=== PATIENT | female | born 1955 | race Caucasian/White ===

== ENCOUNTER → 2016-09-12 | Outpatient (CLI) | payer OTHER ==
[~2016-09-12] MED LIST: CALC-354 PO; CETI10TA84 PO; CHOL1TAB46 PO; CHOL20005 PO; LORA10TA51 PO; MULT-1092 PO; VNTHFA/IN INH
--- NOTE | 2016-09-12 11:21 | DIAGNOSTIC IMAGING REPORT ---
CHEST 2 VIEWS ROUTINE CLINICAL HISTORY: Chest tightness/pressure. COMPARISON STUDY: No previous studies for comparison. FINDINGS: There is no pneumothorax or pleural effusion. There is S-shaped scoliosis of the thoracolumbar spine and pectus excavatum deformity. There is no evidence of pulmonary edema. No consolidation is identified to suggest pneumonia. No pneumothorax or pleural effusion is present. A nipple shadow projects over the left lower lung. IMPRESSION: 1. No acute cardiopulmonary findings. 2. S-shaped scoliosis of the thoracolumbar spine and pectus excavatum deformity. Electronically signed by: Osvaldo Mcadams M.D. 09/12/2016 11:19 AM Dictated Date/Time: 09/12/2016 11:18 AM
[2016-09-12 13:41] LABS: BASO % 1.4 %; BASO ABS # 0.07 K/uL (0-0.2); COMPLETE YES; EOS % 3.2 %; HEMATOCRIT 42.9 % (37-47); IG% 0.2 %; LYMPH % 25.8 %; MEAN CELL VOLUME 91.5 fL (80-100); MEAN CORPUSCULAR HEMOGLOBIN 29.9 pg (25-34); MEAN CORPUSCULAR HGB CONC 32.6 g/dl (32-36); MEAN PLATELET VOLUME 9.7 fL (7.4-10.4); MONO % 10.7 %; NEUT % 58.7 %; PLATELET COUNT 233 K/uL (130-400); RED BLOOD COUNT 4.69 M/uL (4.2-5.4); WHITE BLOOD COUNT 5.03 K/uL (4.8-10.8)
[2016-09-12 14:15] LABS: ALT/SGPT 19 U/L (12-78); BLOOD UREA NITROGEN 16 mg/dl (7-18); BUN/CREATININE RATIO 18.3 (10-20); CALCIUM 9.5 mg/dl (8.5-10.1); CARBON DIOXIDE 26 mmol/L (21-32); CHLORIDE 105 mmol/L (98-107); CREATININE 0.89 mg/dl (0.60-1.20); GLUCOSE 98 mg/dl (70-99); MAGNESIUM 2.3 mg/dl (1.8-2.4); POTASSIUM 3.8 mmol/L (3.5-5.1); SODIUM 140 mmol/L (136-145)
[2016-09-12 14:28] LABS: ALB/GLOB RATIO 1.2 (0.9-2); ALKALINE PHOSPHATASE 60 U/L (45-117); AST/SGOT 13 U/L (15-37)
== END | disposition home or self-care (01) ==
LOC: C.RAD1850 11:05
PROVIDERS: ATTEND Nurse Practitioner
DX: R07.89 Other chest pain (principal)

== ENCOUNTER 2016-09-20 12:54 | Observation (INO) | payer OTHER ==
[~2016-09-20] VITALS: Ht 160 cm; Wt 52.6 kg
[2016-09-20] MEDS ORDERED: ASPIRIN 81 MG CHEW PO STA (13:17)
--- NOTE | 2016-09-20 13:36 | EMERGENCY ROOM VISIT NOTE ---
History First contact with patient: 12:58 Chief Complaint: CHEST PAIN Stated Complaint: CHEST PAIN, L ARM PAIN, SOB, HEART PALPATATIONS Nursing Triage Summary: Pt reports "pinching" intermittent midsternal chest pain, none at present time. States over the past month she has episodes of sob and her heart racing. States she does feel her heart racing in triage. Pt reports "lame" feeling in left shoulder and left wrist/hand. States she is scheduled to have a stress test on . History of Present Illness The patient is a 61 year old female who presents to the Emergency Room via private vehicle accompanied by family with complaints of "chest pain, left arm pain, shortness of breath, heart palpitations". The patient states that since the middle of August she has noticed that her heartbeat seems stronger, and she at times will feel a skipped beat or palpitations of the heart. She states that she did have chest congestion in the past and thought that it could be from this. She states that she saw her family doctor in early September, as she became winded upon ascending stairs. She states that last Monday she saw her family doctor, who placed her upon Claritin, Zyrtec and gave her an inhaler because of the congestion. She states that basic blood work was performed as well as chest x-ray which were normal. 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 There is also a dull sensation in the chest. She denies any pain currently. She denies any history of hypertension or cholesterol. She used to smoke in the past. Review of Systems A complete 10-point Review of Systems was discussed with the patient, with pertinent positives and negatives listed in the History of Present Illness. All remaining Review of Systems questions can be considered negative unless otherwise specified. Past Medical/Surgical History Medical Problems: (1) Chest pain Stomach problems, ulcer Family History Heart disease, high blood pressure, cancer. Social History Smoking Status: Former Smoker Social History: Patient is currently employed and lives alone. Current/Historical Medications Scheduled Calcium Carbonate-Cholecalcife (Caltrate 600+D), 1 TAB PO DAILY Cetirizine (Zyrtec), 10 MG PO QAM Cholecalciferol (Vitamin D3), 2,000 UNITS PO Q2D Cholecalciferol (Vitamin D3), 5,000 UNITS PO Q2D Loratadine (Claritin), 10 MG PO HS Multiple Vitamins W/ Minerals (Centrum Silver 50+Women), 1 TAB PO DAILY Scheduled PRN Albuterol Hfa (Ventolin Hfa), 2-4 PUFFS INH Q6H PRN for Shortness of Breath Allergies Coded Allergies: Latex (Unverified Allergy, Unknown, ., 09/20/16) Uncoded Allergies: UNKOWN MED (Allergy, Mild, HIVES, 09/20/16) had sore on finger and had a herpatic walter got hives from med but doesn't remember name Physical Exam Vital Signs Date Time Temp Pulse Resp B/P (MAP) Pulse Ox O2 Delivery O2 Flow Rate FiO2 09/20/16 17:32 59 20 132/99 96 Room Air 09/20/16 17:10 60 09/20/16 16:25 59 20 151/96 96 Room Air 09/20/16 16:15 96 Room Air 09/20/16 14:29 126/83 09/20/16 14:24 70 13 97 09/20/16 14:01 145/94 09/20/16 13:54 70 18 99 09/20/16 13:31 155/89 09/20/16 13:24 83 20 98 09/20/16 13:10 85 09/20/16 13:08 96 Room Air 09/20/16 13:05 146/92 09/20/16 12:57 36.7 93 18 131/90 97 Room Air Physical Exam VITAL SIGNS - Vital signs and nursing notes were reviewed. Patient is afebrile , but pressure 131/90, non-tachycardic and is saturating well on room air 97%. GENERAL -61-year-old female appearing her stated age who is in no acute distress. Communicates well with provider and answers questions appropriately. SKIN - Without rashes. No petechial rashes. HEAD - NC/AT. LUNGS - Chest wall symmetric without accessory muscle use, intercostals retractions, or central cyanosis. Normal vesicular breath sounds CTA B/L. No wheezes, rales, or rhonchi appreciated. CARDIAC - RRR with S1/S2. No murmur, rubs, or gallops appreciated. ABDOMEN - Abdominal contour without pulsations or visible masses. BS normoactive all four quadrants. No tenderness, palpable masses, hepatosplenomegaly, or ascites noted. EXTREMITIES - No clubbing or peripheral cyanosis. No pretibial edema present. +5 /5 strength noted in UE/LE bilaterally. NEUROLOGIC - Cranial nerves II through XII grossly intact. Sensory intact to light touch throughout. PSYCH - A&O. Pt is very pleasant and interacts well with examiner. Medical Decision & Procedures ER Provider Diagnostic Interpretation: CHEST ONE VIEW PORTABLE CLINICAL HISTORY: Chest pressure, dyspnea pain COMPARISON STUDY: 09/12/2016 FINDINGS: The bones soft tissues and hemidiaphragms are normal. The cardiomediastinal silhouette is normal. The lungs are clear. The pulmonary vasculature is normal. IMPRESSION: Negative chest. The above report was generated using voice recognition software. It may contain grammatical, syntax or spelling errors. Electronically signed by: Lon Castillo M.D. 09/20/2016 1:48 PM Laboratory Results 09/20/16 13:30 Red Blood Count 4.47, Mean Corpuscular Volume 89.3, Mean Corpuscular Hemoglobin 30.0, Mean Corpuscular Hemoglobin Concent 33.6, Mean Platelet Volume 8.9, Neutrophils (%) (Auto) 52.3, Lymphocytes (%) (Auto) 37.6, Monocytes (%) (Auto) 7.9, Eosinophils (%) (Auto) 1.3, Basophils (%) (Auto) 0.9, Neutrophils # (Auto) 2.80, Lymphocytes # (Auto) 2.01, Monocytes # (Auto) 0.42, Eosinophils # (Auto) 0.07, Basophils # (Auto) 0.05 09/20/16 13:30 Test 09/20/16 13:30 09/20/16 13:35 White Blood Count 5.35 K/uL (4.8-10.8) Red Blood Count 4.47 M/uL (4.2-5.4) Hemoglobin 13.4 g/dL (12.0-16.0) Hematocrit 39.9 % (37-47) Mean Corpuscular Volume 89.3 fL (80-100) Mean Corpuscular Hemoglobin 30.0 pg (25-34) Mean Corpuscular Hemoglobin Concent 33.6 g/dl (32-36) Platelet Count 223 K/uL (130-400) Mean Platelet Volume 8.9 fL (7.4-10.4) Neutrophils (%) (Auto) 52.3 % Lymphocytes (%) (Auto) 37.6 % Monocytes (%) (Auto) 7.9 % Eosinophils (%) (Auto) 1.3 % Basophils (%) (Auto) 0.9 % Neutrophils # (Auto) 2.80 K/uL (1.4-6.5) Lymphocytes # (Auto) 2.01 K/uL (1.2-3.4) Monocytes # (Auto) 0.42 K/uL (0.11-0.59) Eosinophils # (Auto) 0.07 K/uL (0-0.5) Basophils # (Auto) 0.05 K/uL (0-0.2) RDW Standard Deviation 40.1 fL (36.4-46.3) RDW Coefficient of Variation 12.4 % (11.5-14.5) Immature Granulocyte % (Auto) 0.0 % Immature Granulocyte # (Auto) 0.00 K/uL (0.00-0.02) Prothrombin Time 10.7 SECONDS (9.0-12.0) Prothromb Time International Ratio 1.0 (0.9-1.1) Activated Partial Thromboplast Time 30.3 SECONDS (21.0-31.0) Partial Thromboplastin Ratio 1.2 Anion Gap 6.0 mmol/L (3-11) Est Creatinine Clear Calc Drug Dose 49.4 ml/min Estimated GFR () 72.7 Estimated GFR (Non- 62.7 BUN/Creatinine Ratio 22.1 (10-20) Calcium Level 9.5 mg/dl (8.5-10.1) Total Bilirubin 0.5 mg/dl (0.2-1) Aspartate Amino Transf (AST/SGOT) 18 U/L (15-37) Alanine Aminotransferase (ALT/SGPT) 22 U/L (12-78) Alkaline Phosphatase 53 U/L (45-117) Total Protein 7.4 gm/dl (6.4-8.2) Albumin 4.0 gm/dl (3.4-5.0) Globulin 3.4 gm/dl (2.5-4.0) Albumin/Globulin Ratio 1.2 (0.9-2) Thyroid Stimulating Hormone (TSH) 1.820 uIu/ml (0.300-4.500) Lyme Disease IgG Antibody NEG (NEG) Lyme Disease IgM Antibody NEG (NEG) Bedside D-Dimer 259 ng/mlFEU (0-450) Bedside Troponin I < 0.030 ng/ml (0-0.045) Medications Administered Medications (Trade) Dose Ordered Sig/Tong Route Start Time Stop Time Status Last Admin Dose Admin Aspirin (Aspirin Chew) 324 mg NOW STAT PO 09/20/16 13:17 09/20/16 13:19 DC 09/20/16 13:38 324 MG Medical Decision Patient was seen and evaluated as above. After obtaining a thorough history and physical examination IV access was initiated. Workup was performed. Patient presents to us today with chest pain that has been going on for approximately 1 month, however today became exertional. She states that she was scheduled for a stress test this , but because of her exertional symptoms came here to the emergency department. Today's exertional symptoms were associated with that of left shoulder discomfort and left hand tingling. She has no previous history of cardiac events. Chest x-ray was negative. CBC reveals no leukocytosis or anemia. Coags were unremarkable. D-dimer is normal. CMP reveals potassium low at 3.3, chloride high at 110. Troponin is negative. TSH is unremarkable. Testing is negative. Patient's EKG reveals sinus rhythm with PACs. There is a nonspecific ST segment abnormality. There is no previous for comparison. The patient this time I believe should be admitted for further evaluation and management of her exertional chest pain. The case was discussed with my attending, and subsequently the hospitalist. Please refer to further evaluation and management regarding her stay. In the evaluation treatment this patient following differential diagnoses were entertained: MD, PE, unstable angina, angina, costochondritis, GERD, among others. Impression Primary Impression: Chest pain Additional Impression: Hypokalemia Departure Information Dispostion Admitted as an inpatient Condition FAIR Referrals Elza Barrera C.R.N.P. (PCP) Patient Instructions My [facility] Problem Qualifiers
[2016-09-20 13:42] LABS: BASO % 0.9 %; BASO ABS # 0.05 K/uL (0-0.2); COMPLETE YES; EOS % 1.3 %; HEMATOCRIT 39.9 % (37-47); LYMPH % 37.6 %; LYMPH ABS # 2.01 K/uL (1.2-3.4); MEAN CELL VOLUME 89.3 fL (80-100); MEAN CORPUSCULAR HGB CONC 33.6 g/dl (32-36); MEAN PLATELET VOLUME 8.9 fL (7.4-10.4); MONO % 7.9 %; NEUT % 52.3 %; PLATELET COUNT 223 K/uL (130-400); RED BLOOD COUNT 4.47 M/uL (4.2-5.4); WHITE BLOOD COUNT 5.35 K/uL (4.8-10.8)
[2016-09-20] MEDS ORDERED: LORA10TA51 PO (13:47)
[2016-09-20] MEDS ORDERED: CHOL1TAB46 PO (13:47)
[2016-09-20] MEDS ORDERED: MULT-1092 PO (13:47)
[2016-09-20] MEDS ORDERED: VNTHFA/IN INH (13:47)
[2016-09-20] MEDS ORDERED: CHOL20005 PO (13:47)
[2016-09-20] MEDS ORDERED: CALC-354 PO (13:47)
[2016-09-20] MEDS ORDERED: CETI10TA84 PO (13:47)
--- NOTE | 2016-09-20 13:49 | DIAGNOSTIC IMAGING REPORT ---
CHEST ONE VIEW PORTABLE CLINICAL HISTORY: Chest pressure, dyspnea pain COMPARISON STUDY: 09/12/2016 FINDINGS: The bones soft tissues and hemidiaphragms are normal. The cardiomediastinal silhouette is normal. The lungs are clear. The pulmonary vasculature is normal. IMPRESSION: Negative chest. The above report was generated using voice recognition software. It may contain grammatical, syntax or spelling errors. Electronically signed by: Lon Castillo M.D. 09/20/2016 1:48 PM Dictated Date/Time: 09/20/2016 1:47 PM
[2016-09-20 13:50] LABS: PARTIAL THROMBOPLASTIN RATIO 1.2; PROTHROMBIN TIME (PATIENT) 10.7 SECONDS (9.0-12.0)
[2016-09-20 13:54] LABS: POINT OF CARE TROPONIN I < 0.030 ng/ml (0-0.045)
[2016-09-20 14:04] LABS: BUN/CREATININE RATIO 22.1 (10-20); CALCIUM 9.5 mg/dl (8.5-10.1); CREATININE 0.98 mg/dl (0.60-1.20); POTASSIUM 3.3 mmol/L (3.5-5.1)
[2016-09-20 14:15] LABS: ALB/GLOB RATIO 1.2 (0.9-2); THYROID STIMULATING HORMONE 1.82 uIu/ml (0.300-4.500)
[2016-09-20 14:40] LABS: LYME DISEASE AB IGG NEG (NEG); LYME DISEASE AB IGM NEG (NEG)
[2016-09-20 16:15] VITALS: O2SAT 96; Ht 160 cm; Wt 52.6 kg
[2016-09-20] MEDS ORDERED: MoRPHine SULFATE 2 MG/ML CARP IV PRN (17:00)
[2016-09-20] MEDS ORDERED: NITROGLYCERIN 0.4 MG SL PER TAB CHARGE SL PRN (17:00)
[2016-09-20] MEDS ORDERED: ACETAMINOPHEN 325 MG TAB PO PRN (17:00)
[2016-09-20] MEDS ORDERED: ONDANSETRON INJ 2 MG/ML 2 ML VIAL IV PRN (17:00)
[2016-09-20] MEDS ORDERED: ALBUTEROL HFA 8 GM INHALER INH PRN (17:15)
--- NOTE | 2016-09-20 17:54 | History and Physical ---
History & Physical Date & Time of Service: Sep 20, 2016 at 16:32 Chief Complaint: Chest Pain, L Arm Pain, Sob, Heart Palpatations Primary Care Physician: Elza Barrera C.R.N.P. History of Present Illness Source: patient, family Pt is a 61 yo female with a h/o osteoporosis and seasonal allergies who presents with a h/o 1 month of intermittent chest tightness that waxes and wanes and palpitations that are intermittent. She was having some associated post-nasal gtt and cough with chest congestion for a few months prior. Thought to initially be from allergies. She was prescribed Claritin and Zyrtec and albuterol inhaler by PCP, had CXR and ECG which were normal as per pt. The meds did help with her congestion in her face and chest but the chest tightness and palpitations never went away. In fact, the chest pressure is constant and has never gone away in over one month. The palpitations do come on every day and tend to be later in the afternoon. 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 Denies associated N/V, no associated diaphoresis. No syncope. SHe came to the ER due to the acute worsening of the atypical chest pain. 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) Allergies Coded Allergies: Latex (Unverified Allergy, Unknown, ., 09/20/16) Uncoded Allergies: UNKOWN MED (Allergy, Mild, HIVES, 09/20/16) had sore on finger and had a herpatic walter got hives from med but doesn't remember name Home Medications Scheduled Calcium Carbonate-Cholecalcife (Caltrate 600+D), 1 TAB PO DAILY Cetirizine (Zyrtec), 10 MG PO QAM Cholecalciferol (Vitamin D3), 2,000 UNITS PO Q2D Cholecalciferol (Vitamin D3), 5,000 UNITS PO Q2D Loratadine (Claritin), 10 MG PO HS Multiple Vitamins W/ Minerals (Centrum Silver 50+Women), 1 TAB PO DAILY Scheduled PRN Albuterol Hfa (Ventolin Hfa), 2-4 PUFFS INH Q6H PRN for Shortness of Breath Review of Systems Constitutional: No fever, No chills Eyes: No problem reported ENT: No problem reported Respiratory: + cough (occasionally with her palpitations), + shortness of breath (off and on at rest and sometimes with exertion) Cardiovascular: + chest pain, + palpitations, No edema Abdomen: No pain, No nausea, No vomiting Musculoskeletal: No problem reported Genitourinary - Female: No problem reported Neurologic: + numbness/tingling (left hand) Psychiatric: + anxiety Endocrine: No problem reported Hematologic / Lymphatic: No problem reported Integumentary: No problem reported Allergic / Immunologic: + seasonal allergies Physical Exam Vital Signs Date Time Temp Pulse Resp B/P (MAP) Pulse Ox O2 Delivery O2 Flow Rate FiO2 09/20/16 16:25 59 20 151/96 96 Room Air 09/20/16 14:29 126/83 09/20/16 14:24 70 13 97 09/20/16 14:01 145/94 09/20/16 13:54 70 18 99 09/20/16 13:31 155/89 09/20/16 13:24 83 20 98 09/20/16 13:10 85 09/20/16 13:08 96 Room Air 09/20/16 13:05 146/92 09/20/16 12:57 36.7 93 18 131/90 97 Room Air General Appearance: no apparent distress, + thin Head: normocephalic, atraumatic Eyes: normal inspection, EOMI, sclerae normal ENT: hearing grossly normal, pharynx normal Neck: no JVD, trachea midline Respiratory/Chest: lungs clear, normal breath sounds, no respiratory distress, no accessory muscle use Cardiovascular: regular rate, rhythm, no edema, no gallop, + diastolic murmur ( 2/6 heard best at LLSB into apex), + extra beats Abdomen/GI: normal bowel sounds, non tender, soft, no organomegaly, no pulsatile mass Back: normal inspection Extremities/Musculoskelatal: normal inspection, no calf tenderness, normal capillary refill, no pedal edema, + pertinent finding (2+ DP pulses bilat, no wounds) Neurologic/Psych: alert, oriented x 3, + pertinent finding (very anxious, talkative) Skin: normal color, warm/dry, no rash Lymphatic: no adenopathy Diagnostics Laboratory Results Results Past 24 Hours Test 09/20/16 13:30 09/20/16 13:35 Range/Units White Blood Count 5.35 4.8-10.8 K/uL Red Blood Count 4.47 4.2-5.4 M/uL Hemoglobin 13.4 12.0-16.0 g/dL Hematocrit 39.9 37-47 % Mean Corpuscular Volume 89.3 80-100 fL Mean Corpuscular Hemoglobin 30.0 25-34 pg Mean Corpuscular Hemoglobin Concent 33.6 32-36 g/dl Platelet Count 223 130-400 K/uL Mean Platelet Volume 8.9 7.4-10.4 fL Neutrophils (%) (Auto) 52.3 % Lymphocytes (%) (Auto) 37.6 % Monocytes (%) (Auto) 7.9 % Eosinophils (%) (Auto) 1.3 % Basophils (%) (Auto) 0.9 % Neutrophils # (Auto) 2.80 1.4-6.5 K/uL Lymphocytes # (Auto) 2.01 1.2-3.4 K/uL Monocytes # (Auto) 0.42 0.11-0.59 K/uL Eosinophils # (Auto) 0.07 0-0.5 K/uL Basophils # (Auto) 0.05 0-0.2 K/uL RDW Standard Deviation 40.1 36.4-46.3 fL RDW Coefficient of Variation 12.4 11.5-14.5 % Immature Granulocyte % (Auto) 0.0 % Immature Granulocyte # (Auto) 0.00 0.00-0.02 K/uL Prothrombin Time 10.7 9.0-12.0 SECONDS Prothromb Time International Ratio 1.0 0.9-1.1 Activated Partial Thromboplast Time 30.3 21.0-31.0 SECONDS Partial Thromboplastin Ratio 1.2 Sodium Level 140 136-145 mmol/L Potassium Level 3.3 3.5-5.1 mmol/L Chloride Level 110 98-107 mmol/L Carbon Dioxide Level 24 21-32 mmol/L Anion Gap 6.0 3-11 mmol/L Blood Urea Nitrogen 22 7-18 mg/dl Creatinine 0.98 0.60-1.20 mg/dl Est Creatinine Clear Calc Drug Dose 49.4 ml/min Estimated GFR () 72.7 Estimated GFR (Non- 62.7 BUN/Creatinine Ratio 22.1 10-20 Random Glucose 87 70-99 mg/dl Calcium Level 9.5 8.5-10.1 mg/dl Total Bilirubin 0.5 0.2-1 mg/dl Aspartate Amino Transf (AST/SGOT) 18 15-37 U/L Alanine Aminotransferase (ALT/SGPT) 22 12-78 U/L Alkaline Phosphatase 53 45-117 U/L Total Protein 7.4 6.4-8.2 gm/dl Albumin 4.0 3.4-5.0 gm/dl Globulin 3.4 2.5-4.0 gm/dl Albumin/Globulin Ratio 1.2 0.9-2 Thyroid Stimulating Hormone (TSH) 1.820 0.300-4.500 uIu/ml Lyme Disease IgG Antibody NEG NEG Lyme Disease IgM Antibody NEG NEG Bedside D-Dimer 259 0-450 ng/mlFEU Bedside Troponin I < 0.030 0-0.045 ng/ml CXR normal EKG NSR, PACs, mild depression ST segment V5-6 Impression Assessment and Plan Pt is a 61 yo female with a h/o osteoporosis and seasonal allergies who presents with a h/o 1 month of intermittent chest tightness that waxes and wanes and palpitations that are intermittent. She was having some associated post-nasal gtt and cough with chest congestion for a few months prior. Thought to initially be from allergies. She was prescribed Claritin and Zyrtec and albuterol inhaler by PCP, had CXR and ECG which were normal as per pt. The meds did help with her congestion in her face and chest but the chest tightness and palpitations never went away. In fact, the chest pressure is constant and has never gone away in over one month. The palpitations do come on every day and tend to be later in the afternoon. 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 Denies associated N/V, no associated diaphoresis. No syncope. SHe came to the ER due to the acute worsening of the atypical chest pain. Atypical Chest pain-->not likely to be cardiac in nature given it has been constant for over a month now. Troponin negative on admission, no definite ischemic changes on ECG. -trend troponins -check Stress ECHO -appreciate Cardiology consult for any further input Palpitations, frequent PACs--> likely PACs as cause of her palpitations. Very anxious person in general, caffeine use, recent antihistamine and albuterol use all could be contributing as well. Has diastolic murmur as well on exam. TSH normal -tele monitoring to assess for burden of PACs, may need Holter as outpatient as well -advised to cut out all caffeine and chocolate -consider starting beta alexandre -Cardio consult -check ECHO for further eval of murmur especially in light of +FH of valvular issues -Hypokalemia--> replace with po KCl Osteoporosis-stable -taking Vit D, Calcium, receives outpt treatment Anxiety--> exacerbated by hospital stay -consider SSRI as outpt if continues Seasonal allergies- avoid antihistamines right now given frequent PACs Proph-Lovenox Dispo-expect dc to home tomorrow after Cardiac evaluation Level of Care Telemetry Resuscitation Status FULL RESUSCITATION VTE Prophylaxis VTE Risk Assessment Done? Y/N: Yes Risk Level: Low Given or contraindicated: Enoxaparin (Lovenox)SQ Social Service Consult None Apply Additional Copies To Elza Barrera C.R.N.P.
--- NOTE | 2016-09-20 18:37 | Medical Student: [facility] ---
Med Student History & Physical Date & Time of Service: Sep 20, 2016 at 18:03 Chief Complaint: Chest Pain, L Arm Pain, Sob, Heart Palpatations Primary Care Physician: Elza Barrera C.R.N.P. History of Present Illness Source: patient 61yo female presenting with one month history persistent chest tightness, SOB, and intermittent palpitations with concurrent dizziness. Initially thought to be associated with seasonal allergies which have been reported as significant this year - itchy ears, itchy/water eyes, cough at end of day. Patient reports continuous chest tightness that changes in intensity but has been continuously present for 1month which she feels causes SOB. These sensations tend to worsen with exertion and are improved somewhat with rest but are not completely relieved. She has also had occasional sharp "pinches" of chest pain that are transient. Throughout, patient also reports daily palpitations where she becomes extremely aware of her heart beat, she is unable to identify how long these sensations last. Patient went to her PCP on 09/12 for symptom relief and was given Claritin, Zyrtec, and albuterol which relieved the allergy symptoms but had limited effect on chest tightness and palpitations. An ekg and chest x- ray were also done with normal results per patient and an outpatient stress test was ordered for later this week. Patient reports she was cleaning a home, carrying a vacuum in her RT hand up a set of stairs when she suddenly began to feel numbness/tingling in her LT hand in addition to LT shoulder/arm "lame-ness ". These sensations continued today and so she came to the ED for evaluation. Denies any NV, changes in urinary/bowel habits, fevers, tachypnea, rashes, new medications/environments (other than documented), diaphoresis, syncope, or pre- syncope. Reports one episode of dizziness upon standing several weeks ago after getting out of a hot car. She states that she has never experienced similar chest tightness before, but has felt skipped beats previously although not this frequently. Past Medical/Surgical History PMH Osteoporosis GERD Herpes Simplex Virus - genital Allergies: Latex, seasonal Vaccinations: up to date PSH None Family History Father: congenital v. 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 Lives alone 1 daughter, 1 son Former smoker - occasionally in high school and college, fully quit 32years ago Occasional alcohol - wine maybe once a week Denies illicit drug use Activity: does Pilates regularly Smoking Status: Former Smoker (smoked occasionally in [employer] school and college , quit 35 yrs ago) Smokeless Tobacco Use: No Alcohol Use: occasionally (1 glass wine once weekly) Drug Use: none 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) Allergies Coded Allergies: Latex (Unverified Allergy, Unknown, ., 09/20/16) Uncoded Allergies: UNKOWN MED (Allergy, Mild, HIVES, 09/20/16) had sore on finger and had a herpatic walter got hives from med but doesn't remember name Medications Albuterol Hfa (Ventolin Hfa), 2-4 PUFFS INH Q6H PRN for Shortness of Breath Calcium Carbonate-Cholecalcife (Caltrate 600+D), 1 TAB PO DAILY Cetirizine (Zyrtec), 10 MG PO QAM Cholecalciferol (Vitamin D3), 2,000 UNITS PO Q2D Cholecalciferol (Vitamin D3), 5,000 UNITS PO Q2D Loratadine (Claritin), 10 MG PO HS Multiple Vitamins W/ Minerals (Centrum Silver 50+Women), 1 TAB PO DAILY Review of Systems Constitutional: No fever, No chills, No sweats, No weight loss Eyes: No problem reported ENT: + dental problems (Chronic - work being done) Respiratory: + shortness of breath, + dyspnea on exertion (occasionally) Cardiovascular: + chest pain (occasional, sharp "pinch"), + palpitations (daily ), No edema Abdomen: + diarrhea (1 episode 09/19 ), No pain, No nausea, No vomiting Musculoskeletal: + problem reported (LT shoulder/arm "lame-ness"), No swelling Neurologic: + numbness/tingling (LT hand, intermittent), + vertigo Psychiatric: + anxiety Allergic / Immunologic: + environmental allergies, + seasonal allergies, + food allergies (sulfites, hazelnut sensitivities) Physical Exam Vital Signs (24 Hours) Date Time Temp Pulse Resp B/P (MAP) Pulse Ox O2 Delivery O2 Flow Rate FiO2 09/20/16 17:32 59 20 132/99 96 Room Air 09/20/16 17:10 60 09/20/16 16:25 59 20 151/96 96 Room Air 09/20/16 16:15 96 Room Air 09/20/16 14:29 126/83 09/20/16 14:24 70 13 97 09/20/16 14:01 145/94 09/20/16 13:54 70 18 99 09/20/16 13:31 155/89 09/20/16 13:24 83 20 98 09/20/16 13:10 85 09/20/16 13:08 96 Room Air 09/20/16 13:05 146/92 09/20/16 12:57 36.7 93 18 131/90 97 Room Air General Appearance: WD/WN, + mild distress (anxious) Head: normocephalic, atraumatic Eyes: PERRL, sclerae normal ENT: pharynx normal Neck: supple, no adenopathy, no JVD, no carotid bruits, trachea midline Respiratory/Chest: chest non-tender, lungs clear, normal breath sounds, no respiratory distress, no accessory muscle use Cardiovascular: no edema, no gallop, no JVD, normal peripheral pulses, + diastolic murmur, + extra beats (PACs) Abdomen/GI: normal bowel sounds, non tender, soft, no organomegaly, no pulsatile mass Back: normal inspection Extremities/Musculoskelatal: normal capillary refill, no pedal edema Neurologic/Psych: alert, normal reflexes, + pertinent finding (Anxious) Skin: normal color, warm/dry, no rash Lymphatic: no adenopathy Diagnostics Laboratory Results Results Past 24 Hours Test 09/20/16 13:30 09/20/16 13:35 Range/Units White Blood Count 5.35 4.8-10.8 K/uL Red Blood Count 4.47 4.2-5.4 M/uL Hemoglobin 13.4 12.0-16.0 g/dL Hematocrit 39.9 37-47 % Mean Corpuscular Volume 89.3 80-100 fL Mean Corpuscular Hemoglobin 30.0 25-34 pg Mean Corpuscular Hemoglobin Concent 33.6 32-36 g/dl Platelet Count 223 130-400 K/uL Mean Platelet Volume 8.9 7.4-10.4 fL Neutrophils (%) (Auto) 52.3 % Lymphocytes (%) (Auto) 37.6 % Monocytes (%) (Auto) 7.9 % Eosinophils (%) (Auto) 1.3 % Basophils (%) (Auto) 0.9 % Neutrophils # (Auto) 2.80 1.4-6.5 K/uL Lymphocytes # (Auto) 2.01 1.2-3.4 K/uL Monocytes # (Auto) 0.42 0.11-0.59 K/uL Eosinophils # (Auto) 0.07 0-0.5 K/uL Basophils # (Auto) 0.05 0-0.2 K/uL RDW Standard Deviation 40.1 36.4-46.3 fL RDW Coefficient of Variation 12.4 11.5-14.5 % Immature Granulocyte % (Auto) 0.0 % Immature Granulocyte # (Auto) 0.00 0.00-0.02 K/uL Prothrombin Time 10.7 9.0-12.0 SECONDS Prothromb Time International Ratio 1.0 0.9-1.1 Activated Partial Thromboplast Time 30.3 21.0-31.0 SECONDS Partial Thromboplastin Ratio 1.2 Sodium Level 140 136-145 mmol/L Potassium Level 3.3 3.5-5.1 mmol/L Chloride Level 110 98-107 mmol/L Carbon Dioxide Level 24 21-32 mmol/L Anion Gap 6.0 3-11 mmol/L Blood Urea Nitrogen 22 7-18 mg/dl Creatinine 0.98 0.60-1.20 mg/dl Est Creatinine Clear Calc Drug Dose 49.4 ml/min Estimated GFR () 72.7 Estimated GFR (Non- 62.7 BUN/Creatinine Ratio 22.1 10-20 Random Glucose 87 70-99 mg/dl Calcium Level 9.5 8.5-10.1 mg/dl Total Bilirubin 0.5 0.2-1 mg/dl Aspartate Amino Transf (AST/SGOT) 18 15-37 U/L Alanine Aminotransferase (ALT/SGPT) 22 12-78 U/L Alkaline Phosphatase 53 45-117 U/L Total Protein 7.4 6.4-8.2 gm/dl Albumin 4.0 3.4-5.0 gm/dl Globulin 3.4 2.5-4.0 gm/dl Albumin/Globulin Ratio 1.2 0.9-2 Thyroid Stimulating Hormone (TSH) 1.820 0.300-4.500 uIu/ml Lyme Disease IgG Antibody NEG NEG Lyme Disease IgM Antibody NEG NEG Bedside D-Dimer 259 0-450 ng/mlFEU Bedside Troponin I < 0.030 0-0.045 ng/ml CXR normal EKG Abnormal EKG: Sinus rhythm with premature atrial complexes, nonspecific ST abnormality Impression Assessment and Plan Pleasant, anxious female with no signs of acute distress Chest tightness - Stress echocardiogram to evaluate LV function and r/o ACS - Continue trending troponin levels to r/o ACS - Addition of nitro and morphine PRN for pain management - Begin beta aleaxndre and ACEi for possible ACS with benefit of BP reduction ( 140s/90s) and possibly rhythm control (PACs) - EKG PRN if any changes, chest pain/tightness increases Palpitations secondary to multiple PACs on EKG still present on monitor - Continuous night monitor to determine frequency - Consult with cardiology - Hold home anti-histamines and beta agonist, and correct hypokalemia as potential sources/exacerbation - Limit/eliminate caffeine intake - Stress echocardiogram to evaluate chamber and valvular structure - Beta alexandre for rhythm control if recommended following 24hr night monitor PAC frequency above 15-20% Diastolic Murmur: RT lower sternal border loudest - F/U with echocardiogram results for possible valve abnormality - Patient reaching out to family for clarification of FHX Hypokalemia : 3.3 - Replenish with 40meq oral potassium with goal of at least 3.7 - Repeat BMP prior to discharge Level of Care Telemetry Advanced Directives Existing Living Will: No Existing Power of Home Delivery Driver: No Resuscitation Status FULL RESUSCITATION Social Service Consult None Apply Note Total Time: Critical Care 30 - 74 minutes
[2016-09-20] MEDS ORDERED: POTASSIUM CHLORIDE 10 MEQ TABCR PO STA (19:21)
[2016-09-20] MEDS: ENOXAPARIN 40 MG/0.4 ML SYR SC SCH (20:57)
[2016-09-20] MEDS ORDERED: IV FLUIDS COMPLETED PRN (21:30)
[2016-09-20 23:29] LABS: CKMB/CK RATIO 1.3 (0-3.0)
[2016-09-21] VITALS (15 sets, daily range): BP systolic 97–128; BP diastolic 64–87; PULSE 63–90; TEMP 36.4–37; O2SAT 91–98
[2016-09-21 08:21] LABS: BLOOD UREA NITROGEN 21 mg/dl (7-18); BUN/CREATININE RATIO 18.9 (10-20); CALCIUM 8.8 mg/dl (8.5-10.1); CARBON DIOXIDE 26 mmol/L (21-32); CHLORIDE 112 mmol/L (98-107); CHOLESTEROL 200 mg/dl (0-200); CHOLESTEROL/HDL RATIO 2.6; CKMB/CK RATIO 1.7 (0-3.0); GLUCOSE 87 mg/dl (70-99); HDL CHOLESTEROL 77 mg/dl; LDL CHOLESTEROL CALCULATED 107 mg/dl; POTASSIUM 4.5 mmol/L (3.5-5.1); SODIUM 141 mmol/L (136-145); TRIGLYCERIDES 79 mg/dl (0-150); VERY LOW DENSITY LIPOPROT CALC 16 mg/dl
[2016-09-21] MEDS ORDERED: CALCIUM 600MG + VIT D 400 IU TAB PO SCH (09:00)
[2016-09-21] MEDS ORDERED: CHOLECALCIFEROL 1000 INTER.UNIT TAB PO SCH (09:00)
[2016-09-21] MEDS: ASPIRIN 81 MG ECTAB PO SCH (10:03)
[2016-09-21] MEDS: CALCIUM 600MG + VIT D 400 IU TAB PO SCH (10:03)
--- NOTE | 2016-09-21 10:34 | Cardiology Consultation ---
Cardiology Consultation Date of Consultation: Sep 21, 2016. Attending Physician: Dr. 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 Originally thought this was related to allergies. Treated with claritin/ zyrtec/albuterol Has had similar symptoms during menopause, age 48. Past Medical/Surgical History Osteoporosis, GERD, Genital herpes, Undiagnosed anxiety Family History Father: valve disease; after complications after valve replacement operation Brothers x2: HTN, Murmurs Sister: breast cancer Mother: Possible colon cancer Social History Smoking Status: Former Smoker (smoked occasionally in [employer] school and college , quit 35 yrs ago) History of Alcohol Use: Yes (occasional wine 1 a week or 1 every 2 weeks) Review of Systems Cardiac: + chest pain, + palpitations Neurologic: + numbness/tingling (left hand and arm) All Other Systems: Reviewed and Negative Allergies Coded Allergies: Latex (Unverified Allergy, Unknown, ., 09/20/16) Uncoded Allergies: UNKOWN MED (Allergy, Mild, HIVES, 09/20/16) had sore on finger and had a herpatic walter got hives from med but doesn't remember name Medications Current Inpatient Medications Medications (Trade) Dose Ordered Sig/Tong Route Start Time Stop Time Status Last Admin Dose Admin Enoxaparin Sodium (Lovenox Inj) 40 mg Q24H SC 09/20/16 20:00 10/20/16 19:59 09/20/16 20:57 40 MG Acetaminophen (Tylenol Tab) 650 mg Q4H PRN PO 09/20/16 17:00 10/20/16 16:59 09/21/16 06:20 650 MG Ondansetron HCl (Zofran Inj) 4 mg Q6H PRN IV 09/20/16 17:00 10/20/16 16:59 Nitroglycerin (Nitrostat Tab) 0.4 mg UD PRN SL 09/20/16 17:00 10/20/16 16:59 Morphine Sulfate (MoRPHine SULFATE INJ) 2 mg Q30M PRN IV 09/20/16 17:00 10/04/16 16:59 Aspirin (Ecotrin Tab) 81 mg QAM PO 09/21/16 09:00 10/21/16 08:59 09/21/16 10:03 81 MG Albuterol (Ventolin Hfa Inhaler) 2 puffs Q6H PRN INH 09/20/16 17:15 10/20/16 17:14 Cholecalciferol (Vitamin D Tab) 2,000 inter.unit Q2D@0900 PO 09/21/16 09:00 10/21/16 08:59 09/21/16 10:03 2,000 INTER.UNIT Cholecalciferol (Vitamin D Tab) 5,000 inter.unit Q2D@0900 PO 09/22/16 09:00 10/22/16 08:59 Calcium/Vitamin D (Caltrate Plus Tab) 1 tab DAILY PO 09/21/16 09:00 10/21/16 08:59 09/21/16 10:03 1 TAB Miscellaneous (Iv Fluids Completed) 1 ea PRN PRN N/A 09/20/16 21:30 09/20/17 21:29 Physical Exam Vital Signs Past 12 Hours Date Time Temp Pulse Resp B/P (MAP) Pulse Ox O2 Delivery O2 Flow Rate FiO2 09/21/16 08:30 Room Air 09/21/16 04:23 Room Air 09/21/16 03:57 36.4 79 20 97/64 (75) 96 Room Air 09/21/16 00:18 Room Air 09/21/16 00:06 36.7 73 18 107/66 (80) 96 Room Air Constitutional: General Apperance: heathly-appearing Level of Distress: NAD Ambulation: ambulating normally Head: atraumatic ENMT: hearing grossly normal, pharynx normal Neck: trachea midline Lungs: Respiratory effort: no dyspnea, good air movement Auscultation: breath sounds normal, CTA except as noted, no wheezing Cardiovascular: Apical Impulse: not displaced Heart Auscultation: RRR, pertinent finding (occasional skipped beat ) Peripheral Pulses: Bruits: none appreciated Carotid Pulse: normal on the left, normal on the right Radial Pulse: normal on the left, normal on the right Femoral Pulse: normal on the left, decreased on the left Dorsalis Pedis Pulse: normal on the left, normal on the right Musculoskeletal: normal Extremities: no edema Data Laboratory Results: Last 24 Hours Test 09/20/16 13:30 09/20/16 13:35 09/20/16 22:58 09/21/16 07:13 White Blood Count 5.35 K/uL Red Blood Count 4.47 M/uL Hemoglobin 13.4 g/dL Hematocrit 39.9 % Mean Corpuscular Volume 89.3 fL Mean Corpuscular Hemoglobin 30.0 pg Mean Corpuscular Hemoglobin Concent 33.6 g/dl Platelet Count 223 K/uL Mean Platelet Volume 8.9 fL Neutrophils (%) (Auto) 52.3 % Lymphocytes (%) (Auto) 37.6 % Monocytes (%) (Auto) 7.9 % Eosinophils (%) (Auto) 1.3 % Basophils (%) (Auto) 0.9 % Neutrophils # (Auto) 2.80 K/uL Lymphocytes # (Auto) 2.01 K/uL Monocytes # (Auto) 0.42 K/uL Eosinophils # (Auto) 0.07 K/uL Basophils # (Auto) 0.05 K/uL RDW Standard Deviation 40.1 fL RDW Coefficient of Variation 12.4 % Immature Granulocyte % (Auto) 0.0 % Immature Granulocyte # (Auto) 0.00 K/uL Prothrombin Time 10.7 SECONDS Prothromb Time International Ratio 1.0 Activated Partial Thromboplast Time 30.3 SECONDS Partial Thromboplastin Ratio 1.2 Sodium Level 140 mmol/L 141 mmol/L Potassium Level 3.3 mmol/L 4.5 mmol/L Chloride Level 110 mmol/L 112 mmol/L Carbon Dioxide Level 24 mmol/L 26 mmol/L Anion Gap 6.0 mmol/L 3.0 mmol/L Blood Urea Nitrogen 22 mg/dl 21 mg/dl Creatinine 0.98 mg/dl 1.10 mg/dl Est Creatinine Clear Calc Drug Dose 49.4 ml/min 45.0 ml/min Estimated GFR () 72.7 63.2 Estimated GFR (Non- 62.7 54.5 BUN/Creatinine Ratio 22.1 18.9 Random Glucose 87 mg/dl 87 mg/dl Calcium Level 9.5 mg/dl 8.8 mg/dl Total Bilirubin 0.5 mg/dl Aspartate Amino Transf (AST/SGOT) 18 U/L Alanine Aminotransferase (ALT/SGPT) 22 U/L Alkaline Phosphatase 53 U/L Total Protein 7.4 gm/dl Albumin 4.0 gm/dl Globulin 3.4 gm/dl Albumin/Globulin Ratio 1.2 Thyroid Stimulating Hormone (TSH) 1.820 uIu/ml Lyme Disease IgG Antibody NEG Lyme Disease IgM Antibody NEG Bedside D-Dimer 259 ng/mlFEU Bedside Troponin I < 0.030 ng/ml Total Creatine Kinase 91 U/L 76 U/L Creatine Kinase MB 1.2 ng/ml 1.3 ng/ml Creatine Kinase MB Ratio 1.3 1.7 Troponin I < 0.015 ng/ml < 0.015 ng/ml Triglycerides Level 79 mg/dl Cholesterol Level 200 mg/dl HDL Cholesterol 77 mg/dl LDL Cholesterol, Calculated 107 mg/dl VLDL Cholesterol, Calculated 16 mg/dl Cholesterol/HDL Ratio 2.6 Imaging: EKG: Telemetry reviewed: Assessment & Plan 1) Chest pain: Time frame of symptoms not fitting for cardiac cause, especially with troponins negative Recommend stress echo today, results to follow 2) Intermittent palpitations: PACs on ECG and atypical symptoms warrant stress echo; results to follow Based on history, however, unlikely a cardiac cause. Recommend holter or event monitor on outpatient basis Resident Tracking Resident Involvement: Resident Care Provided Care Provided: Adult Hospital Medicine
--- NOTE | 2016-09-21 13:36 | Procedure Note ---
Pre-Mod Sedation Assessment General Date of Moderate Sedation: Sep 21, 2016. Vital Signs: Vital Signs Past 12 Hours Date Time Temp Pulse Resp B/P (MAP) Pulse Ox O2 Delivery O2 Flow Rate FiO2 09/21/16 12:14 36.7 71 16 114/78 (90) 98 Room Air 09/21/16 12:00 Room Air 09/21/16 08:30 Room Air 09/21/16 04:23 Room Air 09/21/16 03:57 36.4 79 20 97/64 (75) 96 Room Air Review Cardiovascular: no edema, no gallop, no JVD, normal peripheral pulses, + diastolic murmur, + extra beats (PACs) Abdomen: normal bowel sounds, non tender, soft, no organomegaly, no pulsatile mass Lungs: chest non-tender, lungs clear, normal breath sounds, no respiratory distress, no accessory muscle use Airway Class: II Pre-Sedation Airway Assessment Oral Cavity: Capped Teeth, Dentures Able to Visualize Vocal Cords: No Short Thick Neck: No Hx of Sleep Apnea: No Smoking Status: Former Smoker (smoked occasionally in [employer] school and [employer] , quit 35 yrs ago) Mallampati Classification: Class II ASA Classification: Class II Procedure Planning Contraindications-for Mod Sed: None Yes Notes The planned sedation has been discussed with the patient and consent obtained. I have identified the patient, determined the appropriateness of sedation and have assessed the patient immediately prior to the procedure. All medicine(s) and interventions are by my order.
[2016-09-21] MEDS ORDERED: NiCARDipine HCL INJ 2.5 MG/ML 10 ML AMP ONE (13:37)
[2016-09-21] MEDS ORDERED: FENTANYL CITRATE INJ 50 MCG/1 ML 2 ML VIAL ONE (13:38)
[2016-09-21] MEDS ORDERED: HEPARIN SOD (PORCINE) 1000 UNIT/ML 10 ML VIAL ONE (13:38)
[2016-09-21] MEDS ORDERED: NITROGLYCERIN/D5W 100MCG/ML 20ML SYR ONE (13:38)
[2016-09-21] MEDS ORDERED: MIDAZOLAM HCL 1 MG/ML 2ML VIAL ONE (13:38)
[2016-09-21] MEDS ORDERED: SODIUM CHLORIDE 0.9% 1000ML 1,000 ML IV SCH (14:26)
[2016-09-21] MEDS ORDERED: ACETAMINOPHEN 325 MG TAB PO PRN (14:30)
--- NOTE | 2016-09-21 15:10 | EXERCISE STRESS ECHO ---
*NOTICE TO RECEIVING [employer] This information is strictly Confidential and protected under [place] law. [place] law prohibits you from making any further disclosure of this information unless further disclosure is expressly permitted by the written consent of the person to whom it pertains or is authorized by law. A general authorization for the release of medical or other information is not sufficient for this purpose. Hospital accepts no responsibility if the information is made available to any other person, INCLUDING THE PATIENT. Interpretation Summary * Name: TRISTON PEREA Study Date: 09/21/2016 10:10 AM BP: 123/86 mmHg * Patient Location: C.2T\S\S242\S\2 HR: 62 * : 1955 (M/d/yyyy) Gender: Female Height: 62 in * Age: 61 yrs Ethnicity: CA Weight: 115 lb * Ordering Physician: Ashley Snyder * Performed By: Lisseth Alves * * Reason For Study: CHEST PAIN * BSA: 1.5 m2 * -- Conclusions -- * Left ventricular systolic function is normal. * The right ventricular systolic function is normal. * There is moderate mitral regurgitation. * Central prolapse of the mitral valve is noted. * Right ventricular systolic pressure is normal. * Maximal exercise echocardiogram with the suggestion of inducible ischemia in the anterior apex. Procedure Details * ECHOEX, CPT #[id number] * ECHO DOPPLER, CPT #[id number] * ECHO COLOR FLOW, CPT #[id number] Left Ventricle * The left ventricle is normal in size. * There is normal left ventricular wall thickness. * Ejection Fraction = 50-55%. * Left ventricular systolic function is normal. * The left ventricular wall motion is normal at rest. Right Ventricle * The right ventricle is normal size. * The right ventricular systolic function is normal. Atria * The left atrial size is normal. * Right atrial size is normal. Mitral Valve * The mitral valve leaflets appear thickened, but open well. * Central prolapse of the mitral valve is noted. * There is moderate mitral regurgitation. * The mitral regurgitant jet is eccentrically directed. Tricuspid Valve * The tricuspid valve is not well visualized, but is grossly normal. * There is mild tricuspid regurgitation. * Right ventricular systolic pressure is normal. Aortic Valve * The aortic valve is normal in structure and function. Pericardium * There is no pericardial effusion. Stress Parameters * Normal baseline electrocardiogram. * Stress ECG: No ST changes. No arrhythmias. * The stress portion of this study was personally supervised by the undersigned interpreting physician. * Rest heart rate was '62' BPM. * Rest blood pressure was '123/86' * Maximum heart rate achieved was 164 bpm. * Maximum heart rate was 102 % of maximum age-predicted heart rate. * Maximum blood pressure was '178/71' * Total exercise time was '7:30' * Maximum exercise MET level achieved was '9.2' METS * Maximum treadmill speed was '3.40' miles per hour. * Maximum treadmill elevation was '14.00'% grade. * Exercise was terminated due to 'fatigue' * The patient exhibited arm pain during exercise. * Normal blood pressure response to exercise. * Target heart rate achieved. Left Ventricular Findings with Stress * Normal baseline EKG with some ST segment flattening during exercise. Resolved quickly in recovery. Normal baseline echocardiogram with poor augmentation of the anterior apex during peak exertion. Some dyspnea and mild chest pain during exercise. Normal heart rate and BP response to excercise. [employer] 2D Measurements and Calculations IVSd 0.87 cm IVSs 1.3 cm LVIDd 4.4 cm LVIDs 3.2 cm LVPWd 1.1 cm LVPWs 1.8 cm IVS/LVPW 0.77 FS 27.4 % EDV(Teich) 86.1 ml ESV(Teich) 40.0 ml EF(Teich) 53.5 % EDV(cubed) 83.2 ml ESV(cubed) 31.8 ml EF(cubed) 61.7 % % IVS thick 50.6 % % LVPW thick 54.6 % LV mass(C)d 146.4 grams LV mass(C)dI 96.9 grams/m\S\2 LV mass(C)s 175.5 grams LV mass(C)sI 116.2 grams/m\S\2 CO(Teich) 3.3 l/min CI(Teich) 2.2 l/min/m\S\2 SV(Teich) 46.1 ml SI(Teich) 30.5 ml/m\S\2 CO(cubed) 3.6 l/min CI(cubed) 2.4 l/min/m\S\2 SV(cubed) 51.4 ml SI(cubed) 34.0 ml/m\S\2 ACS 1.4 cm LA dimension 3.7 cm LVOT diam 1.7 cm LVOT area 2.4 cm\S\2 LVAd ap4 22.8 cm\S\2 LVLd ap4 7.0 cm EDV(MOD-sp4) 62.1 ml LVAs ap4 14.6 cm\S\2 LVLs ap4 6.4 cm ESV(MOD-sp4) 28.0 ml EF(MOD-sp4) 54.9 % LVAd ap2 19.1 cm\S\2 LVLd ap2 6.3 cm EDV(MOD-sp2) 48.3 ml LVAs ap2 12.0 cm\S\2 LVLs ap2 5.5 cm ESV(MOD-sp2) 23.3 ml EF(MOD-sp2) 51.8 % CO(MOD-sp4) 2.4 l/min CI(MOD-sp4) 1.6 l/min/m\S\2 SV(MOD-sp4) 34.1 ml SI(MOD-sp4) 22.6 ml/m\S\2 CO(MOD-sp2) 1.8 l/min CI(MOD-sp2) 1.2 l/min/m\S\2 SV(MOD-sp2) 25.0 ml SI(MOD-sp2) 16.5 ml/m\S\2 Doppler Measurements and Calculations MV E max zeeshan 63.8 cm/sec MV A max zeeshan 56.2 cm/sec MV E/A 1.1 MV dec time 0.29 sec Ao V2 max 132.5 cm/sec Ao max PG 7.0 mmHg Ao max PG (full) 3.0 mmHg KEN(V,A) 1.8 cm\S\2 KEN(V,D) 1.8 cm\S\2 LV V1 max PG 4.0 mmHg LV V1 max 100.4 cm/sec MR max zeeshan 533.8 cm/sec MR max PG 114.0 mmHg PA V2 max 68.9 cm/sec PA max PG 1.9 mmHg PI end-d zeeshan 88.2 cm/sec TR max zeeshan 197.6 cm/sec
--- NOTE | 2016-09-21 17:42 | Procedure Note ---
Cardiac Cath Report Procedure: Cardiac catheterization Staff apartment leasing manager: Antoine Merritt Indication: Patient with persistent chest discomfort and abnormal stress echocardiogram suggestive of inducible ischemia in the anterior apex. Procedure in detail: Patient was informed of the risks benefits and alternatives to the intended procedure. She understood such in which proceed. She was taken to the cardiac catheterization suite in a fasting state. Conscious sedation was administered per protocol and the patient was monitored electrocardiographically throughout today's procedure. The right wrist area was prepped and draped in usual sterile fashion. This area was anesthetized using subcutaneous Mr. a fuller of lidocaine solution. The right radial artery was subsequently access using modified son in technique and a 5 [place] arterial sheath was placed at the site over guidewire. The sheath was used still that patch to the cardiac catheter for engagement of the coronary arteries. Coronary angiography was performed in multiple orthogonal views prior to removal of the catheter and sheath. Hemostasis was achieved at the access site using manual pressure. Patient tolerated procedure well there were no immediate complications Equipment: 5 [place]ander tiger 4 Findings: Hemodynamics opening aortic pressure was 102/67. Closing aortic pressure was 114/67. Coronary angiography: Left main the left main coronary was very short and essentially non-existent with almost dual ostial anatomy. Left anterior descending: Left anterior descending artery was large transapical vessel produced a very small 1st diagonal and a large 2nd diagonal. There was evidence of hypertensive arteriopathy. There were no obstructive lesions in this distribution. Left circumflex: Left circumflex was a nondominant vessel he produced a very high small OM 1, small om 2 and a large OM3 system. There is no evidence of obstructive disease in this distribution Right coronary artery: Right coronary artery was a dominant vessel supplying a large PL and PDA branch. There was no significant disease in the right coronary distribution. Impression: Normal coronary arteries without evidence of obstructive coronary disease.
--- NOTE | 2016-09-21 17:49 | Discharge Instructions ---
Discharge Instructions Date of Service Sep 21, 2016. Admission Reason for Admission: Chest Pain Discharge Discharge Diagnosis / Problem: Atypical chest pain Discharge Goals Goal(s): Decrease discomfort Activity Recommendations Activity Limitations: resume your previous activity . Instructions / Follow-Up Instructions / Follow-Up Primary Care Doctor in 1 week Dermatologist in 1 month Current Hospital Diet Patient's current hospital diet: AHA Diet (Heart Healthy) Discharge Diet Recommended Diet: Regular Diet Pending Studies Studies pending at discharge: no Laboratory Results Lipid Panel Test 09/21/16 07:13 Range/Units Triglycerides Level 79 0-150 mg/dl Cholesterol Level 200 0-200 mg/dl HDL Cholesterol 77 mg/dl Cholesterol/HDL Ratio 2.6 LDL Cholesterol, Calculated 107 mg/dl Medical Emergencies . Who to Call and When: Medical Emergencies: If at any time you feel your situation is an emergency, please call 911 immediately. . Non-Emergent Contact Non-Emergency issues call your: Primary Care Provider . Past History Medical & Surgical History: (1) Mitral valve prolapse . "Provider Documentation" section prepared by Bhupinder Cjea. . VTE Core Measure Inpt VTE Proph given/why not?: Enoxaparin (Lovenox)SQ
--- NOTE | 2016-09-21 18:14 | Hospitalist Progress Note ---
Hospitalist Progress Note Date of Service Sep 21, 2016. Subjective Pt evaluation today including: conversation w/ patient, chart review, lab review Patient was concerned this morning because she was told she would have an echo first and than a stress echo. She was anxious regarding the procedure. I asked cardiology to consult on her case and speak to her prior to the procedure. Objective Vital Signs Date Time Temp Pulse Resp B/P (MAP) Pulse Ox O2 Delivery O2 Flow Rate FiO2 09/21/16 17:30 78 16 112/79 (90) 97 Room Air 09/21/16 16:30 74 18 123/87 (99) 96 Room Air 09/21/16 16:00 78 16 98/76 (83) 95 Room Air 09/21/16 16:00 Room Air 09/21/16 15:30 63 16 104/71 (82) 95 Room Air 09/21/16 15:24 37.0 71 18 128/72 (90) 94 Room Air 09/21/16 15:15 65 16 109/76 (87) 95 Room Air 09/21/16 14:50 65 16 118/74 (89) 91 Room Air 09/21/16 14:35 37.0 64 16 128/76 (93) 98 Room Air 09/21/16 14:34 79 16 132/79 (96) 97 Room Air 09/21/16 14:19 77 16 130/82 (98) 100 Mask 3 09/21/16 12:14 36.7 71 16 114/78 (90) 98 Room Air 09/21/16 12:00 Room Air 09/21/16 08:30 Room Air 09/21/16 04:23 Room Air 09/21/16 03:57 36.4 79 20 97/64 (75) 96 Room Air 09/21/16 00:18 Room Air 09/21/16 00:06 36.7 73 18 107/66 (80) 96 Room Air Physical Exam General Appearance: no apparent distress ENT: hearing grossly normal Neck: trachea midline Respiratory/Chest: lungs clear Cardiovascular: regular rate, rhythm Abdomen: normal bowel sounds Extremities: non-tender Neurologic/Psychiatric: alert Skin: normal color Laboratory Results Last 24 Hours Test 09/20/16 22:58 09/21/16 07:13 Total Creatine Kinase 91 U/L 76 U/L Creatine Kinase MB 1.2 ng/ml 1.3 ng/ml Creatine Kinase MB Ratio 1.3 1.7 Troponin I < 0.015 ng/ml < 0.015 ng/ml Sodium Level 141 mmol/L Potassium Level 4.5 mmol/L Chloride Level 112 mmol/L Carbon Dioxide Level 26 mmol/L Anion Gap 3.0 mmol/L Blood Urea Nitrogen 21 mg/dl Creatinine 1.10 mg/dl Est Creatinine Clear Calc Drug Dose 45.0 ml/min Estimated GFR () 63.2 Estimated GFR (Non- 54.5 BUN/Creatinine Ratio 18.9 Random Glucose 87 mg/dl Calcium Level 8.8 mg/dl Triglycerides Level 79 mg/dl Cholesterol Level 200 mg/dl HDL Cholesterol 77 mg/dl LDL Cholesterol, Calculated 107 mg/dl VLDL Cholesterol, Calculated 16 mg/dl Cholesterol/HDL Ratio 2.6 Assessment and Plan (1) Chest pain Assessment & Plan: Patient went for a stress echo today and results were abnormal....she than went for a cath which revealed no CAD. She can be discharged to home tonight if there is no difficulty with bleeding post procedure. She does have Mitral valve prolapse and will need to be followed by cardiology. (2) Palpitations Assessment & Plan: resolved Discharge planning: home
[2016-09-21] MEDS: ENOXAPARIN 40 MG/0.4 ML SYR SC SCH (20:58)
[2016-09-22 04:10] VITALS: BP 104/67; PULSE 72; TEMP 36.6; O2SAT 97
[2016-09-22 06:56] VITALS: BP 116/73; PULSE 62; TEMP 36.6; O2SAT 97
[2016-09-22] MEDS: ASPIRIN 81 MG ECTAB PO SCH (07:48)
[2016-09-22] MEDS: CALCIUM 600MG + VIT D 400 IU TAB PO SCH (07:48)
[2016-09-22 08:01] VITALS: O2SAT 97
--- NOTE | 2016-09-22 08:17 | Cardiology Follow-Up ---
Subjective Date of Service: Sep 22, 2016. Pt evaluation today including: conversation w/ patient, physical exam History of Present Illness Feeling well. No pain at the access site. Social History Smoking Status: Former Smoker (smoked occasionally in [employer] school and college , quit 35 yrs ago) History of Alcohol Use: Yes (occasional wine 1 a week or 1 every 2 weeks) Review of Systems Cardiac: + chest pain, + palpitations Objective Vital Signs Past 12 Hours Date Time Temp Pulse Resp B/P (MAP) Pulse Ox O2 Delivery O2 Flow Rate FiO2 09/22/16 06:56 36.6 62 18 116/73 (87) 97 Room Air 09/22/16 04:10 36.6 72 18 104/67 (79) 97 Room Air 09/22/16 04:00 Room Air 09/21/16 23:59 Room Air 09/21/16 23:52 37.0 75 18 122/77 (92) 97 Room Air 09/21/16 21:07 36.7 67 18 125/72 (89) 97 Room Air Last Recorded Weight-Kilograms: 52.600 Physical Exam Constitutional: General Apperance: heathly-appearing Level of Distress: NAD Ambulation: ambulating normally Lungs: Respiratory effort: no dyspnea, good air movement Auscultation: breath sounds normal, CTA except as noted, no wheezing Cardiovascular: Apical Impulse: not displaced Heart Auscultation: RRR, pertinent finding (occasional skipped beat ) Peripheral Pulses: Bruits: none appreciated Carotid Pulse: normal on the left, normal on the right Radial Pulse: normal on the left, normal on the right Femoral Pulse: normal on the left, decreased on the left Dorsalis Pedis Pulse: normal on the left, normal on the right Extremities: no edema Wrist site looks good. No hematoma. Good perfusion Data Imaging: EKG: Telemetry reviewed: Assessment and Plan Atypical chest pain Normal coronary evaluation Mitral valve prolapse with regurgitation No evidence of complication from the angiography Plan: D/C home Standard wrist precautions F/u cardiology in several months for valve assessment
[2016-09-22] MEDS ORDERED: CHOLECALCIFEROL 1000 INTER.UNIT TAB PO SCH (09:00)
[2016-09-22 10:35] VITALS: BP 116/73; PULSE 62; TEMP 36.6; O2SAT 97
[2016-09-22 12:01] VITALS: O2SAT 97
--- NOTE | 2016-10-06 05:47 | DISCHARGE SUMMARY ---
Please see dictated H and P for full details of her visit. The patient is a 61-year-old with history of osteoporosis, seasonal allergies, who presented with 1 month history of intermittent chest tightness and she was brought in for cardiac workup, EKG was normal sinus rhythm and troponin was less than 0.03. Diagnosis was atypical chest pain. Stress echo was ordered and cardiology consult. Cardiology felt that her symptoms were atypical also however, recommended a stress echo to further delineate and she also was having palpitations. She had pain with her atrial contractions on the EKG and a Holter monitor was recommended as an outpatient. Normal baseline EKG on stress echo with some ST segment flattening during exercise, quickly recovered during recovery. The patient underwent a cardiac cath to further evaluate her symptoms and her coronary anatomy was within normal limits. She had mitral valve prolapse with regurgitation and she was recommended for discharge home on September 22 in stable condition. She can follow up with her primary care doctor in 1-2 weeks and cardiology in 1 month to follow her mitral valve regurgitation. Time spent in review of the chart, discussion with the patient on the date of discharge 31 minutes.
== END 2016-09-22 12:18 | disposition home or self-care (01) ==
LOC: C.EDB 12:55 → INTOOBSV 17:02 → C.2T 17:02 → ENRESERV 17:44
PROVIDERS: ADMIT Family Medicine; ATTEND Family Medicine
DX: R07.89 Other chest pain (principal); R00.2 Palpitations; M81.0 Age-related osteoporosis without current pathological fracture; Z82.49 Family history of ischemic heart disease and other diseases of the circulatory system; Z82.62 Family history of osteoporosis; Z87.891 Personal history of nicotine dependence; Z87.11 Personal history of peptic ulcer disease; E87.6 Hypokalemia; K21.9 Gastro-esophageal reflux disease without esophagitis

== ENCOUNTER → 2016-09-23 | Outpatient (CLI) | payer OTHER ==
[2016-09-23 15:43] LABS: BUN/CREATININE RATIO 23.2 (10-20); CREATININE 0.91 mg/dl (0.60-1.20); POTASSIUM 3.8 mmol/L (3.5-5.1)
== END | disposition home or self-care (01) ==
LOC: C.LAB1850 14:17
PROVIDERS: ATTEND Internal Medicine Clinical Cardiac Electrophysiology
DX: Z01.89 Encounter for other specified special examinations (principal)

== ENCOUNTER → 2017-04-13 | Outpatient (CLI) | payer OTHER | END | disposition home or self-care (01) | LOC: C.LAB1850 16:25 | PROVIDERS: ATTEND Obstetrics & Gynecology | DX: N94.9 Unspecified condition associated with female genital organs and menstrual cycle (principal) ==

== ENCOUNTER → 2017-10-17 | Outpatient (CLI) | payer OTHER | END | disposition home or self-care (01) | LOC: C.LAB1850 07:55 | PROVIDERS: ATTEND Obstetrics & Gynecology | DX: N94.9 Unspecified condition associated with female genital organs and menstrual cycle (principal) ==

== ENCOUNTER 2022-03-15 07:45 | Inpatient (IN) ==
--- NOTE | 2022-03-15 08:10 | Emergency Department Note ---
History of Present Illness General Chief complaint: Rectal Bleed Stated complaint: BLOOD IN STOOL Time Seen by Provider: 03/15/22 08:05 History of Present Illness Maximum Pain Intensity: 10 This 66-year-old female patient presents to the emergency department with her daughter for evaluation of nausea, vomiting, diarrhea, abdominal pain, rectal bleeding. She started with the abdominal pain, nausea, and multiple episodes of vomiting at 2 AM this morning, but at 6 AM she started having bright red blood in her bowel movements. She has had diarrhea for weeks and was seen by her family doctor yesterday. She was started on a probiotic and Metamucil without improvement. She takes a baby aspirin daily, but no recent NSAIDs or other blood thinners. She does feel fatigued from her symptoms. Per review of the patient's office visit note, she was placed on Bactrim on 12/11/2021 for a UTI and the diarrhea started on 12/19/2021 with a brief improvement of symptoms that then got worse a couple weeks ago. Stool studies were ordered yesterday, but not completed yet. The abdominal pain is all over the abdomen, but somewhat more in the upper abdomen. Bright red blood in the toilet bowl and around her stool along with a few clots. Denies any melena. She feels it was a moderate amount of blood and has had 3-4 episodes of the diarrhea with rectal bleeding this morning. No fevers, chest pain, or SOB. She had heart surgery with 2 valves repaired on Nov 02. Denies recent travel, drinking from outside water sources/well water, and denies known ill contacts. Has never had rectal bleeding before. Last colonoscopy was in 2018 that was normal per patient. She does not think she has ever had polyps, but her brother had colon cancer in his 60's. She denies any heartburn or reflux symptoms. Was not having an upset stomach other than the diarrhea until this morning. Her last EGD was in 2015 per patient that was unremarkable per patient. History of gastric ulcer in 3rd grade, but none since. Home Medications Medication Instructions Recorded Confirmed Type azelastine 137 mcg (0.1 %) nasal 2 spray intranasal DAILY PRN 08/28/20 03/15/22 History spray aerosol Allergy Symptoms fluticasone propionate 50 2 spray intranasal DAILY PRN nasal 03/08/21 03/15/22 Rx mcg/actuation nasal congestion #15.8 mL spray,suspension aspirin 81 mg chewable tablet 81 mg PO DAILY 12/15/21 03/15/22 History metoprolol succinate 25 mg 12.5 mg PO BID #90 tabs 12/20/21 03/15/22 Rx tablet,extended release 24 hr lansoprazole 15 mg capsule,delayed 15 mg PO DAILY #30 caps 02/08/22 03/15/22 Rx release triamterene 37.5 1 tab PO DAILY #90 tabs 03/14/22 03/15/22 Rx mg-hydrochlorothiazide 25 mg tablet (Maxzide-25mg) denosumab 60 mg/mL subcutaneous 0 mg subcut .Q6MOS 03/15/22 03/15/22 History syringe (Prolia) Allergies Allergy/AdvReac Type Severity Reaction Status Date / Time latex Allergy Intermediate Hives-ON Verified 03/15/22 12:46 OCC WITH GLOVES, BLOWING BALLOONS amoxicillin [From Augmentin] Allergy Unknown Rash Verified 03/15/22 12:46 clavulanic acid Allergy Unknown Rash Verified 03/15/22 12:46 [From Augmentin] nitrofurantoin Allergy Unknown Rash, Verified 03/15/22 12:46 [From Macrobid] nausea hazelnut AdvReac Intermediate ASTHMATIC Verified 03/15/22 12:46 SYMPTOMS prochlorperazine AdvReac Unknown Unconscious Unverified 03/14/22 13:06 [From Compazine] DRIED FRUITS AdvReac Intermediate ASTHMATIC Uncoded 03/15/22 12:46 SYMPTOMS Past Med/Surg History Medical History Adnexal cyst Left side- per E[employer] SPECIALIST u/s 08/10/20- "lesion stable to mildly decreased in size" Anxiety Dysfunction of eustachian tube GERD (gastroesophageal reflux disease) Heart palpitations 2017-F/U DR CARRILLO Mitral valve prolapse DR. GHAZAL CARRILLO Osteoporosis Sensorineural hearing loss (SNHL) of left ear with unrestricted hearing of right ear Stomach ulcer Urinary tract infection HX-"OVERACTIVE BLADDER" Surgical History History of cardiac cath NO STENTS-2016 [facility] History of colonoscopy 2013 History of dilation and curettage History of esophagogastroduodenoscopy (EGD) History of tooth extraction Status post fine needle aspiration (~1999) breast Family History Brother Family hx colonic polyps Aneurysm Father Heart disease Hyperlipidemia Myocardial infarction Hypertension Sister Hyperlipidemia Breast cancer, Onset Age: 36 Hypertension Mother Osteoporosis Family history of reaction to anesthesia SLOW TO WAKE UP Denies family history of Ovarian cancer Prostate cancer Colorectal cancer Social History Smoking Status: Never smoker Tobacco Type: Cigarettes Age Started Using Tobacco: 17; Age Quit Using Tobacco: 28; packs per day: 0.5; Second Hand Exposure: Yes (SPOUSE USED TO SMOKE); Hx Alcohol Use: Yes Alcohol type: wine Alcohol Intake Frequency: Monthly or Less Hx Substance Use: No Preferred Language: Armenian Communication Ability: Effective Visual Impairment: No Limitations Hearing Ability: Normal Survey Questionnaire Designer Required: No Beliefs That Will Affect Care: None marital status: Current Living Situation: Alone Current Living Situation Comment: SON current occupational status: employed 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 Physical Exam Vital Signs Vital Signs - 24 hr 03/15/22 07:51 03/15/22 08:06 03/15/22 08:09 Temperature 37.1 C Temperature Source Temporal Artery Scan Pulse Rate 119 H 120 H Pulse Rate [Finger] Pulse Rate from SpO2 Sensor Respiratory Rate 18 22 Respiratory Effort / Characteristics Non-Labored Spontaneous Respiratory Depth Normal Respiratory Pattern Regular Blood Pressure 127/83 123/106 H Blood Pressure [Left Arm] Blood Pressure Mean 97 111 Blood Pressure Mean [Left Arm] Blood Pressure Position Sitting Pulse Oximetry 100 Oxygen Delivery Method Room Air Sepsis Recent Fever Within 48 Hours No Sepsis New/Unexplained Change in Mental Status N/A Sepsis Action Taken by Nursing No Action Required 03/15/22 08:09 03/15/22 08:10 03/15/22 08:14 Temperature Temperature Source Pulse Rate 124 H 121 H 117 H Pulse Rate [Finger] Pulse Rate from SpO2 Sensor 122 H 121 H 118 H Respiratory Rate 25 H 19 15 Respiratory Effort / Characteristics Respiratory Depth Respiratory Pattern Blood Pressure Blood Pressure [Left Arm] Blood Pressure Mean Blood Pressure Mean [Left Arm] Blood Pressure Position Pulse Oximetry 98 98 99 Oxygen Delivery Method Sepsis Recent Fever Within 48 Hours Sepsis New/Unexplained Change in Mental Status Sepsis Action Taken by Nursing 03/15/22 08:14 03/15/22 08:20 03/15/22 08:30 Temperature Temperature Source Pulse Rate 116 H Pulse Rate [Finger] Pulse Rate from SpO2 Sensor 115 H Respiratory Rate 15 Respiratory Effort / Characteristics Respiratory Depth Respiratory Pattern Blood Pressure 134/94 135/96 Blood Pressure [Left Arm] Blood Pressure Mean 107 109 Blood Pressure Mean [Left Arm] Blood Pressure Position Pulse Oximetry 100 Oxygen Delivery Method Sepsis Recent Fever Within 48 Hours Sepsis New/Unexplained Change in Mental Status Sepsis Action Taken by Nursing 03/15/22 08:30 03/15/22 08:40 03/15/22 08:50 Temperature Temperature Source Pulse Rate 113 H 110 H 107 H Pulse Rate [Finger] Pulse Rate from SpO2 Sensor 112 H 110 H 107 H Respiratory Rate 22 30 H 16 Respiratory Effort / Characteristics Respiratory Depth Respiratory Pattern Blood Pressure Blood Pressure [Left Arm] Blood Pressure Mean Blood Pressure Mean [Left Arm] Blood Pressure Position Pulse Oximetry 94 94 98 Oxygen Delivery Method Sepsis Recent Fever Within 48 Hours Sepsis New/Unexplained Change in Mental Status Sepsis Action Taken by Nursing 03/15/22 09:00 03/15/22 09:00 03/15/22 09:10 Temperature Temperature Source Pulse Rate 113 H 114 H Pulse Rate [Finger] Pulse Rate from SpO2 Sensor 113 H 114 H Respiratory Rate 14 11 L Respiratory Effort / Characteristics Respiratory Depth Respiratory Pattern Blood Pressure 131/91 Blood Pressure [Left Arm] Blood Pressure Mean 104 Blood Pressure Mean [Left Arm] Blood Pressure Position Pulse Oximetry 100 100 Oxygen Delivery Method Sepsis Recent Fever Within 48 Hours Sepsis New/Unexplained Change in Mental Status Sepsis Action Taken by Nursing 03/15/22 09:20 03/15/22 10:00 03/15/22 10:00 Temperature Temperature Source Pulse Rate 112 H 118 H Pulse Rate [Finger] Pulse Rate from SpO2 Sensor 119 H Respiratory Rate 24 15 Respiratory Effort / Characteristics Respiratory Depth Respiratory Pattern Blood Pressure 140/91 Blood Pressure [Left Arm] Blood Pressure Mean 107 Blood Pressure Mean [Left Arm] Blood Pressure Position Pulse Oximetry 94 Oxygen Delivery Method Sepsis Recent Fever Within 48 Hours Sepsis New/Unexplained Change in Mental Status Sepsis Action Taken by Nursing 03/15/22 10:30 03/15/22 11:00 Temperature Temperature Source Pulse Rate 110 H Pulse Rate [Finger] 115 H Pulse Rate from SpO2 Sensor Respiratory Rate 19 16 Respiratory Effort / Characteristics Respiratory Depth Respiratory Pattern Blood Pressure Blood Pressure [Left Arm] 113/73 Blood Pressure Mean Blood Pressure Mean [Left Arm] 86 Blood Pressure Position Pulse Oximetry 95 99 Oxygen Delivery Method Sepsis Recent Fever Within 48 Hours Sepsis New/Unexplained Change in Mental Status Sepsis Action Taken by Nursing VITALS: Vitals are noted on the nurse's note and reviewed by myself. GENERAL: The patient is ill-appearing and somewhat pale, but nontoxic, no acute distress, non-diaphoretic. SKIN: Capillary refill <2 sec. EARS: External auditory canals clear, tympanic membranes pearly arauz without erythema or effusion bilaterally. EYES: PERRLA. EOMI. Conjunctivae without injection, sclerae without icterus. NOSE: Patent without discharge. MOUTH: Mucous membranes moist. Uvula midline. Airway patent. NECK: Supple without nuchal rigidity. HEART: Tachycardic without murmurs gallops or rubs. LUNGS: Clear to auscultation bilaterally without wheezes, rales or rhonchi. No retractions or accessory muscle use. ABDOMEN: Positive bowel sounds x 4. Normal tympanic percussion. Soft, diffusely tender to palpation with increased tenderness in the upper abdomen, without masses or organomegaly. Somers sign negative. No guarding or rebound tenderness. No focal RLQ or LLQ tenderness. RECTAL EXAM: Permission to perform the exam. Her daughter was present for exam. No external lesions noted. Small external hemorrhoid without thrombosis. Normal sphincter tone. Internal hemorrhoids are slightly enlarged. No masses, tears, fistulas, fissures, abscess, or other lesion noted. Stool is brown, but Hemoccult positive. MUSCULOSKELETAL: No gross musculoskeletal defects. NEURO: Patient was alert and oriented to person place and time. No focal neurological deficits. Course Administered Medications Lactated Ringer's (Lr) 1,000 mls @ 100 mls/hr IV .Q10H ARNALDO Stop: 03/16/22 12:14 Last Admin: 03/15/22 16:43 Dose: 100 mls/hr Documented By: NEVA Raspberry (Raspberry Syrup 5 Ml Udp) 5 ml PO Q6H ARNALDO Stop: 03/25/22 16:29 Last Admin: 03/15/22 17:09 Dose: 5 ml Documented By: NEVA Vancomycin HCl (Vancomycin Hcl 500 Mg/10 Ml Soln) 500 mg PO Q6H ARNALDO Stop: 03/25/22 17:59 Last Admin: 03/15/22 17:10 Dose: 500 mg Documented By: NEVA Discontinued Medications Potassium Chloride (K El / Wtr) 10 meq in 100 mls @ 100 mls/hr IV ONE ONE; Protocol Stop: 03/15/22 12:25 Last Infusion: 03/15/22 14:22 Dose: 0 mls/hr Documented By: Admin: 03/15/22 12:37 Dose: 100 mls/hr Documented By: NEVA Ciprofloxacin (Cipro / D5w) 400 mg in 200 mls @ 100 mls/hr IV NOW STA; Protocol Stop: 03/15/22 13:25 Last Infusion: 03/15/22 15:44 Dose: 0 mls/hr Documented By: Admin: 03/15/22 13:34 Dose: 100 mls/hr Documented By: NEVA Metronidazole (Flagyl) 500 mg in 100 mls @ 100 mls/hr IV NOW STA Stop: 03/15/22 12:25 Last Infusion: 03/15/22 15:44 Dose: 0 mls/hr Documented By: Admin: 03/15/22 13:34 Dose: 100 mls/hr Documented By: NEVA Cefepime HCl 2,000 mg/ Syringe 20 mls @ 5 mls/min IV NOW STA; Protocol Stop: 03/15/22 11:45 Last Admin: 03/15/22 12:38 Dose: 5 mls/min Documented By: NEVA Cefepime HCl (Maxipime) 20 mls @ 5 mls/min IV NOW STA; Protocol Stop: 03/15/22 12:25 Last Admin: 03/15/22 12:47 Dose: Not Given Documented By: NEVA Lactated Ringer's (Lr) 1,000 mls @ 999 mls/hr IV .Q1H1M ONE Stop: 03/15/22 13:31 Last Infusion: 03/15/22 15:44 Dose: 0 mls/hr Documented By: Admin: 03/15/22 14:25 Dose: 999 mls/hr Documented By: SAM Potassium Chloride (K El / Wtr) 10 meq in 100 mls @ 100 mls/hr IV Q1H ARNALDO Stop: 03/15/22 14:59 Last Admin: 03/15/22 15:36 Dose: 100 mls/hr Documented By: Infusion: 03/15/22 15:24 Dose: 100 mls/hr Documented By: Admin: 03/15/22 14:24 Dose: 100 mls/hr Documented By: SAM Lactated Ringer's (Lr) 1,000 mls @ 999 mls/hr IV .Q1H1M ONE Stop: 03/15/22 16:03 Last Admin: 03/15/22 15:17 Dose: 999 mls/hr Documented By: NEVA Ioversol (Optiray 350 100ml) 90 ml IV ONCE ONE Stop: 03/15/22 10:25 Last Admin: 03/15/22 10:25 Dose: 90 ml Documented By: PAYAM Morphine Sulfate (Morphine Sulfate 2 Mg/Ml Carp) 2 mg IV NOW STA Stop: 03/15/22 08:24 Last Admin: 03/15/22 08:31 Dose: 2 mg Documented By: XENA Non-Formulary Medication (Lansoprazole) 15 mg PO DAILY [facility] Last Admin: 03/15/22 17:08 Dose: Not Given Documented By: NEVA Ondansetron HCl (Ondansetron Inj 2 Mg/Ml 2 Ml Vial) 4 mg IV NOW STA Stop: 03/15/22 08:24 Last Admin: 03/15/22 08:31 Dose: 4 mg Documented By: XENA Raspberry (Raspberry Syrup 5 Ml Udp) 5 ml PO NOW ONE Stop: 03/15/22 12:01 Last Admin: 03/15/22 12:38 Dose: 5 ml Documented By: NEVA Vancomycin HCl (Vancomycin Hcl 500 Mg/10 Ml Soln) 500 mg PO NOW ONE Stop: 03/15/22 12:01 Last Admin: 03/15/22 12:38 Dose: 500 mg Documented By: NEVA Medical Decision Making Differential Diagnosis Differential diagnosis includes hemorrhoids, abscess, fistula, fissure, C. difficile, infectious colitis, ischemic colitis, diverticular bleed, perforation, ulcerative colitis, Crohn's disease, polyp, mass, or others. Laboratory Data Attestation: I reviewed the patient's lab results. 03/15/22 08:07 03/15/22 08:07 Lab Results 03/15/22 03/15/22 03/15/22 Range/Units 08:07 08:07 08:07 WBC 14.10 H (4.8-10.8) K/ul RBC 4.48 (3.93-5.22) M/uL Hgb 13.5 (12.0-16.0) g/dl Hct 39.4 (34.1-44.9) % MCV 87.9 (80.0-100.0) fL MCH 30.1 (25.0-34.0) pg MCHC 34.3 (32.0-36.0) g/dL RDW Std Deviation 38.5 (36.4-46.3) fL RDW Coeff of Ruchi 11.9 (11.5-14.5) % Plt Count 317 (130-400) K/uL MPV 9.5 (9.4-12.3) fL Immature Gran % (Auto) 0.5 % Neut % (Auto) 93.9 % Lymph % (Auto) 2.5 % [place] % (Auto) 2.8 % Eos % (Auto) 0.0 % Baso % (Auto) 0.3 % Neut # (Auto) 13.24 H (1.4-6.5) K/uL Lymph # (Auto) 0.35 L (1.2-3.4) K/uL [place] # (Auto) 0.40 (0.24-0.82) K/uL Eos # (Auto) 0.00 (0-0.50) K/uL Baso # (Auto) 0.04 (0-0.2) K/uL Immature Gran # (Auto) 0.07 H (0.00-0.02) K/uL Echinocytes 1+ ESR (0-30) mm/hr Sodium 142 (136-145) mmol/L Potassium 2.8 L (3.5-5.1) mmol/L Chloride 106 (98-107) mmol/L Carbon Dioxide 19 L (21-32) mmol/L Anion Gap 17 H (3-11) BUN 26 H (6-23) mg/dl Creatinine 1.08 (0.6-1.2) mg/dl Est Cr Clr Drug Dosing 38.9 ml/min Est GFR ( Amer) 62.4 ml/min Est GFR (Non-Af Amer) 53.8 ml/min BUN/Creatinine Ratio 24.1 H (10-20) Glucose 197 H (70-99(Fasting)) mg/dl Lactate (0.4-2.0) mmol/L Calcium 9.9 (8.5-10.1) mg/dl Magnesium (1.7-2.4) mg/dl Total Bilirubin 1.1 H (0.2-1.0) mg/dl AST 26 (13-39) U/L ALT 12 (7-52) U/L Alkaline Phosphatase 64 (34-104) U/L Troponin I High Sens 7.4 (0-14) pg/ml C-Reactive Protein (0-0.5) mg/dl Total Protein 7.2 (6.0-8.3) gm/dl Albumin 4.0 (3.4-5.0) gm/dl Globulin 3.2 (2.5-4.0) gm/dl Albumin/Globulin Ratio 1.3 (0.9-2) Lipase 41 (11-82) U/L Blood Type O Positive Antibody Screen NEGATIVE 03/15/22 03/15/22 03/15/22 Range/Units 08:07 08:07 08:07 WBC (4.8-10.8) K/ul RBC (3.93-5.22) M/uL Hgb (12.0-16.0) g/dl Hct (34.1-44.9) % MCV (80.0-100.0) fL MCH (25.0-34.0) pg MCHC (32.0-36.0) g/dL RDW Std Deviation (36.4-46.3) fL RDW Coeff of Ruchi (11.5-14.5) % Plt Count (130-400) K/uL MPV (9.4-12.3) fL Immature Gran % (Auto) % Neut % (Auto) % Lymph % (Auto) % [place] % (Auto) % Eos % (Auto) % Baso % (Auto) % Neut # (Auto) (1.4-6.5) K/uL Lymph # (Auto) (1.2-3.4) K/uL [place] # (Auto) (0.24-0.82) K/uL Eos # (Auto) (0-0.50) K/uL Baso # (Auto) (0-0.2) K/uL Immature Gran # (Auto) (0.00-0.02) K/uL Echinocytes ESR 30 (0-30) mm/hr Sodium (136-145) mmol/L Potassium (3.5-5.1) mmol/L Chloride (98-107) mmol/L Carbon Dioxide (21-32) mmol/L Anion Gap (3-11) BUN (6-23) mg/dl Creatinine (0.6-1.2) mg/dl Est Cr Clr Drug Dosing ml/min Est GFR ( Amer) ml/min Est GFR (Non-Af Amer) ml/min BUN/Creatinine Ratio (10-20) Glucose (70-99(Fasting)) mg/dl Lactate (0.4-2.0) mmol/L Calcium (8.5-10.1) mg/dl Magnesium 1.8 (1.7-2.4) mg/dl Total Bilirubin (0.2-1.0) mg/dl AST (13-39) U/L ALT (7-52) U/L Alkaline Phosphatase (34-104) U/L Troponin I High Sens (0-14) pg/ml C-Reactive Protein < 0.50 (0-0.5) mg/dl Total Protein (6.0-8.3) gm/dl Albumin (3.4-5.0) gm/dl Globulin (2.5-4.0) gm/dl Albumin/Globulin Ratio (0.9-2) Lipase (11-82) U/L Blood Type Antibody Screen 03/15/22 Range/Units 11:40 WBC (4.8-10.8) K/ul RBC (3.93-5.22) M/uL Hgb (12.0-16.0) g/dl Hct (34.1-44.9) % MCV (80.0-100.0) fL MCH (25.0-34.0) pg MCHC (32.0-36.0) g/dL RDW Std Deviation (36.4-46.3) fL RDW Coeff of Ruchi (11.5-14.5) % Plt Count (130-400) K/uL MPV (9.4-12.3) fL Immature Gran % (Auto) % Neut % (Auto) % Lymph % (Auto) % [place] % (Auto) % Eos % (Auto) % Baso % (Auto) % Neut # (Auto) (1.4-6.5) K/uL Lymph # (Auto) (1.2-3.4) K/uL [place] # (Auto) (0.24-0.82) K/uL Eos # (Auto) (0-0.50) K/uL Baso # (Auto) (0-0.2) K/uL Immature Gran # (Auto) (0.00-0.02) K/uL Echinocytes ESR (0-30) mm/hr Sodium (136-145) mmol/L Potassium (3.5-5.1) mmol/L Chloride (98-107) mmol/L Carbon Dioxide (21-32) mmol/L Anion Gap (3-11) BUN (6-23) mg/dl Creatinine (0.6-1.2) mg/dl Est Cr Clr Drug Dosing ml/min Est GFR ( Amer) ml/min Est GFR (Non-Af Amer) ml/min BUN/Creatinine Ratio (10-20) Glucose (70-99(Fasting)) mg/dl Lactate 3.3 H* (0.4-2.0) mmol/L Calcium (8.5-10.1) mg/dl Magnesium (1.7-2.4) mg/dl Total Bilirubin (0.2-1.0) mg/dl AST (13-39) U/L ALT (7-52) U/L Alkaline Phosphatase (34-104) U/L Troponin I High Sens (0-14) pg/ml C-Reactive Protein (0-0.5) mg/dl Total Protein (6.0-8.3) gm/dl Albumin (3.4-5.0) gm/dl Globulin (2.5-4.0) gm/dl Albumin/Globulin Ratio (0.9-2) Lipase (11-82) U/L Blood Type Antibody Screen Imaging Data Radiologist's Impression: Abdomen/Pelvis CT 03/15/22 08:[address] WITH IV CONTRAST CT DOSE: 277.57 mGycm HISTORY: Vomiting. Generalized abdominal pain TECHNIQUE: Multiaxial CT images of the abdomen and pelvis were performed following the use of intravenous contrast. A dose lowering technique was utilized adhering to the principles of ALARA. COMPARISON STUDY: Abdomen and pelvis CT 10/02/2021. FINDINGS: Groundglass densities at the lung bases favor mild dependent change. There are post sternotomy changes. [id number] compression deformities seen throughout the lumbar spine and T11 level which are new from the prior study. These are technically age indeterminate but likely chronic. Surgical clips seen within the right inguinal region. The liver, gallbladder, pancreas, and adrenal glands are unremarkable. There are few subcentimeter hypodense lesions within the kidneys. These are to be too small to characterize but statistically represent cysts. No hydronephrosis. The main portal vein is patent. Normal caliber abdominal aorta. No retroperitoneal lymphadenopathy. There is a left circumaortic renal vein. The bladder, uterus, bilateral adnexa are unremarkable. There is trace ascites noted. There is diffuse moderate colonic wall thickening most pronounced within the descending colon. There is extrapleural gas at the descending colon consistent with a contained perforation. No loculated fluid collections at this time to suggest an abscess. No dilated loops of bowel to suggest an obstruction. IMPRESSION: 1. Moderate diffuse thickening of the colonic wall consistent with a pancolitis. There is extraluminal gas of the descending colon consistent with a contained perforation. Therefore, ischemic colitis would be the diagnosis of exclusion. Urgent surgical consultation recommended. 2. Trace ascites. 3. No evidence for bowel obstruction. 4. Interval development of multiple compression deformities within the lower thoracic and lumbar spine. These are age-indeterminate but likely chronic. ACT 112: Negative or not required by law. Electronically signed by: Cameron Gonzalez M.D. 03/15/2022 11:04 AM Chest X-Ray 03/15/22 08:23 XR chest 1V portable CLINICAL HISTORY: chest pain, SOB TECHNIQUE: Single frontal radiograph of the chest was obtained. Comparison: Comparison is made to chest radiograph 03/07/2022 FINDINGS: Median sternotomy wires are unchanged. The cardiomediastinal silhouette is stable. Valvular prosthesis is seen. The lungs are clear. No evidence of pleural effusion or pneumothorax. IMPRESSION: No acute abnormalities and in particular no evidence of pneumonia. ACT 112: Negative or not required by law. Electronically signed by: Juarez Granger M.D. 03/15/2022 9:17 AM MDM Narrative I examined the patient. An IV lock was placed and labs were drawn. She was given morphine 2 mg IV, Zofran 4 mg IV, and 1 L normal saline solution bolus. The patient remained tachycardic while in the emergency department despite fluids and pain control. White blood cell count was elevated at 14.10. Hemoglobin normal at 13.5. Potassium low at 2.8 with normal magnesium. She was given a 10 meq K rider in the ER. BUN elevated at 26 with normal creatinine at 1.08. Total bilirubin 1.1, but other LFTs were normal. Lactate elevated at 3.3. Lipase normal at 41. Urinalysis appears more contaminated rather than infected with culture pending. COVID was negative. EKG was interpreted by myself and showed sinus tachycardia at 117 bpm with nonspecific T wave abnormalities, but no acute ST or T wave elevation or inversion. Troponin was negative. Chest x-ray was interpreted by myself and read by radiology as above and was negative for acute cardiopulmonary etiology. CT scan of the abdomen and pelvis was reviewed by myself and read by radiology as above and shows moderate diffuse thickening of the colonic wall consistent with pancolitis. There is extraluminal gas of the descending colon consistent with a contained perforation. Therefore, ischemic colitis would be the diagnosis of exclusion. Surgical surgical consult recommended. Trace ascites. Interval development of multiple compression deformities within the lower thoracic and lumbar spine which are age indeterminant but appear chronic. The patient had been unable to give a stool sample while in the emergency department. I spoke with surgery who presented to the emergency department to evaluate the patient. As the perforation is contained without evidence of peritonitis on exam they recommended conservative management. They recommended the patient to be admitted by the hospitalist with GI consult. They also recommended IV antibiotics in the form of Cipro and Flagyl to start since she is allergic to Augmentin so Zosyn could not be used. Please refer to surgery's dictation for further details. I spoke with the on-call hospitalist who agreed to admit the patient for further evaluation and treatment plan. Please refer to their dictation for further details. The patient's care was transferred in stable condition. Impression & Plan Pancolitis, Hypokalemia, Rectal bleeding Discharge Plan Visit Data Chief Complaint: Rectal Bleed Stated Complaint: BLOOD IN STOOL ED Provider: Price Velasquez ED Midlevel Provider: Phuong Greco Discharge Problem: Pancolitis, Hypokalemia, Rectal bleeding Patient Disposition: Admitted As Inpatient Condition: Good Discharge Instructions Interventions: ED Discharge Assessment Last Done: 03/15/22 16:15
[2022-03-15] MEDS ORDERED: ONDANSETRON INJ 2 MG/ML 2 ML VIAL IV STA (08:23)
[2022-03-15] MEDS ORDERED: MoRPHine SULFATE 2 MG/ML CARP IV STA (08:23)
[2022-03-15 08:47] LABS: Hematocrit (blood only) 39.4 % (34.1-44.9); Hemoglobin 13.5 g/dl (12.0-16.0); Mean Corpuscular Hemoglobin 30.1 pg (25.0-34.0); Mean Corpuscular Hgb Conc 34.3 g/dL (32.0-36.0); Mean Corpuscular Volume 87.9 fL (80.0-100.0); Mean Platelet Volume 9.5 fL (9.4-12.3); Platelet Count 317 K/uL (130-400); RDW Coefficient of Variation 11.9 % (11.5-14.5); RDW Standard Deviation 38.5 fL (36.4-46.3); Red Blood Count 4.48 M/uL (3.93-5.22)
[2022-03-15 09:14] LABS: Basophils # (auto) 0.04 K/uL (0-0.2); Basophils % (auto) 0.3 %; Echinocytes 1+; Immature Granulocytes # (auto) 0.07 K/uL (0.00-0.02); Immature Granulocytes % (auto) 0.5 %; Lymphocytes # (auto) 0.35 K/uL (1.2-3.4); Lymphocytes % (auto) 2.5 %; Monocytes % (auto) 2.8 %; Neutrophils # (auto) 13.24 K/uL (1.4-6.5); Neutrophils % (auto) 93.9 %
--- NOTE | 2022-03-15 09:19 | XRay Report ---
XR chest 1V portable CLINICAL HISTORY: chest pain, SOB TECHNIQUE: Single frontal radiograph of the chest was obtained. Comparison: Comparison is made to chest radiograph 03/07/2022 FINDINGS: Median sternotomy wires are unchanged. The cardiomediastinal silhouette is stable. Valvular prosthesi s is seen. The lungs are clear. No evidence of pleural effusion or pneumothorax. IMPRESSION: No acute abnormalities and in particular no evidence of pneumonia. ACT 112: Negative or not required by law. Electronically signed by: Juarez Granger M.D. 03/15/2022 9:17 AM
[2022-03-15 09:50] LABS: Appearance Urine Cloudy (Clear); Bacteria Urine Automated 4+ (Negative); Bilirubin Urine Negative (Negative); Blood Urine 2+ (Negative); Color Urine Yellow; Epithelial Cell Urine Auto 20-30 /lpf (0-5); Glucose Urine UA Negative (Negative); Ketones Urine 1+ (Negative); Leukocyte Esterase Urine Negative (Negative); Nitrite Urine Negative (Negative); Protein Urine 1+ (Negative); RBC Urine Automated 0-4 /hpf (0-4); Specific Gravity Urine 1.017 (1.000-1.030); Urobilinogen Urine Negative (Negative); pH Urine 6.5 (4.5-7.5)
[2022-03-15 09:51] LABS: Albumin Globulin Ratio 1.3 (0.9-2); BUN Creatinine Ratio 24.1 (10-20); Bilirubin,Total 1.1 mg/dl (0.2-1.0); Calcium 9.9 mg/dl (8.5-10.1); Creatinine Clr Calc Pharmacy 38.9 ml/min; Est GFR (African American) 62.4 ml/min; Est GFR (Non-African American) 53.8 ml/min; Globulin 3.2 gm/dl (2.5-4.0); Potassium 2.8 mmol/L (3.5-5.1); Total Protein 7.2 gm/dl (6.0-8.3)
[2022-03-15 09:55] LABS: Troponin I High Sensitivity 7.4 pg/ml (0-14)
[2022-03-15] MEDS ORDERED: OPTIRAY 350 100ml IV ONE (10:24)
--- NOTE | 2022-03-15 11:05 | CT Scan Report ---
ABDOMEN AND PELVIS CT WITH IV CONTRAST CT DOSE: 277.57 mGycm HISTORY: Vomiting. Generalized abdominal pain TECHNIQUE: Multiaxial CT images of the abdomen and pelvis were performed following the use of intrave nous contrast. A dose lowering technique was utilized adhering to the principles of ALARA. COMPARISON STUDY: Abdomen and pelvis CT 10/02/2021. FINDINGS: Groundglass densities at the lung bases favor mild dependent change. There are post sternot kyler changes. [id number] compression deformities seen throughout the lumbar spine and T11 level which are new from the prior study. These are technically age indeterminate but likely chronic. Surgi rosario clips seen within the right inguinal region. The liver, gallbladder, pancreas, and adrenal glands are unremarkable. There are few subcentimeter hypodense lesions within the kidneys. These are to be too small to characterize but statistically represent cysts. No hydronephrosis. The main portal vein is patent. Normal caliber abdominal aorta. No retroperitoneal lymphadenopathy. There is a left circum aortic renal vein. The bladder, uterus, bilateral adnexa are unremarkable. There is trace ascites not ed. There is diffuse moderate colonic wall thickening most pronounced within the descending colon. Th ere is extrapleural gas at the descending colon consistent with a contained perforation. No loculated fluid collections at this time to suggest an abscess. No dilated loops of bowel to suggest an obstru ction. IMPRESSION: 1. Moderate diffuse thickening of the colonic wall consistent with a pancolitis. There is extralumina l gas of the descending colon consistent with a contained perforation. Therefore, ischemic colitis wo uld be the diagnosis of exclusion. Urgent surgical consultation recommended. 2. Trace ascites. 3. No evidence for bowel obstruction. 4. Interval development of multiple compression deformities within the lower thoracic and lumbar spin e. These are age-indeterminate but likely chronic. ACT 112: Negative or not required by law. Electronically signed by: Cameron Gonzalez M.D. 03/15/2022 11:04 AM
[2022-03-15] MEDS ORDERED: CIPROFLOXACIN / D5W 400 MG/200 ML BAG IV STA (11:26)
[2022-03-15] MEDS ORDERED: POTASSIUM CHLORIDE / WTR 10 MEQ/100 ML PLCT IV ONE (11:26)
[2022-03-15] MEDS ORDERED: metroNIDAZOLE 500 MG/100 ML BAG IV STA (11:26)
[2022-03-15] MEDS ORDERED: CEFEPIME 2,000 MG in SYRINGE 0 ML IV STA (11:42)
--- NOTE | 2022-03-15 11:47 | History & Physical Report ---
Date of Service March 15, 2022 Assessment & Plan (1) Pancolitis: Plan: - 3 months of chronic nonbloody diarrhea w/ acute, diffuse abdominal cramping, n/v, BRBPR last night and into this morning. - WBC 14 w/ left shift, lactate 3.3, ESR 30, CRP pending. - CT A/P: Moderate diffuse thickening of the colonic wall consistent with a pancolitis. There is extraluminal gas of the descending colon consistent with a contained perforation. Therefore, ischemic colitis would be the diagnosis of exclusion. Urgent surgical consultation recommended. - Neg for c dif as outpatient 12/28 - General surgery consulted, appreciate recommendations and assistance with this patient. Patient seen in ED. For now abdomen is nonsurgical, recommending abx for contained perf/suspected c diff, NPO w/ IVF. - Will also consult GI concerning chronic diarrhea, pancolitis thought to be due to a c diff infection. - Stool studies pending. - Will trend lactate, is initially elevated to 3.3 concerning given possibility of ischemic colitis but may be in the setting of dehydration, n/v/d. - LR 1000 cc bolus in ED; continue LRs @ 125 cc/hr on floor. - Vancomycin for possible c diff while awaiting stool studies; cefepime and Flagyl for perforation. (2) Mitral valve prolapse: Plan: - s/p MV replacement with annuloplasty ring and tricuspid valve annuloplasty in November - Complicated by brief atrial fibrillation in cardiogenic shock requiring ECMO and nitrous oxide for support. - No longer on rate/rhythm control or AC for a fib. - Placed on triamterene/HCTZ for concerns of RV failure, to continue for 2 years. - Doing well per recent cardiology note 02/18 - Continue metoprolol, have converted PO to IV while NPO. (3) Hypokalemia: Plan: - 2.8, IV repletion, recheck in AM. (4) Osteoporosis: Plan: - Prolia injections q6 months. (5) GERD (gastroesophageal reflux disease): Plan: - Continue PPI, switch lansoprazole to Protonix per hospital formulary, ordered IV while NPO. - Isolated hx of duodenal ulcerr at 9 years old, no surgery, no recurrent issues. Plan - Admit to PCU. - SCDs, Lovenox for VTE ppx. - Full Code. History of Present Illness Chief Complaint: Abdominal pain, rectal bleeding x1 day Primary Care Provider: Chelsea Gonzalez MD Aline Liu is a 66-year-old female with past medical history significant for MVP s/p repair in November, post-op a fib (no longer on tx), and 3 months of diarrhea who is presenting today with onset of acute abdominal pain and rectal bleeding overnight. Patient has been dealing with chronic diarrhea and abdominal bloating for the past 3 months after coming off Bactrim in December for UTI and antibiotics during mitral valve repair in November. She was testes for c diff in December, was negative then. Her symptoms have persistent now into March, reportig 3-4 episodes of diarrhea most days, but sometimes has a day without any. Last night around 2 in the morning, patient woke up with severe abdominal cramping throughout her lower abdomen with profuse, bloody bowel movements throughout the night. She has also been nauseated and vomiting several times from the pain. No recent fever/chills, melena, hematemesis. No history of c dif. Had a duodenal ulcer at 9 years old, no surgery required, attributed to "Stress", no recurrent history of PUD. On presentation, patient has been tachycardic to [id number], otherwise vital signs within normal limits. Labs notable for WBC of 14 with left shift, potassium 2.8, lactate 3.3 with AG 17. Creatinine 1.08, baseline <0.90. T bili minimally elevated at 1.1. UA with 2030 epithelial cells, 4+ bacteria, 1+ protein, ketones, blood. CT A/P shows moderate diffuse thickening of the colonic wall consistent with pancolitis, with extraluminal gas of the descending colon consistent with contained perforation, making ischemic colitis diagnosis of exclusion. There is trace ascites, no evidence of bowel obstruction. Interval development of multiple compression deformities within the lower thoracic and lumbar spine, age-indeterminate but likely chronic Allergies Allergy/AdvReac Type Severity Reaction Status Date / Time latex Allergy Intermediate Hives-ON Verified 03/15/22 12:46 OCC WITH GLOVES, BLOWING BALLOONS amoxicillin [From Augmentin] Allergy Unknown Rash Verified 03/15/22 12:46 clavulanic acid Allergy Unknown Rash Verified 03/15/22 12:46 [From Augmentin] nitrofurantoin Allergy Unknown Rash, Verified 03/15/22 12:46 [From Macrobid] nausea hazelnut AdvReac Intermediate ASTHMATIC Verified 03/15/22 12:46 SYMPTOMS prochlorperazine AdvReac Unknown Unconscious Unverified 03/14/22 13:06 [From Compazine] DRIED FRUITS AdvReac Intermediate ASTHMATIC Uncoded 03/15/22 12:46 SYMPTOMS Home Medications Medication Instructions Recorded Confirmed Type azelastine 137 mcg (0.1 %) nasal 2 spray intranasal DAILY PRN 08/28/20 03/15/22 History spray aerosol Allergy Symptoms fluticasone propionate 50 2 spray intranasal DAILY PRN nasal 03/08/21 03/15/22 Rx mcg/actuation nasal congestion #15.8 mL spray,suspension aspirin 81 mg chewable tablet 81 mg PO DAILY 12/15/21 03/15/22 History metoprolol succinate 25 mg 12.5 mg PO BID #90 tabs 12/20/21 03/15/22 Rx tablet,extended release 24 hr lansoprazole 15 mg capsule,delayed 15 mg PO DAILY #30 caps 02/08/22 03/15/22 Rx release triamterene 37.5 1 tab PO DAILY #90 tabs 03/14/22 03/15/22 Rx mg-hydrochlorothiazide 25 mg tablet (Maxzide-25mg) denosumab 60 mg/mL subcutaneous 0 mg subcut .Q6MOS 03/15/22 03/15/22 History syringe (Prolia) Past Med/Surg History Medical History Adnexal cyst Left side- per NURSING ADMINISTRATOR u/s 08/10/20- "lesion stable to mildly decreased in size" Anxiety Dysfunction of eustachian tube GERD (gastroesophageal reflux disease) Heart palpitations 2017-F/U DR CARRILLO Mitral valve prolapse DR. GHAZAL CARRILLO Osteoporosis Sensorineural hearing loss (SNHL) of left ear with unrestricted hearing of right ear Stomach ulcer Urinary tract infection HX-"OVERACTIVE BLADDER" Surgical History History of cardiac cath NO STENTS-2017 [facility] History of colonoscopy 2014 History of dilation and curettage History of esophagogastroduodenoscopy (EGD) History of tooth extraction Status post fine needle aspiration (~1999) breast Family History Brother Family hx colonic polyps Aneurysm Father Heart disease Hyperlipidemia Myocardial infarction Hypertension Sister Hyperlipidemia Breast cancer, Onset Age: 36 Hypertension Mother Osteoporosis Family history of reaction to anesthesia SLOW TO WAKE UP Denies family history of Ovarian cancer Prostate cancer Colorectal cancer Social History Smoking Status: Never smoker Tobacco Type: Cigarettes Age Started Using Tobacco: 17; Age Quit Using Tobacco: 28; packs per day: 0.5; Second Hand Exposure: Yes (SPOUSE USED TO SMOKE); Hx Alcohol Use: Yes Alcohol type: wine Alcohol Intake Frequency: Monthly or Less Hx Substance Use: No Preferred Language: Slovak Communication Ability: Effective Visual Impairment: No Limitations Hearing Ability: Normal Oral Health Therapist Required: No Beliefs That Will Affect Care: None marital status: Current Living Situation: Alone Current Living Situation Comment: SON current occupational status: employed 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 How many Children do You have: 3 Feels Safe at Home: Yes Childhood Exposure to Second-Hand Smoke: No caffeine: Yes during the past year weight has: remained stable Dental Care, Regularly: Yes Physical Activity Frequency: 3-4 Times per Week Seatbelt Use: always Sunscreen Use: Yes Do you think of yourself as: straight/heterosexual Assistive Devices: None Review of Systems Review of Systems: Constitutional: No fever/chills, weakness, fatigue, myalgias, anorexia, night sweats Eyes: No diplopia, no worsening or blurred vision ENT: normal hearing, no trouble swallowing Respiratory: No cough, sputum, dyspnea at rest or on exertion Cardiovascular: No chest pain, tightness or palpitations Abdomen: Diffuse abdominal pain, nausea, vomiting, BRBPR x1 day : Denies dysuria, hematuria, increased urgency/frequency, urinary retention Musculoskeletal: No joint pain, calf pain, swelling Neurologic: No weakness, numbness/tingling, or balance problems Psychiatric: No anxiety or depression Skin: No rash or itch Physical Exam Physical Exam: General: awake, alert, no apparent distress Head: Normocephalic, atraumatic ENT: PERRL, EOMI, no pharyngeal exudate, mucous membranes moist Chest: Clear to auscultation, on room air, no adventitious breath sounds Cardiac: Regular rate and rhythm, no murmur, no JVD, normal peripheral pulses, good capillary refill Abdominal: mildly TTP with deep palpation; no rebound, or guarding, not very tender with light touch; NABS x 4 quadrants, soft Extremities: Normal inspection, no peripheral edema or erythema, calfs nontender to palpation Psych: Normal mood and affect Neuro: AAO x 3, strength intact bilaterally and rated 5/5, no motor deficits, speech is clear, no peripheral sensory deficits Skin: no rash or erythema Results & Data Results & Data ([facility]) Vital Signs (Past 12 Hours) Vital Signs Temp Pulse Pulse Resp BP BP Pulse Ox 03/15/22 11:00 115 H 16 113/73 99 03/15/22 10:30 110 H 19 95 03/15/22 10:00 118 H 15 94 03/15/22 10:00 140/91 03/15/22 09:20 112 H 24 03/15/22 09:10 114 H 11 L 100 03/15/22 09:00 113 H 14 100 03/15/22 09:00 131/91 03/15/22 08:50 107 H 16 98 03/15/22 08:40 110 H 30 H 94 03/15/22 08:30 113 H 22 94 03/15/22 08:30 135/96 03/15/22 08:20 116 H 15 100 03/15/22 08:14 134/94 03/15/22 08:14 117 H 15 99 03/15/22 08:10 121 H 19 98 03/15/22 08:09 124 H 25 H 98 03/15/22 08:09 123/106 H 03/15/22 08:06 120 H 22 03/15/22 07:51 37.1 C 119 H 18 127/83 100 O2 Del Method 03/15/22 11:00 03/15/22 10:30 03/15/22 10:00 03/15/22 10:00 03/15/22 09:20 03/15/22 09:10 03/15/22 09:00 03/15/22 09:00 03/15/22 08:50 03/15/22 08:40 03/15/22 08:30 03/15/22 08:30 03/15/22 08:20 03/15/22 08:14 03/15/22 08:14 03/15/22 08:10 03/15/22 08:09 03/15/22 08:09 03/15/22 08:06 03/15/22 07:51 Room Air Laboratory Results Abnormal lab results 03/15/22 03/15/22 03/15/22 Range/Units 08:07 08:07 11:40 WBC 14.10 H (4.8-10.8) K/ul Neut # (Auto) 13.24 H (1.4-6.5) K/uL Lymph # (Auto) 0.35 L (1.2-3.4) K/uL Immature Gran # (Auto) 0.07 H (0.00-0.02) K/uL Potassium 2.8 L (3.5-5.1) mmol/L Carbon Dioxide 19 L (21-32) mmol/L Anion Gap 17 H (3-11) BUN 26 H (6-23) mg/dl BUN/Creatinine Ratio 24.1 H (10-20) Glucose 197 H (70-99(Fasting)) mg/dl Lactate 3.3 H* (0.4-2.0) mmol/L Total Bilirubin 1.1 H (0.2-1.0) mg/dl Urine Appearance (Clear) Urine Protein (Negative) Urine Ketones (Negative) Urine Blood (Negative) U Epithel Cells (Auto) (0-5) /lpf Urine Bacteria (Auto) (Negative) 03/15/22 Range/Units Unknown WBC (4.8-10.8) K/ul Neut # (Auto) (1.4-6.5) K/uL Lymph # (Auto) (1.2-3.4) K/uL Immature Gran # (Auto) (0.00-0.02) K/uL Potassium (3.5-5.1) mmol/L Carbon Dioxide (21-32) mmol/L Anion Gap (3-11) BUN (6-23) mg/dl BUN/Creatinine Ratio (10-20) Glucose (70-99(Fasting)) mg/dl Lactate (0.4-2.0) mmol/L Total Bilirubin (0.2-1.0) mg/dl Urine Appearance Cloudy A (Clear) Urine Protein 1+ H (Negative) Urine Ketones 1+ H (Negative) Urine Blood 2+ H (Negative) U Epithel Cells (Auto) 20-30 H (0-5) /lpf Urine Bacteria (Auto) 4+ H (Negative) Diagnostic Findings Abdomen/Pelvis CT 03/15/22 08:[address] WITH IV CONTRAST CT DOSE: 277.57 mGycm HISTORY: Vomiting. Generalized abdominal pain TECHNIQUE: Multiaxial CT images of the abdomen and pelvis were performed following the use of intravenous contrast. A dose lowering technique was utilized adhering to the principles of ALARA. COMPARISON STUDY: Abdomen and pelvis CT 10/02/2021. FINDINGS: Groundglass densities at the lung bases favor mild dependent change. There are post sternotomy changes. Obrz-gk-xlemoaha compression deformities seen throughout the lumbar spine and T11 level which are new from the prior study. These are technically age indeterminate but likely chronic. Surgical clips seen within the right inguinal region. The liver, gallbladder, pancreas, and adrenal glands are unremarkable. There are few subcentimeter hypodense lesions within the kidneys. These are to be too small to characterize but statistically represent cysts. No hydronephrosis. The main portal vein is patent. Normal caliber abdominal aorta. No retroperitoneal lymphadenopathy. There is a left circumaortic renal vein. The bladder, uterus, bilateral adnexa are unremarkable. There is trace ascites noted. There is diffuse moderate colonic wall thickening most pronounced within the descending colon. There is extrapleural gas at the descending colon consistent with a contained perforation. No loculated fluid collections at this time to suggest an abscess. No dilated loops of bowel to suggest an obstruction. IMPRESSION: 1. Moderate diffuse thickening of the colonic wall consistent with a pancolitis. There is extraluminal gas of the descending colon consistent with a contained perforation. Therefore, ischemic colitis would be the diagnosis of exclusion. Urgent surgical consultation recommended. 2. Trace ascites. 3. No evidence for bowel obstruction. 4. Interval development of multiple compression deformities within the lower thoracic and lumbar spine. These are age-indeterminate but likely chronic. ACT 112: Negative or not required by law. Electronically signed by: Cameron Gonzalez M.D. 03/15/2022 11:04 AM Chest X-Ray 03/15/22 08:23 XR chest 1V portable CLINICAL HISTORY: chest pain, SOB TECHNIQUE: Single frontal radiograph of the chest was obtained. Comparison: Comparison is made to chest radiograph 03/07/2022 FINDINGS: Median sternotomy wires are unchanged. The cardiomediastinal silhouette is stable. Valvular prosthesis is seen. The lungs are clear. No evidence of pleural effusion or pneumothorax. IMPRESSION: No acute abnormalities and in particular no evidence of pneumonia. ACT 112: Negative or not required by law. Electronically signed by: Juarez Granger M.D. 03/15/2022 9:17 AM Code Status & VTE Plan Code Status Full Code. Supervising Physician Co-Signing Physician Notes I personally saw and examined the patient. I verified all su points and agree with Elizabeth Nelson PA-C with the following exceptions and/or additions: 66 year old female presents with 3 months diarrhea, watery and newer onset abdominal pain. Pancolitis with contained perforation on CT. O/E HS1+2, no murmurs, Chest CTAB, Abdo generalized tenderness with guarding and rebound tenderness A/P Pancolitis with contained perforation - IV antibiotics (high risk therefore cefepime + metronidazole), IV fluids, NPO, Consult general surgery. Given watery diarrhea following antibiotics will start PO vancomycin 500mg q6h pending c. diff testing Sepsis - LR 3L bolus. Lactate 3.3 -> 2.3 causing mild metabolic acidosis Otherwise as above PG Care Time/CCT Total # of Minutes Spent Total Time Spent with Patient: Total time spent is greater than 50% in coordination of care (as documented) at patient's floor/unit and/or counseling patient: Coding Level of Care Code 77624 INT INP/OBS CARE 3/75MIN Diagnoses Pancolitis K51.00 Mitral valve prolapse I34.1 Hypokalemia E87.6 Osteoporosis M81.0 GERD (gastroesophageal reflux disease) K21.9
[2022-03-15] MEDS ORDERED: RASPBERRY SYRUP 5 ML UDP PO ONE (12:00)
[2022-03-15] MEDS ORDERED: VANCOMYCIN HCL 500 MG/10 ML SOLN PO ONE (12:00)
[2022-03-15] MEDS ORDERED: CEFEPIME 20 ML IV STA (12:22)
[2022-03-15] MEDS ORDERED: LACTATED RINGER'S 1,000 ML IV ONE ×3 (12:31→17:39)
--- NOTE | 2022-03-15 13:09 | Surgery Consultation ---
Date of Consultation March 15, 2022 Assessment & Plan (1) Pancolitis: (2) Diarrhea: Plan 66 year-old female s/p Mitral valve repair at [place] in October 2021 with postoperative a-fib and complications requiring multiple antibiotics and ECMO and UTI in December treated with bactrim now presents to the ED with 3 month history of diarrhea and sudden onset of abdominal pain, bloody diarrhea, and nausea and vomiting. CT scan of abd/pelvis showing pancolitis with contained perforation of the descending colon. Tachycardia otherwise hemodynamically stable, leukocytosis of 14,000 and lactic acid 3.3. Abdominal exam without peritonitis , rigidity, or rebound tenderness. Plan: Discussed with patient and her daughter her imaging findings showing pancolitis with contained perforation. As her abdominal examination is without peritonitis, discussed conservative management with IV fluids, NPO for bowel rest, pain management as needed, IV antibiotics for the contained perforation. Possibly pancolitis related to c.diff given history of multiple antibiotics however unable to obtain stool culture at this time. Will treat with vancomycin. Discussed with patient and her daughter that we would like to avoid any surgical intervention unless absolutely necessary as this would require subtotal colectomy and temporary colostomy. Will need GI consultation Will likely need colonoscopy once out of this acute phase for further evaluation Continue current medical management She will need to follow-up with her cardiology team and cardiac surgeon regarding prophylactic antibiotic use given Mitral valve repair especially if c. diff positive. will continue to closely follow Dr. Sesay has seen and examined pt, see addendum for further recommendations/plan. History of Present Illness Reason for Consultation: Pancolitis, contained microperforation History of Present Illness Aline is a 66 year-old female with history of Mitral valve replacement in [facility] in 2021 with complications requiring ECMO for 3 weeks and diarrhea since December with history of multiple antibiotics presented to ED today with complaint of diarrhea, rectal bleeding, abdominal pain, and nausea and vomiting that started last evening. She states she has had diarrhea since being treated with Bactrim for UTI in December. Tested for C. diff in early January which was negative. States since then she has had intermittent issues with increased bloating and flatus and some abdominal tenderness but no severe pain. States she suddenly noticed abdominal pain with rectal bleeding and associated nausea and vomiting that started last evening. Worried she had a bleeding ulcer. History of ulcer when she was in 3rd grade. No recent antibiotics. CT scan showing pancolitis with contained microperforation in the descending colon. Leukocytosis of 14,000 and lactate elevated at 3.3. She states she takes 81 mg of Aspirin since her heart valve surgery but no other blood thinning agents. No history of blood clots. Allergies Allergy/AdvReac Type Severity Reaction Status Date / Time latex Allergy Intermediate Hives-ON Verified 03/15/22 12:46 OCC WITH GLOVES, BLOWING BALLOONS amoxicillin [From Augmentin] Allergy Unknown Rash Verified 03/15/22 12:46 clavulanic acid Allergy Unknown Rash Verified 03/15/22 12:46 [From Augmentin] nitrofurantoin Allergy Unknown Rash, Verified 03/15/22 12:46 [From Macrobid] nausea hazelnut AdvReac Intermediate ASTHMATIC Verified 03/15/22 12:46 SYMPTOMS prochlorperazine AdvReac Unknown Unconscious Unverified 03/14/22 13:06 [From Compazine] DRIED FRUITS AdvReac Intermediate ASTHMATIC Uncoded 03/15/22 12:46 SYMPTOMS Home Medications Medication Instructions Recorded Confirmed Type azelastine 137 mcg (0.1 %) nasal 2 spray intranasal DAILY PRN 08/28/20 03/15/22 History spray aerosol Allergy Symptoms fluticasone propionate 50 2 spray intranasal DAILY PRN nasal 03/08/21 03/15/22 Rx mcg/actuation nasal congestion #15.8 mL spray,suspension aspirin 81 mg chewable tablet 81 mg PO DAILY 12/15/21 03/15/22 History metoprolol succinate 25 mg 12.5 mg PO BID #90 tabs 12/20/21 03/15/22 Rx tablet,extended release 24 hr lansoprazole 15 mg capsule,delayed 15 mg PO DAILY #30 caps 02/08/22 03/15/22 Rx release triamterene 37.5 1 tab PO DAILY #90 tabs 03/14/22 03/15/22 Rx mg-hydrochlorothiazide 25 mg tablet (Maxzide-25mg) denosumab 60 mg/mL subcutaneous 0 mg subcut .Q6MOS 03/15/22 03/15/22 History syringe (Prolia) Patient History Medical History Adnexal cyst Left side- per [facility] u/s 08/10/20- "lesion stable to mildly decreased in size" Anxiety Dysfunction of eustachian tube GERD (gastroesophageal reflux disease) Heart palpitations 2017-F/U DR CARRILLO Mitral valve prolapse DR. GHAZAL CARRILLO Osteoporosis Sensorineural hearing loss (SNHL) of left ear with unrestricted hearing of right ear Stomach ulcer Urinary tract infection HX-"OVERACTIVE BLADDER" Surgical History History of cardiac cath NO STENTS-2016 [facility] History of colonoscopy 2014 History of dilation and curettage History of esophagogastroduodenoscopy (EGD) History of tooth extraction Status post fine needle aspiration (~2000) breast Family History Brother Family hx colonic polyps Aneurysm Father Heart disease Hyperlipidemia Myocardial infarction Hypertension Sister Hyperlipidemia Breast cancer, Onset Age: 36 Hypertension Mother Osteoporosis Family history of reaction to anesthesia SLOW TO WAKE UP Denies family history of Ovarian cancer Prostate cancer Colorectal cancer Social History Smoking Status: Never smoker Tobacco Type: Cigarettes Age Started Using Tobacco: 17; Age Quit Using Tobacco: 28; packs per day: 0.5; Second Hand Exposure: Yes (SPOUSE USED TO SMOKE); Hx Alcohol Use: Yes Alcohol type: wine Alcohol Intake Frequency: Monthly or Less Hx Substance Use: No Preferred Language: Sami Communication Ability: Effective Visual Impairment: No Limitations Hearing Ability: Normal [place] And Recausticizing Operator Required: No Beliefs That Will Affect Care: None marital status: Current Living Situation: Alone Current Living Situation Comment: SON current occupational status: employed 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 How many Children do You have: 3 Feels Safe at Home: Yes Childhood Exposure to Second-Hand Smoke: No caffeine: Yes during the past year weight has: remained stable Dental Care, Regularly: Yes Physical Activity Frequency: 3-4 Times per Week Seatbelt Use: always Sunscreen Use: Yes Do you think of yourself as: straight/heterosexual Assistive Devices: Denture - Upper and Glasses Physical Exam Constitutional: WD/WN, vitals as above average body habitus, cooperative, comfortable and + lethargic; no acute distress Neck: normal visual inspection and trachea midline Respiratory: normal respiratory effort, lungs clear to auscultation Cardiovascular: Rate/Rhythm: regular rhythm and + tachycardic Heart Sounds: normal S1 and normal S2 Gastrointestinal (Abdomen): Inspection/Auscultation: abdomen normal to inspection and + hypoactive bowel sounds; abdomen not distended and + abnormal bowel sounds Percussion/Palpation: + abdomen tender (LLQ on deep palpation), + guarding (voluntary of LLQ) and abdomen soft; abdomen not rigid and abdomen not firm No peritonitis or rigidity or rebound Skin: no rashes, warm and dry no jaundice Psychiatric: A+Ox3, euthymic affect Results & Data ([facility]) Vital Signs (Past 12 Hours) Vital Signs Temp Pulse Pulse Resp BP BP Pulse Ox 03/15/22 11:00 115 H 16 113/73 99 03/15/22 10:30 110 H 19 95 03/15/22 10:00 118 H 15 94 03/15/22 10:00 140/91 03/15/22 09:20 112 H 24 03/15/22 09:10 114 H 11 L 100 03/15/22 09:00 113 H 14 100 03/15/22 09:00 131/91 03/15/22 08:50 107 H 16 98 03/15/22 08:40 110 H 30 H 94 03/15/22 08:30 113 H 22 94 03/15/22 08:30 135/96 03/15/22 08:20 116 H 15 100 03/15/22 08:14 134/94 03/15/22 08:14 117 H 15 99 03/15/22 08:10 121 H 19 98 03/15/22 08:09 124 H 25 H 98 03/15/22 08:09 123/106 H 03/15/22 08:06 120 H 22 03/15/22 07:51 37.1 C 119 H 18 127/83 100 O2 Del Method 03/15/22 11:00 03/15/22 10:30 03/15/22 10:00 03/15/22 10:00 03/15/22 09:20 03/15/22 09:10 03/15/22 09:00 03/15/22 09:00 03/15/22 08:50 03/15/22 08:40 03/15/22 08:30 03/15/22 08:30 03/15/22 08:20 03/15/22 08:14 03/15/22 08:14 03/15/22 08:10 03/15/22 08:09 03/15/22 08:09 03/15/22 08:06 03/15/22 07:51 Room Air Laboratory Results 03/15/22 03/15/22 03/15/22 Range/Units Unknown Unknown 14:26 WBC (4.8-10.8) K/ul RBC (3.93-5.22) M/uL Hgb (12.0-16.0) g/dl Hct (34.1-44.9) % MCV (80.0-100.0) fL MCH (25.0-34.0) pg MCHC (32.0-36.0) g/dL RDW Std Deviation (36.4-46.3) fL RDW Coeff of Ruchi (11.5-14.5) % Plt Count (130-400) K/uL MPV (9.4-12.3) fL Immature Gran % (Auto) % Neut % (Auto) % Lymph % (Auto) % Stephenson % (Auto) % Eos % (Auto) % Baso % (Auto) % Neut # (Auto) (1.4-6.5) K/uL Lymph # (Auto) (1.2-3.4) K/uL Stephenson # (Auto) (0.24-0.82) K/uL Eos # (Auto) (0-0.50) K/uL Baso # (Auto) (0-0.2) K/uL Immature Gran # (Auto) (0.00-0.02) K/uL Echinocytes ESR (0-30) mm/hr Sodium (136-145) mmol/L Potassium (3.5-5.1) mmol/L Chloride (98-107) mmol/L Carbon Dioxide (21-32) mmol/L Anion Gap (3-11) BUN (6-23) mg/dl Creatinine (0.6-1.2) mg/dl Est Cr Clr Drug Dosing ml/min Est GFR ( Amer) ml/min Est GFR (Non-Af Amer) ml/min BUN/Creatinine Ratio (10-20) Glucose (70-99(Fasting)) mg/dl Lactate 2.3 H* (0.4-2.0) mmol/L Calcium (8.5-10.1) mg/dl Magnesium (1.7-2.4) mg/dl Total Bilirubin (0.2-1.0) mg/dl AST (13-39) U/L ALT (7-52) U/L Alkaline Phosphatase (34-104) U/L Troponin I High Sens (0-14) pg/ml C-Reactive Protein (0-0.5) mg/dl Total Protein (6.0-8.3) gm/dl Albumin (3.4-5.0) gm/dl Globulin (2.5-4.0) gm/dl Albumin/Globulin Ratio (0.9-2) Lipase (11-82) U/L Urine Color Yellow Urine Appearance Cloudy A (Clear) Urine pH 6.5 (4.5-7.5) Ur Specific [place] 1.017 (1.000-1.030) Urine Protein 1+ H (Negative) Urine Glucose (UA) Negative (Negative) Urine Ketones 1+ H (Negative) Urine Blood 2+ H (Negative) Urine Nitrite Negative (Negative) Urine Bilirubin Negative (Negative) Urine Urobilinogen Negative (Negative) Ur Leukocyte Esterase Negative (Negative) Urine WBC (Auto) 1-5 (0-5) /hpf Urine RBC (Auto) 0-4 (0-4) /hpf U Hyaline Cast (Auto) 1-5 (0-5) /lpf U Epithel Cells (Auto) 20-30 H (0-5) /lpf Urine Bacteria (Auto) 4+ H (Negative) SARS-CoV-2, RNA, NAAT NEGATIVE (NEGATIVE) Blood Type Antibody Screen 03/15/22 03/15/22 03/15/22 Range/Units 11:40 08:07 08:07 WBC (4.8-10.8) K/ul RBC (3.93-5.22) M/uL Hgb (12.0-16.0) g/dl Hct (34.1-44.9) % MCV (80.0-100.0) fL MCH (25.0-34.0) pg MCHC (32.0-36.0) g/dL RDW Std Deviation (36.4-46.3) fL RDW Coeff of Ruchi (11.5-14.5) % Plt Count (130-400) K/uL MPV (9.4-12.3) fL Immature Gran % (Auto) % Neut % (Auto) % Lymph % (Auto) % Stephenson % (Auto) % Eos % (Auto) % Baso % (Auto) % Neut # (Auto) (1.4-6.5) K/uL Lymph # (Auto) (1.2-3.4) K/uL Stephenson # (Auto) (0.24-0.82) K/uL Eos # (Auto) (0-0.50) K/uL Baso # (Auto) (0-0.2) K/uL Immature Gran # (Auto) (0.00-0.02) K/uL Echinocytes ESR 30 (0-30) mm/hr Sodium (136-145) mmol/L Potassium (3.5-5.1) mmol/L Chloride (98-107) mmol/L Carbon Dioxide (21-32) mmol/L Anion Gap (3-11) BUN (6-23) mg/dl Creatinine (0.6-1.2) mg/dl Est Cr Clr Drug Dosing ml/min Est GFR ( Amer) ml/min Est GFR (Non-Af Amer) ml/min BUN/Creatinine Ratio (10-20) Glucose (70-99(Fasting)) mg/dl Lactate 3.3 H* (0.4-2.0) mmol/L Calcium (8.5-10.1) mg/dl Magnesium (1.7-2.4) mg/dl Total Bilirubin (0.2-1.0) mg/dl AST (13-39) U/L ALT (7-52) U/L Alkaline Phosphatase (34-104) U/L Troponin I High Sens (0-14) pg/ml C-Reactive Protein < 0.50 (0-0.5) mg/dl Total Protein (6.0-8.3) gm/dl Albumin (3.4-5.0) gm/dl Globulin (2.5-4.0) gm/dl Albumin/Globulin Ratio (0.9-2) Lipase (11-82) U/L Urine Color Urine Appearance (Clear) Urine pH (4.5-7.5) Ur Specific [place] (1.000-1.030) Urine Protein (Negative) Urine Glucose (UA) (Negative) Urine Ketones (Negative) Urine Blood (Negative) Urine Nitrite (Negative) Urine Bilirubin (Negative) Urine Urobilinogen (Negative) Ur Leukocyte Esterase (Negative) Urine WBC (Auto) (0-5) /hpf Urine RBC (Auto) (0-4) /hpf U Hyaline Cast (Auto) (0-5) /lpf U Epithel Cells (Auto) (0-5) /lpf Urine Bacteria (Auto) (Negative) SARS-CoV-2, RNA, NAAT (NEGATIVE) Blood Type Antibody Screen 03/15/22 03/15/22 03/15/22 Range/Units 08:07 08:07 08:07 WBC 14.10 H (4.8-10.8) K/ul RBC 4.48 (3.93-5.22) M/uL Hgb 13.5 (12.0-16.0) g/dl Hct 39.4 (34.1-44.9) % MCV 87.9 (80.0-100.0) fL MCH 30.1 (25.0-34.0) pg MCHC 34.3 (32.0-36.0) g/dL RDW Std Deviation 38.5 (36.4-46.3) fL RDW Coeff of Ruchi 11.9 (11.5-14.5) % Plt Count 317 (130-400) K/uL MPV 9.5 (9.4-12.3) fL Immature Gran % (Auto) 0.5 % Neut % (Auto) 93.9 % Lymph % (Auto) 2.5 % Stephenson % (Auto) 2.8 % Eos % (Auto) 0.0 % Baso % (Auto) 0.3 % Neut # (Auto) 13.24 H (1.4-6.5) K/uL Lymph # (Auto) 0.35 L (1.2-3.4) K/uL Stephenson # (Auto) 0.40 (0.24-0.82) K/uL Eos # (Auto) 0.00 (0-0.50) K/uL Baso # (Auto) 0.04 (0-0.2) K/uL Immature Gran # (Auto) 0.07 H (0.00-0.02) K/uL Echinocytes 1+ ESR (0-30) mm/hr Sodium 142 (136-145) mmol/L Potassium 2.8 L (3.5-5.1) mmol/L Chloride 106 (98-107) mmol/L Carbon Dioxide 19 L (21-32) mmol/L Anion Gap 17 H (3-11) BUN 26 H (6-23) mg/dl Creatinine 1.08 (0.6-1.2) mg/dl Est Cr Clr Drug Dosing 38.9 ml/min Est GFR ( Amer) 62.4 ml/min Est GFR (Non-Af Amer) 53.8 ml/min BUN/Creatinine Ratio 24.1 H (10-20) Glucose 197 H (70-99(Fasting)) mg/dl Lactate (0.4-2.0) mmol/L Calcium 9.9 (8.5-10.1) mg/dl Magnesium 1.8 (1.7-2.4) mg/dl Total Bilirubin 1.1 H (0.2-1.0) mg/dl AST 26 (13-39) U/L ALT 12 (7-52) U/L Alkaline Phosphatase 64 (34-104) U/L Troponin I High Sens 7.4 (0-14) pg/ml C-Reactive Protein (0-0.5) mg/dl Total Protein 7.2 (6.0-8.3) gm/dl Albumin 4.0 (3.4-5.0) gm/dl Globulin 3.2 (2.5-4.0) gm/dl Albumin/Globulin Ratio 1.3 (0.9-2) Lipase 41 (11-82) U/L Urine Color Urine Appearance (Clear) Urine pH (4.5-7.5) Ur Specific [place] (1.000-1.030) Urine Protein (Negative) Urine Glucose (UA) (Negative) Urine Ketones (Negative) Urine Blood (Negative) Urine Nitrite (Negative) Urine Bilirubin (Negative) Urine Urobilinogen (Negative) Ur Leukocyte Esterase (Negative) Urine WBC (Auto) (0-5) /hpf Urine RBC (Auto) (0-4) /hpf U Hyaline Cast (Auto) (0-5) /lpf U Epithel Cells (Auto) (0-5) /lpf Urine Bacteria (Auto) (Negative) SARS-CoV-2, RNA, NAAT (NEGATIVE) Blood Type Antibody Screen 03/15/22 Range/Units 08:07 WBC (4.8-10.8) K/ul RBC (3.93-5.22) M/uL Hgb (12.0-16.0) g/dl Hct (34.1-44.9) % MCV (80.0-100.0) fL MCH (25.0-34.0) pg MCHC (32.0-36.0) g/dL RDW Std Deviation (36.4-46.3) fL RDW Coeff of Ruchi (11.5-14.5) % Plt Count (130-400) K/uL MPV (9.4-12.3) fL Immature Gran % (Auto) % Neut % (Auto) % Lymph % (Auto) % Stephenson % (Auto) % Eos % (Auto) % Baso % (Auto) % Neut # (Auto) (1.4-6.5) K/uL Lymph # (Auto) (1.2-3.4) K/uL Stephenson # (Auto) (0.24-0.82) K/uL Eos # (Auto) (0-0.50) K/uL Baso # (Auto) (0-0.2) K/uL Immature Gran # (Auto) (0.00-0.02) K/uL Echinocytes ESR (0-30) mm/hr Sodium (136-145) mmol/L Potassium (3.5-5.1) mmol/L Chloride (98-107) mmol/L Carbon Dioxide (21-32) mmol/L Anion Gap (3-11) BUN (6-23) mg/dl Creatinine (0.6-1.2) mg/dl Est Cr Clr Drug Dosing ml/min Est GFR ( Amer) ml/min Est GFR (Non-Af Amer) ml/min BUN/Creatinine Ratio (10-20) Glucose (70-99(Fasting)) mg/dl Lactate (0.4-2.0) mmol/L Calcium (8.5-10.1) mg/dl Magnesium (1.7-2.4) mg/dl Total Bilirubin (0.2-1.0) mg/dl AST (13-39) U/L ALT (7-52) U/L Alkaline Phosphatase (34-104) U/L Troponin I High Sens (0-14) pg/ml C-Reactive Protein (0-0.5) mg/dl Total Protein (6.0-8.3) gm/dl Albumin (3.4-5.0) gm/dl Globulin (2.5-4.0) gm/dl Albumin/Globulin Ratio (0.9-2) Lipase (11-82) U/L Urine Color Urine Appearance (Clear) Urine pH (4.5-7.5) Ur Specific [place] (1.000-1.030) Urine Protein (Negative) Urine Glucose (UA) (Negative) Urine Ketones (Negative) Urine Blood (Negative) Urine Nitrite (Negative) Urine Bilirubin (Negative) Urine Urobilinogen (Negative) Ur Leukocyte Esterase (Negative) Urine WBC (Auto) (0-5) /hpf Urine RBC (Auto) (0-4) /hpf U Hyaline Cast (Auto) (0-5) /lpf U Epithel Cells (Auto) (0-5) /lpf Urine Bacteria (Auto) (Negative) SARS-CoV-2, RNA, NAAT (NEGATIVE) Blood Type O Positive Antibody Screen NEGATIVE Diagnostic Findings ABDOMEN AND PELVIS CT WITH IV CONTRAST CT DOSE: 277.57 mGycm HISTORY: Vomiting. Generalized abdominal pain TECHNIQUE: Multiaxial CT images of the abdomen and pelvis were performed following the use of intravenous contrast. A dose lowering technique was utilized adhering to the principles of ALARA. COMPARISON STUDY: Abdomen and pelvis CT 10/02/2021. FINDINGS: Groundglass densities at the lung bases favor mild dependent change. There are post sternotomy changes. [id number] compression deformities seen throughout the lumbar spine and T11 level which are new from the prior study. These are technically age indeterminate but likely chronic. Surgical clips seen within the right inguinal region. The liver, gallbladder, pancreas, and adrenal glands are unremarkable. There are few subcentimeter hypodense lesions within the kidneys. These are to be too small to characterize but statistically represent cysts. No hydronephrosis. The main portal vein is patent. Normal caliber abdominal aorta. No retroperitoneal lymphadenopathy. There is a left circumaortic renal vein. The bladder, uterus, bilateral adnexa are unremarkable. There is trace ascites noted. There is diffuse moderate colonic wall thickening most pronounced within the descending colon. There is extrapleural gas at the descending colon consistent with a contained perforation. No loculated fluid collections at this time to suggest an abscess. No dilated loops of bowel to suggest an obstruction. IMPRESSION: 1. Moderate diffuse thickening of the colonic wall consistent with a pancolitis. There is extraluminal gas of the descending colon consistent with a contained perforation. Therefore, ischemic colitis would be the diagnosis of exclusion. Urgent surgical consultation recommended. 2. Trace ascites. 3. No evidence for bowel obstruction. 4. Interval development of multiple compression deformities within the lower thoracic and lumbar spine. These are age-indeterminate but likely chronic.
[2022-03-15] MEDS: POTASSIUM CHLORIDE / WTR 10 MEQ/100 ML PLCT IV SCH ×2 (14:24→15:36)
[2022-03-15] MEDS ORDERED: AZELASTINE HCL 0.1% NASAL 200 SPRAYS/27,400 MCG BTL NAE PRN (16:15)
[2022-03-15] MEDS ORDERED: FLUTICASONE PROPIONATE NA SPR 16 GM BTL PRN (16:15)
[2022-03-15] MEDS: LACTATED RINGER'S 1,000 ML IV SCH ×2 (16:43→21:30)
[2022-03-15] MEDS: RASPBERRY SYRUP 5 ML UDP PO SCH ×2 (17:09→23:52)
[2022-03-15] MEDS: VANCOMYCIN HCL 500 MG/10 ML SOLN PO SCH ×2 (17:10→23:52)
[2022-03-15] MEDS ORDERED: RASPBERRY SYRUP 5 ML UDP PO SCH (18:00)
[2022-03-15] MEDS ORDERED: METOPROLOL TARTRATE 1 MG/ML VIAL IV SCH ×2 (18:00→21:00)
[2022-03-15 18:55] LABS: BUN Creatinine Ratio 26.6 (10-20); Calcium 8.3 mg/dl (8.5-10.1); Creatinine Clr Calc Pharmacy 53.2 ml/min; Est GFR (Non-African American) 78.6 ml/min; Potassium 3.9 mmol/L (3.5-5.1)
[2022-03-15] MEDS ORDERED: METOPROLOL SUCC 25MG EXT REL TAB PO SCH (21:00)
[2022-03-15] MEDS: HEPARIN SOD 5,000 UNIT/0.5 ML VIAL SQ SCH (21:15)
[2022-03-15] MEDS: metroNIDAZOLE 500 MG/100 ML BAG IV SCH (21:15)
[2022-03-15] MEDS: ACETAMINOPHEN 1000 MG/100 ML IV IV SCH (23:32)
[2022-03-15] MEDS: CEFEPIME 1,000 MG in SYRINGE 0 ML IV SCH (23:52)
[2022-03-16] MEDS: RASPBERRY SYRUP 5 ML UDP PO SCH (05:34)
[2022-03-16] MEDS: metroNIDAZOLE 500 MG/100 ML BAG IV SCH ×3 (05:34→21:11)
[2022-03-16] MEDS: VANCOMYCIN HCL 500 MG/10 ML SOLN PO SCH (05:34)
[2022-03-16] MEDS: ACETAMINOPHEN 1000 MG/100 ML IV IV SCH ×2 (05:36→13:03)
--- NOTE | 2022-03-16 07:18 | Hospitalist Progress Note ---
Date of Service March 16, 2022 Assessment & Plan (1) Pancolitis: (2) Diarrhea: (3) Rectal bleeding: (4) Hypokalemia: Plan #Sepsis in the setting of pancolitis with colon perforation #Pancolitis - 3 months of chronic nonbloody diarrhea w/ acute, diffuse abdominal cramping, n/v, BRBPR at home on 03/14 and then on 03/15 morning. - WBC 12, lactate 2.3, ESR 30, CRP normal - CT A/P on 03/15: Moderate diffuse thickening of the colonic wall consistent with a pancolitis. There is extraluminal gas of the descending colon consistent with a contained perforation. Therefore, ischemic colitis would be the diagnosis of exclusion. - Neg for c dif as outpatient 12/28 - C diff and Stool studies negative on 03/15. Waiting on final results on stool culture. - Will trend lactate, is initially elevated to 3.3 concerning given possibility of ischemic colitis but may be in the setting of dehydration, n/v/d. - LR 1000 cc bolus in ED; continue LRs @ 75 cc/hr - Oral Vancomycin was started in the ED for possible c diff. D/C due to negative C diff testing on 03/15. - Will continue on cefepime and Flagyl for perforation. Cefepime increased to 2mg BID. - General surgery consulted, recommending continuing abx, fluids, and to continue with bowel rest. No surgical intervention needed at this time. - Consult GI concerning chronic diarrhea, pancolitis #GIB -possibly sec to ischemic colitis -Patient c/o 2 episodes of blood on her stool. -Nursing notes blood in her stool on the morning of 03/16. -Hemoglobin 13.5 on 03/15, 8.8 on AM labs on 03/16. -Patient is type and crossed and consented. Consent form filled out. -Continue H&H Q6H -Threshold for transfusion is 7. -GI and surgery on board. #Mitral valve prolapse - s/p MV replacement with annuloplasty ring and tricuspid valve annuloplasty in November - Complicated by brief atrial fibrillation in cardiogenic shock requiring ECMO and nitrous oxide for support. - No longer on rate/rhythm control or AC for a fib. 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 - Doing well per recent cardiology note 02/18 - Continue metoprolol, have converted PO to IV while NPO. #Hypokalemia - IV repletion in ED, 3.2 this AM. Will continue to monitor in AM labs. #Osteoporosis - Prolia injections q6 months. #GERD (gastroesophageal reflux disease) - Continue PPI, switch lansoprazole to Protonix per hospital formulary, ordered IV while NPO. - Isolated hx of duodenal ulcerr at 9 years old, no surgery, no recurrent issues. Fluids: LR @ 60 Nutrition: NPO Code status: full code Dispo: PCU/tele Thank you for allowing me to participate in the care of your patient. -Dr. Ganesh Jane PGY1 Admission and Anticipated Discharge Date Admission Date: March 15, 2022 Supervising Physician Co-Signing Physician Notes Resident Physician Supervision Note: I independently interviewed and examined the patient and verified the su history and physical, reviewed labs and image studies and agree with resident findings and care plan. Subjective Patient was seen beside this AM. She continues to complain of diarrhea and reports only two instances of blood in her stool but has no blood in her stool since coming to the hospital. Patient states that her diarrhea started back in December and has been getting worse and worse. She is afraid that this is due to her heart as she recently went MV replacement. Review of Systems Review of Systems: All systems reviewed & are unremarkable except as noted in HPI & below Physical Exam Constitutional: WD/WN, vitals as above Respiratory: normal respiratory effort, lungs clear to auscultation Cardiovascular: RRR, no murmur, no edema Gastrointestinal (Abdomen): Inspection/Auscultation: abdomen normal to inspection and normal bowel sounds Percussion/Palpation: + abdomen tender (diffuse ) Musculoskeletal: no cyanosis or clubbing, extremities motor strength 5/5 Skin: no rashes, warm and dry Results & Data Results & Data ([facility]) Vital Signs (Past 12 Hours) Vital Signs Temp Pulse Pulse Resp BP Pulse Ox O2 Del Method 03/16/22 05:38 108 H 16 114/69 94 Room Air 03/16/22 03:08 114 H 16 98/58 L 94 Room Air 03/16/22 02:29 37.4 C 116 H 15 94/59 L 93 Room Air 03/15/22 22:15 115 H 03/15/22 22:40 37.0 C 118 H 18 105/58 L 93 Room Air 03/15/22 22:00 114 H 03/15/22 22:00 Room Air 03/15/22 21:10 37.2 C 122 H 18 112/75 96 Room Air 03/15/22 20:51 122 H 16 89/52 L 94 Room Air Resident Activity Tracking Resident Involvement: Resident Care Provided Care Provided: Adult Hospital Medicine
[2022-03-16] MEDS: HEPARIN SOD 5,000 UNIT/0.5 ML VIAL SQ SCH ×2 (08:48→21:24)
[2022-03-16] MEDS: METOPROLOL TARTRATE 1 MG/ML VIAL IV SCH ×3 (08:48→21:25)
[2022-03-16] MEDS ORDERED: ASPIRIN 81 MG CHEW PO SCH (09:00)
[2022-03-16] MEDS ORDERED: ASPIRIN 81 MG ECTAB PO SCH (09:00)
[2022-03-16] MEDS ORDERED: TRIAMTERENE/HCTZ 37.5/25MG TAB PO SCH ×2 (09:00)
[2022-03-16 09:19] LABS: Adenovirus F 40/41 PCR Not Detected (NotDetected); Astrovirus PCR Not Detected (NotDetected); Campylobacter PCR Not Detected (NotDetected); Cryptosporidium PCR Not Detected (NotDetected); Cyclospora cayetanensis PCR Not Detected (NotDetected); Entamoeba histolytica PCR Not Detected (NotDetected); Enteroaggregative E.coli(EAEC) Not Detected (NotDetected); Enteropathogenic E.coli (EPEC) Not Detected (NotDetected); Enterotoxigenic E.coli (ETEC) Not Detected (NotDetected); Giardia lamblia PCR Not Detected (NotDetected); Norovirus GI/GII PCR Not Detected (NotDetected); Plesiomonas shigelloides PCR Not Detected (NotDetected); Rotavirus A PCR Not Detected (NotDetected); Salmonella PCR Not Detected (NotDetected); Sapovirus PCR Not Detected (NotDetected); Shiga-like Toxin E.coli (STEC) Not Detected (NotDetected); Shigella/Enteroinvasive E.coli Not Detected (NotDetected); Vibrio cholerae PCR Not Detected (NotDetected); Vibrio species PCR Not Detected (NotDetected); Yersinia enterocolitica PCR Not Detected (NotDetected)
[2022-03-16 09:23] LABS: BUN Creatinine Ratio 24.1 (10-20); Calcium 7.8 mg/dl (8.5-10.1); Creatinine Clr Calc Pharmacy 53.6 ml/min; Est GFR (Non-African American) 78.6 ml/min; Potassium 3.2 mmol/L (3.5-5.1)
--- NOTE | 2022-03-16 10:03 | Gastrointestinal Consultation ---
Date of Consultation March 16, 2022 Assessment & Plan (1) Pancolitis: (2) Diarrhea: (3) Rectal bleeding: Pt is a 66 yo female seen for symptoms of diarrhea since starting Bactrim in Dec 2021, then recently started to develop more abd pain, n/v and rectal bleeding. CT abd/pelvis w signs of pancolitis, and contained perforation in the descending colon area. DDX: ischemic vs infectious vs inflammatory colitis. - NPO - Surgery consulted - Continue IV antibiotics - DC Vancomycin since Cdiff gene negative - F/U final results of stool cx - Will arrange f/u CT to re-eval perforation in about 3 weeks' time, then if resolved, will plan for colonsocopy eval in 4-6 week's Supervising Physician Co-Signing Physician Notes I have personally seen and examined the patient with BEATRIZ Tompkins. Her note reflects my exam and findings. I agree with her impression and plan. Less abdominal pain. No acute abdomen on exam. Working diagnosis at this point is ischemic colitis from hypotension. Cont current Tx. Discussed with family at bedside as well. Rodger Baldwin M.D. History of Present Illness Reason for Consultation: Pancolitis, suspected C. difficile Requesting Physician: Dr. Norah Amato Attending Physician: Dr. 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 She was on ECMO machine after her surgery as well. Her surgery took place in October 2021 at . She recalled having constipation after her surgery but after given stool softeners she moved her bowels well. She had UTI in December 2021, treated w Bactrim. 8 days into Bactrim she started having diarrhea up to 4x a day associated w some cramping, but no rectal bleeding. + occasional nocturnal awakening at times. She denies unexpected weight/appetite loss. OP Cdiff test negative per her report. Around February she did have 2 week's worth of normal bowel movements. But then diarrhea returns. She developed more abd pain, n/v, and rectal bleeding few days ago and decided to come into ED for evaluation. Upon evaluation, she was found to have leukocytosis, h/h normal. Renal and liver functions normal. Lactate level elevated w CT abd/pelvis showing pancolitis and sign of possible contained perforation, trace ascites also noted but no bowel obstruction. Repeat stool studies w Cdiff negative gene, rest of pathogens pending. COVID 19 negative. Pt reports hx of duodenal ulcer at age 9. Mother had "growth in duodenum" which was removed. Pt's brother w hx of ? colon ca. Her last colonoscopy was in 2019 - hemorrhoids, otherwise normal. She denies regular uses of NSAIDs, also denies ETOH, tobacco, herbal supplements. Allergies Allergy/AdvReac Type Severity Reaction Status Date / Time latex Allergy Intermediate Hives-ON Verified 03/15/22 12:46 OCC WITH GLOVES, BLOWING BALLOONS amoxicillin [From Augmentin] Allergy Unknown Rash Verified 03/15/22 12:46 clavulanic acid Allergy Unknown Rash Verified 03/15/22 12:46 [From Augmentin] nitrofurantoin Allergy Unknown Rash, Verified 03/15/22 12:46 [From Macrobid] nausea hazelnut AdvReac Intermediate ASTHMATIC Verified 03/15/22 12:46 SYMPTOMS prochlorperazine AdvReac Unknown Unconscious Unverified 03/14/22 13:06 [From Compazine] DRIED FRUITS AdvReac Intermediate ASTHMATIC Uncoded 03/15/22 12:46 SYMPTOMS Home Medications Medication Instructions Recorded Confirmed Type azelastine 137 mcg (0.1 %) nasal 2 spray intranasal DAILY PRN 08/28/20 03/15/22 History spray aerosol Allergy Symptoms fluticasone propionate 50 2 spray intranasal DAILY PRN nasal 03/08/21 03/15/22 Rx mcg/actuation nasal congestion #15.8 mL spray,suspension aspirin 81 mg chewable tablet 81 mg PO DAILY 12/15/21 03/15/22 History metoprolol succinate 25 mg 12.5 mg PO BID #90 tabs 12/20/21 03/15/22 Rx tablet,extended release 24 hr lansoprazole 15 mg capsule,delayed 15 mg PO DAILY #30 caps 02/08/22 03/15/22 Rx release triamterene 37.5 1 tab PO DAILY #90 tabs 03/14/22 03/15/22 Rx mg-hydrochlorothiazide 25 mg tablet (Maxzide-25mg) denosumab 60 mg/mL subcutaneous 0 mg subcut .Q6MOS 03/15/22 03/15/22 History syringe (Prolia) Patient History Medical History Adnexal cyst Left side- per [employer] u/s 08/10/20- "lesion stable to mildly decreased in size" Anxiety Dysfunction of eustachian tube GERD (gastroesophageal reflux disease) Heart palpitations 2017-F/U DR CARRILLO Mitral valve prolapse DR. GHAZAL CARRILLO Osteoporosis Sensorineural hearing loss (SNHL) of left ear with unrestricted hearing of right ear Stomach ulcer Urinary tract infection HX-"OVERACTIVE BLADDER" Surgical History History of cardiac cath NO STENTS-2016 [facility] History of colonoscopy 2013 History of dilation and curettage History of esophagogastroduodenoscopy (EGD) History of tooth extraction Status post fine needle aspiration (~1999) breast Family History Brother Family hx colonic polyps Aneurysm Father Heart disease Hyperlipidemia Myocardial infarction Hypertension Sister Hyperlipidemia Breast cancer, Onset Age: 36 Hypertension Mother Osteoporosis Family history of reaction to anesthesia SLOW TO WAKE UP Denies family history of Ovarian cancer Prostate cancer Colorectal cancer Social History Smoking Status: Never smoker Tobacco Type: Cigarettes Age Started Using Tobacco: 17; Age Quit Using Tobacco: 28; packs per day: 0.5; Second Hand Exposure: Yes (SPOUSE USED TO SMOKE); Hx Alcohol Use: Yes Alcohol type: wine Alcohol Intake Frequency: Monthly or Less Hx Substance Use: No Preferred Language: Greenlandic Communication Ability: Effective Visual Impairment: No Limitations Hearing Ability: Normal Router Setter Required: No Beliefs That Will Affect Care: None marital status: Current Living Situation: Alone Current Living Situation Comment: SON current occupational status: employed 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 How many Children do You have: 3 Feels Safe at Home: Yes Childhood Exposure to Second-Hand Smoke: No caffeine: Yes during the past year weight has: remained stable Dental Care, Regularly: Yes Physical Activity Frequency: 3-4 Times per Week Seatbelt Use: always Sunscreen Use: Yes Do you think of yourself as: straight/heterosexual Assistive Devices: Denture - Upper and Glasses Review of Systems Review of Systems: All systems reviewed & are unremarkable except as noted in HPI & below Physical Exam Constitutional: WD/WN, vitals as above well groomed, cooperative and comf ortable Eyes: PERRL, conjunctivae normal, anicteric sclerae ENMT: external ear and nose normal, oropharynx normal Respiratory: normal respiratory effort, lungs clear to auscultation Cardiovascular: RRR, no murmur, no edema Gastrointestinal (Abdomen): Soft, BS hypoactive, TTP diffusely but no guarding. Skin: no rashes, warm and dry no jaundice Psychiatric: A+Ox3, euthymic affect Lymphatic: no lymphedema Results & Data ([facility]) Vital Signs (Past 12 Hours) Vital Signs Temp Pulse Pulse Resp BP Pulse Ox O2 Del Method 03/16/22 08:00 109 H 03/16/22 07:54 36.9 C 108 H 16 113/73 91 Room Air 03/16/22 05:38 108 H 16 114/69 94 Room Air 03/16/22 03:08 114 H 16 98/58 L 94 Room Air 03/16/22 02:29 37.4 C 116 H 15 94/59 L 93 Room Air 03/15/22 22:15 115 H 03/15/22 22:40 37.0 C 118 H 18 105/58 L 93 Room Air 03/15/22 22:00 114 H 03/15/22 22:00 Room Air
[2022-03-16 10:35] LABS: Basophils # (auto) 0.05 K/uL (0-0.2); Basophils % (auto) 0.4 %; Eosinophils # (auto) 0.04 K/uL (0-0.50); Eosinophils % (auto) 0.3 %; Hematocrit (blood only) 26.5 % (34.1-44.9); Hemoglobin 8.8 g/dl (12.0-16.0); Immature Granulocytes # (auto) 0.05 K/uL (0.00-0.02); Immature Granulocytes % (auto) 0.4 %; Lymphocytes # (auto) 1.15 K/uL (1.2-3.4); Lymphocytes % (auto) 9.1 %; Mean Corpuscular Hemoglobin 31.1 pg (25.0-34.0); Mean Corpuscular Hgb Conc 33.2 g/dL (32.0-36.0); Mean Corpuscular Volume 93.6 fL (80.0-100.0); Mean Platelet Volume 9.9 fL (9.4-12.3); Monocytes # (auto) 0.61 K/uL (0.24-0.82); Monocytes % (auto) 4.8 %; Neutrophils # (auto) 10.68 K/uL (1.4-6.5); Platelet Count 199 K/uL (130-400); RDW Coefficient of Variation 12.9 % (11.5-14.5); RDW Standard Deviation 44.2 fL (36.4-46.3); Red Blood Count 2.83 M/uL (3.93-5.22); White Blood Count 12.58 K/ul (4.8-10.8)
[2022-03-16] MEDS: PANTOprazole 40 MG in SYRINGE 0 ML IV SCH (11:15)
[2022-03-16] MEDS: CEFEPIME 2,000 MG in SYRINGE 0 ML IV SCH (12:56)
[2022-03-16] MEDS: CEFEPIME 1,000 MG in SYRINGE 0 ML IV SCH (12:56)
[2022-03-16] MEDS ORDERED: LACTATED RINGER'S 1,000 ML IV SCH (15:00)
[2022-03-16 15:03] LABS: Hematocrit (blood only) 27.9 % (34.1-44.9); Hemoglobin 9.2 g/dl (12.0-16.0)
--- NOTE | 2022-03-16 15:26 | Surgery Progress Note ---
Date of Service March 16, 2022 Assessment & Plan (1) Pancolitis: (2) Diarrhea: Plan afebrile leukocytosis improving hemodynamically stable lactic acid improving abdominal exam without rebound, peritonitis, or distention. pain slowly improving Plan: Continue conservative measures await stool study results continue IV fluids Continue IV antibiotics Continue bowel rest for now encourage OOB to chair and ambulation continue medical management Dr. Alves has seen and examined pt, agrees with above. Admission and Anticipated Discharge Date Admission Date: March 15, 2022 Subjective feeling slightly better today, abdominal pain is still present Still having diarrhea no nausea or vomiting Physical Exam Constitutional: WD/WN, vitals as above cooperative and comfortable; no acute distress and not ill appearing Neck: normal visual inspection and trachea midline Respiratory: normal respiratory effort; no respiratory distress and no labored breathing Gastrointestinal (Abdomen): Inspection/Auscultation: abdomen normal to inspection; abdomen not distended Percussion/Palpation: + abdomen tender (Left mid and lower abdomen), + guarding (voluntary on deep palpation) and abdomen soft; abdomen not rigid No peritonitis or rebound Skin: no rashes, warm and dry Psychiatric: Orientation: alert and oriented x 3 Results & Data ([facility]) Vital Signs (Past 12 Hours) Vital Signs Temp Pulse Pulse Resp BP Pulse Ox O2 Del Method 03/16/22 14:25 118 H 135/84 03/16/22 11:30 37.1 C 105 H 18 112/72 92 Room Air 03/16/22 08:00 109 H 03/16/22 07:54 36.9 C 108 H 16 113/73 91 Room Air 03/16/22 05:38 108 H 16 114/69 94 Room Air Laboratory Results 03/16/22 03/16/22 03/16/22 Range/Units 14:54 10:08 08:47 WBC (4.8-10.8) K/ul RBC (3.93-5.22) M/uL Hgb 9.2 L 9.4 L (12.0-16.0) g/dl Hct 27.9 L (34.1-44.9) % MCV (80.0-100.0) fL MCH (25.0-34.0) pg MCHC (32.0-36.0) g/dL RDW Std Deviation (36.4-46.3) fL RDW Coeff of Ruchi (11.5-14.5) % Plt Count (130-400) K/uL MPV (9.4-12.3) fL Immature Gran % (Auto) % Neut % (Auto) % Lymph % (Auto) % [place] % (Auto) % Eos % (Auto) % Baso % (Auto) % Neut # (Auto) (1.4-6.5) K/uL Lymph # (Auto) (1.2-3.4) K/uL [place] # (Auto) (0.24-0.82) K/uL Eos # (Auto) (0-0.50) K/uL Baso # (Auto) (0-0.2) K/uL Immature Gran # (Auto) (0.00-0.02) K/uL Sodium 141 (136-145) mmol/L Potassium 3.2 L (3.5-5.1) mmol/L Chloride 112 H (98-107) mmol/L Carbon Dioxide 27 (21-32) mmol/L Anion Gap 2 L (3-11) BUN 19 (6-23) mg/dl Creatinine 0.79 (0.6-1.2) mg/dl Est Cr Clr Drug Dosing 53.6 ml/min Est GFR ( Amer) 91.0 ml/min Est GFR (Non-Af Amer) 78.6 ml/min BUN/Creatinine Ratio 24.1 H (10-20) Glucose 101 H (70-99(Fasting)) mg/dl Calcium 7.8 L (8.5-10.1) mg/dl Stl C. cayetanensis PCR (NotDetected) Stool Rotavirus A PCR (NotDetected) Stl Adenov F 40/41 PCR (NotDetected) Stool Astrovirus (PCR) (NotDetected) Stool Campylobacter PCR (NotDetected) Stl C. diff Tox B Gene (Neg) Stool Cryptosporidium PCR (NotDetected) Stl E.coli Shiga Tox PCR (NotDetected) Stl Enterotoxigenic E PCR (NotDetected) Stool EPEC (PCR) (NotDetected) Stool EAEC (PCR) (NotDetected) Stl E. histolytica PCR (NotDetected) Stool Giardia Lamblia PCR (NotDetected) Stool Salmonella PCR (NotDetected) Stool Sapovirus (PCR) (NotDetected) Stl P. shigelloides PCR (NotDetected) Stl Shigella/EIEC PCR (NotDetected) St Y.enterocolitica PCR (NotDetected) Stool Vibrio (PCR) (NotDetected) Stl Vibrio cholerae PCR (NotDetected) Stl Norovirus GI/GII PCR (NotDetected) Stool Comments 03/16/22 03/16/22 03/16/22 Range/Units 08:47 07:32 07:32 WBC 12.58 H (4.8-10.8) K/ul RBC 2.83 L (3.93-5.22) M/uL Hgb 8.8 L D (12.0-16.0) g/dl Hct 26.5 L (34.1-44.9) % MCV 93.6 D (80.0-100.0) fL MCH 31.1 (25.0-34.0) pg MCHC 33.2 (32.0-36.0) g/dL RDW Std Deviation 44.2 (36.4-46.3) fL RDW Coeff of Ruchi 12.9 (11.5-14.5) % Plt Count 199 (130-400) K/uL MPV 9.9 (9.4-12.3) fL Immature Gran % (Auto) 0.4 % Neut % (Auto) 85.0 % Lymph % (Auto) 9.1 % [place] % (Auto) 4.8 % Eos % (Auto) 0.3 % Baso % (Auto) 0.4 % Neut # (Auto) 10.68 H (1.4-6.5) K/uL Lymph # (Auto) 1.15 L (1.2-3.4) K/uL [place] # (Auto) 0.61 (0.24-0.82) K/uL Eos # (Auto) 0.04 (0-0.50) K/uL Baso # (Auto) 0.05 (0-0.2) K/uL Immature Gran # (Auto) 0.05 H (0.00-0.02) K/uL Sodium (136-145) mmol/L Potassium (3.5-5.1) mmol/L Chloride (98-107) mmol/L Carbon Dioxide (21-32) mmol/L Anion Gap (3-11) BUN (6-23) mg/dl Creatinine (0.6-1.2) mg/dl Est Cr Clr Drug Dosing ml/min Est GFR ( Amer) ml/min Est GFR (Non-Af Amer) ml/min BUN/Creatinine Ratio (10-20) Glucose (70-99(Fasting)) mg/dl Calcium (8.5-10.1) mg/dl Stl C. cayetanensis PCR Not Detected (NotDetected) Stool Rotavirus A PCR Not Detected (NotDetected) Stl Adenov F 40/41 PCR Not Detected (NotDetected) Stool Astrovirus (PCR) Not Detected (NotDetected) Stool Campylobacter PCR Not Detected (NotDetected) Stl C. diff Tox B Gene (Neg) Stool Cryptosporidium PCR Not Detected (NotDetected) Stl E.coli Shiga Tox PCR Not Detected (NotDetected) Stl Enterotoxigenic E PCR Not Detected (NotDetected) Stool EPEC (PCR) Not Detected (NotDetected) Stool EAEC (PCR) Not Detected (NotDetected) Stl E. histolytica PCR Not Detected (NotDetected) Stool Giardia Lamblia PCR Not Detected (NotDetected) Stool Salmonella PCR Not Detected (NotDetected) Stool Sapovirus (PCR) Not Detected (NotDetected) Stl P. shigelloides PCR Not Detected (NotDetected) Stl Shigella/EIEC PCR Not Detected (NotDetected) St Y.enterocolitica PCR Not Detected (NotDetected) Stool Vibrio (PCR) Not Detected (NotDetected) Stl Vibrio cholerae PCR Not Detected (NotDetected) Stl Norovirus GI/GII PCR Not Detected (NotDetected) Stool Comments Pending 03/16/22 03/15/22 Range/Units 07:32 18:00 WBC (4.8-10.8) K/ul RBC (3.93-5.22) M/uL Hgb (12.0-16.0) g/dl Hct (34.1-44.9) % MCV (80.0-100.0) fL MCH (25.0-34.0) pg MCHC (32.0-36.0) g/dL RDW Std Deviation (36.4-46.3) fL RDW Coeff of Ruchi (11.5-14.5) % Plt Count (130-400) K/uL MPV (9.4-12.3) fL Immature Gran % (Auto) % Neut % (Auto) % Lymph % (Auto) % [place] % (Auto) % Eos % (Auto) % Baso % (Auto) % Neut # (Auto) (1.4-6.5) K/uL Lymph # (Auto) (1.2-3.4) K/uL [place] # (Auto) (0.24-0.82) K/uL Eos # (Auto) (0-0.50) K/uL Baso # (Auto) (0-0.2) K/uL Immature Gran # (Auto) (0.00-0.02) K/uL Sodium 141 (136-145) mmol/L Potassium 3.9 D (3.5-5.1) mmol/L Chloride 110 H (98-107) mmol/L Carbon Dioxide 26 (21-32) mmol/L Anion Gap 5 (3-11) BUN 21 (6-23) mg/dl Creatinine 0.79 (0.6-1.2) mg/dl Est Cr Clr Drug Dosing 53.2 ml/min Est GFR ( Amer) 91.0 ml/min Est GFR (Non-Af Amer) 78.6 ml/min BUN/Creatinine Ratio 26.6 H (10-20) Glucose 119 H (70-99(Fasting)) mg/dl Calcium 8.3 L (8.5-10.1) mg/dl Stl C. cayetanensis PCR (NotDetected) Stool Rotavirus A PCR (NotDetected) Stl Adenov F 40/41 PCR (NotDetected) Stool Astrovirus (PCR) (NotDetected) Stool Campylobacter PCR (NotDetected) Stl C. diff Tox B Gene Negative Cdiff Gene (Neg) Stool Cryptosporidium PCR (NotDetected) Stl E.coli Shiga Tox PCR (NotDetected) Stl Enterotoxigenic E PCR (NotDetected) Stool EPEC (PCR) (NotDetected) Stool EAEC (PCR) (NotDetected) Stl E. histolytica PCR (NotDetected) Stool Giardia Lamblia PCR (NotDetected) Stool Salmonella PCR (NotDetected) Stool Sapovirus (PCR) (NotDetected) Stl P. shigelloides PCR (NotDetected) Stl Shigella/EIEC PCR (NotDetected) St Y.enterocolitica PCR (NotDetected) Stool Vibrio (PCR) (NotDetected) Stl Vibrio cholerae PCR (NotDetected) Stl Norovirus GI/GII PCR (NotDetected) Stool Comments
[2022-03-16] MEDS ORDERED: MAGNESIUM SULFATE / D5W 1 GM/100 ML BAG IV ONE (18:51)
[2022-03-16] MEDS: POTASSIUM CHLORIDE / WTR 10 MEQ/100 ML PLCT IV SCH ×3 (20:21→22:10)
[2022-03-16] MEDS: ACETAMINOPHEN 1000 MG/100 ML IV IV PRN (21:00)
[2022-03-16] MEDS: ONDANSETRON INJ 2 MG/ML 2 ML VIAL IV PRN (21:02)
[2022-03-16 22:29] LABS: Hematocrit (blood only) 26.4 % (34.1-44.9); Hemoglobin 8.8 g/dl (12.0-16.0)
[2022-03-17] MEDS: CEFEPIME 2,000 MG in SYRINGE 0 ML IV SCH ×2 (01:08→13:36)
[2022-03-17] MEDS: METOPROLOL TARTRATE 1 MG/ML VIAL IV SCH ×4 (03:07→21:23)
[2022-03-17 04:24] LABS: Basophils # (auto) 0.06 K/uL (0-0.2); Basophils % (auto) 0.6 %; Eosinophils # (auto) 0.15 K/uL (0-0.50); Eosinophils % (auto) 1.5 %; Hematocrit (blood only) 27.3 % (34.1-44.9); Hemoglobin 9.1 g/dl (12.0-16.0); Immature Granulocytes # (auto) 0.03 K/uL (0.00-0.02); Immature Granulocytes % (auto) 0.3 %; Lymphocytes # (auto) 1.09 K/uL (1.2-3.4); Lymphocytes % (auto) 10.9 %; Mean Corpuscular Hemoglobin 30.8 pg (25.0-34.0); Mean Corpuscular Hgb Conc 33.3 g/dL (32.0-36.0); Mean Corpuscular Volume 92.5 fL (80.0-100.0); Mean Platelet Volume 9.5 fL (9.4-12.3); Monocytes # (auto) 0.54 K/uL (0.24-0.82); Monocytes % (auto) 5.4 %; Neutrophils # (auto) 8.13 K/uL (1.4-6.5); Neutrophils % (auto) 81.3 %; Platelet Count 191 K/uL (130-400); RDW Coefficient of Variation 12.6 % (11.5-14.5); RDW Standard Deviation 42.6 fL (36.4-46.3); Red Blood Count 2.95 M/uL (3.93-5.22)
[2022-03-17 04:40] LABS: BUN Creatinine Ratio 21.4 (10-20); Calcium 8.1 mg/dl (8.5-10.1); Creatinine Clr Calc Pharmacy 60.5 ml/min; Est GFR (African American) 105.4 ml/min; Est GFR (Non-African American) 90.9 ml/min; Magnesium 2.1 mg/dl (1.7-2.4); Potassium 3.4 mmol/L (3.5-5.1)
[2022-03-17] MEDS: POTASSIUM CHLORIDE 20 MEQ in LACTATED RINGER'S 1,000 ML IV SCH ×2 (05:16→21:24)
[2022-03-17] MEDS: metroNIDAZOLE 500 MG/100 ML BAG IV SCH ×3 (05:17→21:24)
--- NOTE | 2022-03-17 06:48 | Hospitalist Progress Note ---
Date of Service March 17, 2022 Assessment & Plan (1) Pancolitis: (2) Diarrhea: (3) Rectal bleeding: (4) Hypokalemia: Plan #Sepsis in the setting of pancolitis with colon perforation #Pancolitis - 3 months of chronic nonbloody diarrhea w/ acute, diffuse abdominal cramping, n/v, BRBPR at home on 03/14 and then on 03/15 morning. - WBC 12, lactate 2.3, ESR 30, CRP normal - CT A/P on 03/15: Moderate diffuse thickening of the colonic wall consistent with a pancolitis. There is extraluminal gas of the descending colon consistent with a contained perforation. Therefore, ischemic colitis would be the diagnosis of exclusion. - Neg for c dif as outpatient 12/28 - C diff and Stool studies negative on 03/15. Waiting on final results on stool culture. - Will trend lactate, is initially elevated to 3.3 concerning given possibility of ischemic colitis but may be in the setting of dehydration, n/v/d. - LR 1000 cc bolus in ED; continue LRs @ 75 cc/hr - Oral Vancomycin was started in the ED for possible c diff. D/C due to negative C diff testing on 03/15. - Will continue on cefepime and Flagyl for perforation. Cefepime increased to 2mg BID. - General surgery consulted, recommending continuing abx, fluids, and to continue with bowel rest. No surgical intervention needed at this time. - Consult GI concerning chronic diarrhea, pancolitis - Will advance diet to clear liquids on 03/17 per GI recommendations and advance as tolerate. CT re-eval in 3 weeks, then possibly colonoscopy in 4-6 weeks. Headache - Most likely 2/2 not eating, dehydration, and should improve once patient starts to eat - Acetaminophen IV 1,000mg Q8H prn - Gave tramadol 25mg PO once at 03/17, Though pt refused due to worry that it would upset her stomach. #GIB -possibly sec to ischemic colitis -Patient c/o 2 episodes of blood on her stool. -Nursing notes blood in her stool on the morning of 03/16. -Hemoglobin 13.5 on 03/15, Hemoglobin 8.8 on 03/17 -Patient is type and crossed and consented. Consent form filled out. -Threshold for transfusion is 7. -GI and surgery on board. -Hemoglobin stable, will repeat H&H at 5:30pm. If normal then CBC in AM. #Mitral valve prolapse s/p MV replacement - s/p MV replacement with annuloplasty ring and tricuspid valve annuloplasty in November - Complicated by brief atrial fibrillation in cardiogenic shock requiring ECMO and nitrous oxide for support. - No longer on rate/rhythm control or AC for a fib. 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 - Doing well per recent cardiology note 02/18 - Continue metoprolol, have converted PO to IV while NPO. #Hypokalemia - IV repletion in ED, 3.4 this AM. Repleted KCl on 03/17. - Will continue to monitor in AM labs. -Given 4 bags of KCL -on KCL maintenance fluids with LR. can D/C if potassium is too high on AM labs. #Osteoporosis - Prolia injections q6 months. #GERD (gastroesophageal reflux disease) - Continue PPI, switch lansoprazole to Protonix per hospital formulary, ordered IV while NPO. - Isolated hx of duodenal ulcerr at 9 years old, no surgery, no recurrent issues. Fluids: LR @ 60 Nutrition: NPO --> advancing to CL as tolerated Code status: full code Dispo: PCU/tele Thank you for allowing me to participate in the care of your patient. -Dr. Ganesh Jane PGY1 Admission and Anticipated Discharge Date Admission Date: March 15, 2022 Supervising Physician Co-Signing Physician Notes Resident Physician Supervision Note: I independently interviewed and examined the patient and verified the su history and physical, reviewed labs and image studies and agree with resident findings and care plan. Subjective Patient was seen beside this AM. She continues to have diffuse ab pain and diarrhea. Today she also c/o MUÑZO that is 5/10 pain, around the center of her forehead that is causing her pain. Review of Systems Review of Systems: All systems reviewed & are unremarkable except as noted in HPI & below Physical Exam Constitutional: WD/WN, vitals as above Respiratory: normal respiratory effort, lungs clear to auscultation Cardiovascular: RRR, no murmur, no edema Gastrointestinal (Abdomen): Inspection/Auscultation: abdomen normal to inspection and normal bowel sounds Percussion/Palpation: + abdomen tender (diffuse ) Musculoskeletal: no cyanosis or clubbing, extremities motor strength 5/5 Skin: no rashes, warm and dry Results & Data Results & Data ([facility]) Vital Signs (Past 12 Hours) Vital Signs Temp Pulse Pulse Resp BP Pulse Ox O2 Del Method 03/17/22 03:00 36.8 C 106 H 16 132/81 93 Room Air 03/16/22 22:10 100 H 03/16/22 20:00 Room Air 03/16/22 23:13 36.9 C 93 H 16 107/63 92 Room Air 03/16/22 20:51 36.9 C 108 H 18 106/72 92 Room Air Resident Activity Tracking Resident Involvement: Resident Care Provided Care Provided: Adult Hospital Medicine
[2022-03-17] MEDS: ACETAMINOPHEN 1000 MG/100 ML IV IV PRN ×2 (07:39→16:29)
--- NOTE | 2022-03-17 08:11 | Electrocardiogram Report ---
Test Reason : Blood Pressure : / mmHG Vent. Rate : 104 BPM Atrial Rate : 208 BPM P-R Int : 000 ms QRS Dur : 088 ms QT Int : 200 ms P-R-T Axes : 059 -19 222 degrees QTc Int : 263 ms Poor data quality, interpretation may be adversely affected Probable Sinus rhythm Diffuse Nonspecific T wave abnormality When compared with ECG of 15-MAR-2022 08:12, ST depression in Anterolateral leads no longer present Confirmed by Mohinder Childers ([id number]) on 03/17/2022 8:11:22 AM Referred By: REFERRED SELF Confirmed By:Mohinder Childers
--- NOTE | 2022-03-17 08:12 | Electrocardiogram Report ---
Test Reason : Blood Pressure : / mmHG Vent. Rate : 103 BPM Atrial Rate : 103 BPM P-R Int : 246 ms QRS Dur : 086 ms QT Int : 270 ms P-R-T Axes : 000 -30 270 degrees QTc Int : 353 ms Poor data quality, interpretation may be adversely affected Sinus tachycardia with 1st degree A-V block Diffuse Nonspecific T wave abnormality Abnormal ECG When compared with ECG of 16-MAR-2022 20:26, No significant change Confirmed by Mohinder Childers ([id number]) on 03/17/2022 8:11:49 AM Referred By: REFERRED SELF Confirmed By:Mohinder Childers
[2022-03-17 09:41] LABS: Hematocrit (blood only) 26.4 % (34.1-44.9); Hemoglobin 8.8 g/dl (12.0-16.0)
[2022-03-17] MEDS: POTASSIUM CHLORIDE / WTR 10 MEQ/100 ML PLCT IV SCH ×4 (10:13→13:35)
[2022-03-17] MEDS: HEPARIN SOD 5,000 UNIT/0.5 ML VIAL SQ SCH ×2 (10:15→21:21)
[2022-03-17] MEDS: PANTOprazole 40 MG in SYRINGE 0 ML IV SCH (11:15)
--- NOTE | 2022-03-17 12:02 | Gastroenterology Progress Note ---
Date of Service March 17, 2022 Assessment & Plan (1) Pancolitis: (2) Diarrhea: (3) Rectal bleeding: Plan: Pt is a 66 yo female seen for symptoms of diarrhea since starting Bactrim in Dec 2021, then recently started to develop more abd pain, n/v and rectal bleeding. Stool studies negative. CT abd/pelvis w signs of pancolitis, and contained perforation in the descending colon area. DDX: ischemic vs infectious vs inflammatory colitis. - Consider starting sips of CL diet - Surgery following - Continue IV antibiotics - Imodium prn diarrhea - Will arrange f/u CT to re-eval perforation in about 3 weeks' time, then if resolved, will plan for colonoscopy eval in 4-6 week's Admission and Anticipated Discharge Date Admission Date: March 15, 2022 Supervising Physician Co-Signing Physician Notes I have personally seen and examined the patient with BEATRIZ Tompkins. Her note reflects my exam and findings. I agree with her impression and plan. Slowly improving. I agree with trial of sips of clears. Rodger Baldwin M.D. Subjective Pt reports about 5 BMs yesterday w nocturnal awakening. Abd pain on sides improved. No n/v. Is having MUÑOZ Review of Systems Review of Systems: All systems reviewed & are unremarkable except as noted in HPI & below Physical Exam Constitutional: WD/WN, vitals as above well groomed, cooperative and comfortable Eyes: PERRL, conjunctivae normal, anicteric sclerae ENMT: external ear and nose normal, oropharynx normal Respiratory: normal respiratory effort, lungs clear to auscultation Cardiovascular: RRR, no murmur, no edema Gastrointestinal (Abdomen): BS hypoactive, soft, no guarding, some TTP along sides Skin: no rashes, warm and dry no jaundice Psychiatric: A+Ox3, euthymic affect Lymphatic: no lymphedema Results & Data ([facility]) Vital Signs (Past 12 Hours) Vital Signs Temp Pulse Pulse Resp BP BP Pulse Ox 03/17/22 08:04 89 114/68 03/17/22 07:56 36.9 C 89 16 114/68 90 03/17/22 07:52 95 H 03/17/22 03:00 36.8 C 106 H 16 132/81 93 O2 Del Method 03/17/22 08:04 03/17/22 07:56 Room Air 03/17/22 07:52 03/17/22 03:00 Room Air
--- NOTE | 2022-03-17 13:24 | Surgery Progress Note ---
Date of Service March 17, 2022 Assessment & Plan (1) Pancolitis: (2) Diarrhea: Plan afebrile leukocytosis improving hemodynamically stable lactic acid improving abdominal exam without rebound, peritonitis, or distention. pain slowly improving Plan: Continue conservative measures await stool study results continue IV fluids Continue IV antibiotics Continue bowel rest for now encourage OOB to chair and ambulation continue medical management Admission and Anticipated Discharge Date Admission Date: March 15, 2022 Subjective Still having diarrhea today. Abdominal pain is improving. Denies fevers or chills. Denies nausea or vomiting. Physical Exam Constitutional: WD/WN, vitals as above comfortable; no acute distress Gastrointestinal (Abdomen): Inspection/Auscultation: abdomen normal to inspection; abdomen not distended Percussion/Palpation: + abdomen tender (Left mid and lower abdomen) and abdomen soft; abdomen not rigid and abdomen not firm Skin: no rashes, warm and dry Psychiatric: A+Ox3, euthymic affect Results & Data ([facility]) Vital Signs (Past 12 Hours) Vital Signs Temp Pulse Pulse Resp BP BP Pulse Ox 03/17/22 12:02 36.8 C 98 H 17 117/76 95 03/17/22 08:04 89 114/68 03/17/22 07:56 36.9 C 89 16 114/68 90 03/17/22 07:52 95 H 03/17/22 03:00 36.8 C 106 H 16 132/81 93 O2 Del Method 03/17/22 12:02 Room Air 03/17/22 08:04 03/17/22 07:56 Room Air 03/17/22 07:52 03/17/22 03:00 Room Air
[2022-03-17] MEDS: LOPERAMIDE HCL 2 MG CAP PO PRN (15:07)
[2022-03-17] MEDS ORDERED: traMADol HCL 50 MG TABLET PO ONE (15:55)
[2022-03-17 18:34] LABS: Hematocrit (blood only) 27.4 % (34.1-44.9)
[2022-03-18] MEDS: CEFEPIME 2,000 MG in SYRINGE 0 ML IV SCH ×2 (03:21→13:34)
[2022-03-18] MEDS: METOPROLOL TARTRATE 1 MG/ML VIAL IV SCH ×3 (03:21→15:44)
[2022-03-18] MEDS: metroNIDAZOLE 500 MG/100 ML BAG IV SCH ×3 (03:22→21:11)
--- NOTE | 2022-03-18 06:53 | Hospitalist Progress Note ---
Date of Service March 18, 2022 Assessment & Plan (1) Pancolitis: (2) Diarrhea: (3) Rectal bleeding: (4) Hypokalemia: Plan #Sepsis in the setting of pancolitis with colon perforation #Pancolitis - 3 months of chronic nonbloody diarrhea w/ acute, diffuse abdominal cramping, n/v, BRBPR at home on 03/14 and then on 03/15 morning. - WBC 12, lactate 2.3, ESR 30, CRP normal - CT A/P on 03/15: Moderate diffuse thickening of the colonic wall consistent with a pancolitis. There is extraluminal gas of the descending colon consistent with a contained perforation. Therefore, ischemic colitis would be the diagnosis of exclusion. - Neg for c dif as outpatient 12/28 - C diff and Stool studies negative on 03/15. - LR 1000 cc bolus in ED; continue LRs @ 75 cc/hr - Oral Vancomycin was started in the ED for possible c diff. D/C due to negative C diff testing on 03/15. - Will continue on cefepime and Flagyl for perforation. Cefepime increased to 2mg BID. - General surgery consulted, recommending continuing abx, fluids, and to continue with bowel rest. No surgical intervention needed at this time. - Consult GI - clear liquids on 03/17 - CT re-eval in 3 weeks, then possibly colonoscopy in 4-6 weeks. - iron studies ordered given anemia. As well as Transglutaminase IgA. - stop prolia - consider questran for diarrhea - Will continue to advance diet as tolerated. Headache - Most likely 2/2 not eating, dehydration, and should improve once patient starts to eat - Acetaminophen IV 1,000mg Q8H prn - Gave tramadol 25mg PO once at 03/17, Though pt refused due to worry that it would upset her stomach. - Patient does not want to try any other medications for her MUÑOZ at this time and rather try acetaminophen. #GIB -possibly sec to ischemic colitis -Patient c/o 2 episodes of blood on her stool. -Nursing notes blood in her stool on the morning of 03/16. -Hemoglobin 13.5 on 03/15, Hemoglobin 8.8 on 03/17. 9.5 on 03/18. -Patient is type and crossed and consented. Consent form filled out. -Threshold for transfusion is 7. -h/h has been stable -Will monitor with AM labs. #Mitral valve prolapse s/p MV replacement - s/p MV replacement with annuloplasty ring and tricuspid valve annuloplasty in November - Complicated by brief atrial fibrillation in cardiogenic shock requiring ECMO and nitrous oxide for support. - No longer on rate/rhythm control or AC for a fib. 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 - Doing well per recent cardiology note 02/18 - Continue metoprolol, have converted back to PO now that patient is advancing diet. #Osteoporosis - Prolia injections q6 months. - Will D/C Prolia at this time per recommendations from GI. #GERD (gastroesophageal reflux disease) - Continue PPI, switch lansoprazole to Protonix per hospital formulary, ordered IV due to previously NPO, Will consider switching back to PO tomorrow. - Isolated hx of duodenal ulcer at 9 years old, no surgery, no recurrent issues. #Anxiety -Patient most likely has some undiagnosed anxiety that may be stemming from MVP surgery. -Outpatient workup and consider SSRI. Fluids: LR @ 60 Nutrition: CL --> advancing diet as tolerated Code status: full code Dispo: PCU/tele Thank you for allowing me to participate in the care of your patient. -Dr. Ganesh Jane PGY1 Admission and Anticipated Discharge Date Admission Date: March 15, 2022 Supervising Physician Co-Signing Physician Notes Resident Physician Supervision Note: I independently interviewed and examined the patient and verified the su history and physical, reviewed labs and image studies and agree with resident findings and care plan. Subjective Patient was seen bedside this AM. She states that she continues to have a MUÑOZ and it feels across his head. She has tried her prn Tylenol that was ordered and let her know about the other prn orders for her MUÑOZ in but she wants to try to treat her MUÑOZ with Tylenol at this time. She does state that her diarrhea improved with the Imodium. Review of Systems Review of Systems: All systems reviewed & are unremarkable except as noted in HPI & below Physical Exam Constitutional: WD/WN, vitals as above Respiratory: normal respiratory effort, lungs clear to auscultation Cardiovascular: RRR, no murmur, no edema Gastrointestinal (Abdomen): Inspection/Auscultation: abdomen normal to ins pection and normal bowel sounds Percussion/Palpation: + abdomen tender (diffuse ) Musculoskeletal: no cyanosis or clubbing, extremities motor strength 5/5 Skin: no rashes, warm and dry Results & Data Results & Data ([facility]) Vital Signs (Past 12 Hours) Vital Signs Temp Pulse Pulse Resp BP BP Pulse Ox 03/18/22 03:36 94 H 03/18/22 03:21 100 H 114/78 03/18/22 03:08 36.8 C 100 H 18 114/78 93 03/17/22 23:19 36.6 C 97 H 18 120/73 92 03/17/22 21:23 98 H 122/81 03/17/22 20:00 36.8 C 98 H 18 122/81 94 O2 Del Method 03/18/22 03:36 03/18/22 03:21 03/18/22 03:08 Room Air 03/17/22 23:19 Room Air 03/17/22 21:23 03/17/22 20:00 Room Air Resident Activity Tracking Resident Involvement: Resident Care Provided Care Provided: Adult Hospital Medicine
[2022-03-18] MEDS: ACETAMINOPHEN 1000 MG/100 ML IV IV PRN (08:09)
[2022-03-18] MEDS ORDERED: SODIUM CHLORIDE 0.65% NA SOLN 45 ML (OCEAN) NAE ONE (08:09)
[2022-03-18] MEDS ORDERED: SODIUM CHLORIDE 0.65% NA SOLN 45 ML (OCEAN) ONE (08:13)
[2022-03-18] MEDS: HEPARIN SOD 5,000 UNIT/0.5 ML VIAL SQ SCH ×2 (08:35→21:12)
--- NOTE | 2022-03-18 09:00 | Gastroenterology Progress Note ---
Date of Service March 18, 2022 Assessment & Plan (1) Pancolitis: Plan: 66 year old female w/ abd pain, nausea/vomiting and diarrhea since course of Bactrim C.diff x 2 negative, stool culture negative, CT abd/pelvis w signs of pancolitis, and contained perforation in the descending colon area. DDX: ischemic vs infectious vs inflammatory colitis. - Defer management of MUÑOZ and associated symptoms to primary service - Can continue clear liquid diet this AM - Appreciate general surgery management of contained perforation - Continue IV antibiotics - Imodium prn diarrhea given negative c.diff x 2 - OP CT to re-eval perforation in about 3 weeks' times - If resolved, will plan for colonoscopy eval in 4-6 week's - Please recall GI as needed Thank you for allowing us to participate in the care of this patient. Please call with any acute changes, questions or concerns. Please see addendum below with additional recommendation from my supervising physician. (2) Diarrhea: (3) Rectal bleeding: Admission and Anticipated Discharge Date Admission Date: March 15, 2022 Supervising Physician Co-Signing Physician Notes The patient presented with diarrhea, she was seen and evaluated in her room this afternoon notes having continued problems with diarrhea. Of note the patient is on Prolia for osteoporosis as an outpatient. The patient CT did show evidence of a contained perforation and diffuse thickening of the colon of unclear etiology. This could represent ischemic colitis or perhaps inflammatory changes related to use of a medication such as Prolia. Recommendations outpatient colonoscopy and upper endoscopy in 4 to 6 weeks Would suggest sending iron studies given history of anemia. Try use of Questran 4 g 1 time daily stop Prolia Please call with any questions or concerns, GI to resume coverage on Monday Subjective Pt was seen and evaluated, chart reviewed. Largest concern this AM is worsening of her MUÑOZ. She notes when this worsened this AM she had associated nausea. She is starting to have improvement of her nausea, vomiting and MUÑOZ with tylenol. Notes her abd pain is unchanged Persistent diarrhea. Tolerating clear liquids. Denies personal history of IBD Denies family history of IBD Symptoms started mid course of ABX. C.diff was negative as an OP and again as an IP Review of Systems Review of Systems: All systems reviewed & are unremarkable except as noted in HPI & below Physical Exam Constitutional: WD/WN, vitals as above Respiratory: normal respiratory effort; no respiratory distress and no labored breathing Cardiovascular: Rate/Rhythm: regular rate Gastrointestinal (Abdomen): Inspection/Auscultation: abdomen normal to inspection and normal bowel sounds Percussion/Palpation: + abdomen tender (flanks) and abdomen soft; no guarding and abdomen not rigid Skin: no rashes, warm and dry Results & Data ([facility]) Vital Signs (Past 12 Hours) Vital Signs Temp Pulse Pulse Resp BP BP Pulse Ox 03/18/22 08:42 100 H 128/82 03/18/22 07:22 36.9 C 100 H 16 128/82 93 03/18/22 03:36 94 H 03/18/22 03:21 100 H 114/78 03/18/22 03:08 36.8 C 100 H 18 114/78 93 03/17/22 23:19 36.6 C 97 H 18 120/73 92 03/17/22 21:23 98 H 122/81 O2 Del Method 03/18/22 08:42 03/18/22 07:22 Room Air 03/18/22 03:36 03/18/22 03:21 03/18/22 03:08 Room Air 03/17/22 23:19 Room Air 03/17/22 21:23 Laboratory Results 03/17/22 03/17/22 Range/Units 18:01 09:08 Hgb 9.0 L 8.8 L (12.0-16.0) g/dl Hct 27.4 L 26.4 L (34.1-44.9) %
[2022-03-18 09:17] LABS: Basophils # (auto) 0.05 K/uL (0-0.2); Basophils % (auto) 0.6 %; Eosinophils # (auto) 0.21 K/uL (0-0.50); Eosinophils % (auto) 2.3 %; Hematocrit (blood only) 28.5 % (34.1-44.9); Hemoglobin 9.5 g/dl (12.0-16.0); Immature Granulocytes # (auto) 0.04 K/uL (0.00-0.02); Immature Granulocytes % (auto) 0.4 %; Lymphocytes # (auto) 0.65 K/uL (1.2-3.4); Lymphocytes % (auto) 7.2 %; Mean Corpuscular Hemoglobin 30.4 pg (25.0-34.0); Mean Corpuscular Hgb Conc 33.3 g/dL (32.0-36.0); Mean Corpuscular Volume 91.3 fL (80.0-100.0); Mean Platelet Volume 9.2 fL (9.4-12.3); Monocytes % (auto) 4.4 %; Neutrophils # (auto) 7.65 K/uL (1.4-6.5); Neutrophils % (auto) 85.1 %; Platelet Count 199 K/uL (130-400); RDW Coefficient of Variation 12.3 % (11.5-14.5); RDW Standard Deviation 40.9 fL (36.4-46.3); Red Blood Count 3.12 M/uL (3.93-5.22)
--- NOTE | 2022-03-18 09:48 | Surgery Progress Note ---
Date of Service March 18, 2022 Assessment & Plan (1) Pancolitis: (2) Diarrhea: Plan afebrile leukocytosis resolved hemodynamically stable abdominal exam without rebound, peritonitis, or distention. pain stable diarrhea less frequent, c. diff negative Plan: Continue conservative measures continue IV fluids Continue IV antibiotics, should have total course of IV and oral antibiotics for 14 days given microperforation Continue clear liquids, can advance diet slowly to low fiber diet. If increased abdominal pain with advancing diet , would recommend low threshold for repeating CT scan encourage OOB to chair and ambulation continue medical management Dr. beth covering this weekend Dr. Alves has seen and examined pt, agrees with above. Admission and Anticipated Discharge Date Admission Date: March 15, 2022 Subjective having headache this am with nausea and one episode of vomiting tolerated clear liquids last evening diarrhea slowly improving, less frequent , took Imodium last night abdominal pain stable Physical Exam Constitutional: WD/WN, vitals as above cooperative and comfortable; no acute distress and not ill appearing Neck: normal visual inspection and trachea midline Respiratory: normal respiratory effort; no respiratory distress and no labored breathing Gastrointestinal (Abdomen): Inspection/Auscultation: abdomen normal to insp ection; abdomen not distended Percussion/Palpation: + abdomen tender (LLQ ) and abdomen soft; no guarding and abdomen not rigid Skin: no rashes, warm and dry Psychiatric: Orientation: alert and oriented x 3 Results & Data ([facility]) Vital Signs (Past 12 Hours) Vital Signs Temp Pulse Pulse Resp BP BP Pulse Ox 03/18/22 08:42 100 H 128/82 03/18/22 07:22 36.9 C 100 H 16 128/82 93 03/18/22 03:36 94 H 03/18/22 03:21 100 H 114/78 03/18/22 03:08 36.8 C 100 H 18 114/78 93 03/17/22 23:19 36.6 C 97 H 18 120/73 92 O2 Del Method 03/18/22 08:42 03/18/22 07:22 Room Air 03/18/22 03:36 03/18/22 03:21 03/18/22 03:08 Room Air 03/17/22 23:19 Room Air Laboratory Results 03/18/22 03/18/22 03/17/22 Range/Units 09:06 09:06 18:01 WBC 9.00 (4.8-10.8) K/ul RBC 3.12 L (3.93-5.22) M/uL Hgb 9.5 L 9.0 L (12.0-16.0) g/dl Hct 28.5 L 27.4 L (34.1-44.9) % MCV 91.3 (80.0-100.0) fL MCH 30.4 (25.0-34.0) pg MCHC 33.3 (32.0-36.0) g/dL RDW Std Deviation 40.9 (36.4-46.3) fL RDW Coeff of Ruchi 12.3 (11.5-14.5) % Plt Count 199 (130-400) K/uL MPV 9.2 L (9.4-12.3) fL Immature Gran % (Auto) 0.4 % Neut % (Auto) 85.1 % Lymph % (Auto) 7.2 % Edgar % (Auto) 4.4 % Eos % (Auto) 2.3 % Baso % (Auto) 0.6 % Neut # (Auto) 7.65 H (1.4-6.5) K/uL Lymph # (Auto) 0.65 L (1.2-3.4) K/uL Edgar # (Auto) 0.40 (0.24-0.82) K/uL Eos # (Auto) 0.21 (0-0.50) K/uL Baso # (Auto) 0.05 (0-0.2) K/uL Immature Gran # (Auto) 0.04 H (0.00-0.02) K/uL Sodium Pending Potassium Pending Chloride Pending Carbon Dioxide Pending Anion Gap Pending BUN Pending Creatinine Pending Est Cr Clr Drug Dosing Pending Est GFR ( Amer) Pending Est GFR (Non-Af Amer) Pending BUN/Creatinine Ratio Pending Glucose Pending Calcium Pending Total Bilirubin Pending AST Pending ALT Pending Alkaline Phosphatase Pending Total Protein Pending Albumin Pending Globulin Pending Albumin/Globulin Ratio Pending
[2022-03-18 10:13] LABS: Albumin Globulin Ratio 1.2 (0.9-2); Bilirubin,Total 0.8 mg/dl (0.2-1.0); Calcium 8.1 mg/dl (8.5-10.1); Creatinine Clr Calc Pharmacy 65.2 ml/min; Est GFR (African American) 112.7 ml/min; Est GFR (Non-African American) 97.3 ml/min; Globulin 2.5 gm/dl (2.5-4.0); Potassium 3.8 mmol/L (3.5-5.1); Total Protein 5.5 gm/dl (6.0-8.3)
[2022-03-18] MEDS: PANTOprazole 40 MG in SYRINGE 0 ML IV SCH (11:17)
[2022-03-18] MEDS: LOPERAMIDE HCL 2 MG CAP PO PRN (12:00)
[2022-03-18] MEDS: POTASSIUM CHLORIDE 20 MEQ in LACTATED RINGER'S 1,000 ML IV SCH (13:38)
[2022-03-18 16:12] LABS: Ferritin 271.3 ng/ml (8-388)
[2022-03-18] MEDS ORDERED: SODIUM CHLORIDE 0.65% NA SOLN 45 ML (OCEAN) NAE PRN (17:00)
[2022-03-18] MEDS: ONDANSETRON INJ 2 MG/ML 2 ML VIAL IV PRN (19:45)
[2022-03-18] MEDS ORDERED: MELATONIN 3 MG TAB PO ONE (20:18)
[2022-03-18] MEDS: METOPROLOL SUCC 25MG EXT REL TAB PO SCH (22:04)
[2022-03-19] MEDS ORDERED: ACETAMINOPHEN 1,000 MG/100 ML VIAL IV STA (03:58)
[2022-03-19] MEDS: CEFEPIME 2,000 MG in SYRINGE 0 ML IV SCH ×3 (04:33→23:41)
[2022-03-19] MEDS: metroNIDAZOLE 500 MG/100 ML BAG IV SCH ×3 (04:55→19:50)
--- NOTE | 2022-03-19 07:19 | Surgery Progress Note ---
Date of Service March 19, 2022 Assessment & Plan (1) Pancolitis: Plan: Continue IV antibiotics I do think we could try some limited full liquids to see if she tolerates this a little better Her abdomen is very soft which is a good sign Continue supportive care Admission and Anticipated Discharge Date Admission Date: March 15, 2022 Subjective Patient's vital signs are stable She apparently had some emesis with clear liquids She thinks she may tolerate a full liquid diet in a limited amount She is moving her bowels-I believe less frequent Physical Exam Physical Exam: Patient is awake and responsive in no distress She does complain of a headache Her abdomen is flat and soft with minimal tenderness Results & Data ([facility]) Vital Signs (Past 12 Hours) Vital Signs Temp Pulse Pulse Resp BP Pulse Ox O2 Del Method 03/19/22 04:25 100 H 03/19/22 03:17 36.7 C 97 H 18 104/71 92 Room Air 03/18/22 23:58 37.0 C 100 H 20 135/84 93 Room Air 03/18/22 20:08 36.9 C 99 H 18 130/97 96 Room Air PG Care Time/CCT Total # of Minutes Spent Total Time Spent with Patient: Total time spent is greater than 50% in coordination of care (as documented) at patient's floor/unit and/or counseling patient: Coding Level of Care Code 92720 SUB INP/OBS CARE 03/30MIN Diagnoses Pancolitis K51.00
--- NOTE | 2022-03-19 07:20 | Hospitalist Progress Note ---
Date of Service March 19, 2022 Assessment & Plan (1) Pancolitis: (2) Diarrhea: (3) Rectal bleeding: (4) Hypokalemia: Plan #Sepsis in the setting of pancolitis with colon perforation #Pancolitis - 3 months of chronic nonbloody diarrhea w/ acute, diffuse abdominal cramping, n/v, BRBPR at home on 03/14 and then on 03/15 morning. - WBC 12, lactate 2.3, ESR 30, CRP normal - CT A/P on 03/15: Moderate diffuse thickening of the colonic wall consistent with a pancolitis. There is extraluminal gas of the descending colon consistent with a contained perforation. Therefore, ischemic colitis would be the diagnosis of exclusion. - Neg for c dif as outpatient 12/28 - C diff and Stool studies negative on 03/15. - LR 1000 cc bolus in ED; continue LRs @ 75 cc/hr - Will continue on cefepime and Flagyl for perforation. - On Imodium 2mg TID prn for Diarrhea. - General surgery consulted, recommending continuing abx, fluids, and to continue with bowel rest. No surgical intervention needed at this time. - Consult GI - continue advancing diet as tolerated - CT re-eval in 3 weeks, then possibly colonoscopy in 4-6 weeks. - iron studies an iron of 23 and a ferritin of 271. - Transglutaminase IgA testing pending. - stop prolia - consider Questran for diarrhea - Will continue to advance diet as tolerated. Headache - Most likely 2/2 not eating, dehydration, and should improve once patient starts to eat - Acetaminophen IV 1,000mg Q8H prn - Tramadol 25mg PO ordered once at 03/17, Though pt refused due to worry that it would upset her stomach. - Patient does not want to try any other medications for her MUÑOZ at this time and rather try acetaminophen. - Patient has been having trouble with sleeping. Given a dose of melatonin on 03/18 which helped with her sleeping. - Will order melatonin 3mg prn for trouble with sleeping. #GIB -possibly sec to ischemic colitis -Patient c/o 2 episodes of blood on her stool. -Nursing notes blood in her stool on the morning of 03/16. -Hemoglobin 13.5 on 03/15, Hemoglobin 8.8 on 03/17, 9.6 on 03/19 -Patient is type and crossed and consented. Consent form filled out. -Threshold for transfusion is 7. -h/h has been stable -Will monitor with AM labs. #Mitral valve prolapse s/p MV replacement - s/p MV replacement with annuloplasty ring and tricuspid valve annuloplasty in November - Complicated by brief atrial fibrillation in cardiogenic shock requiring ECMO and nitrous oxide for support. - No longer on rate/rhythm control or AC for a fib. 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 - Doing well per recent cardiology note 02/18 - Continue metoprolol, have converted back to PO now that patient is advancing diet. #Osteoporosis - Prolia injections q6 months. - Will D/C Prolia at this time per recommendations from GI. #GERD (gastroesophageal reflux disease) - Continue PPI, switch lansoprazole to Protonix per hospital formulary, ordered IV due to previously NPO, Will consider switching back to PO tomorrow. - Isolated hx of duodenal ulcer at 9 years old, no surgery, no recurrent issues. #Anxiety -Patient most likely has some undiagnosed anxiety that may be stemming from MVP surgery. -Outpatient workup and consider SSRI. Fluids: LR @ 60 Nutrition: full liquid -->advancing diet as tolerated Code status: full code Dispo: PCU/tele Thank you for allowing me to participate in the care of your patient. -Dr. Ganesh Jane PGY1 Admission and Anticipated Discharge Date Admission Date: March 15, 2022 Supervising Physician Co-Signing Physician Notes Resident Physician Supervision Note: I independently interviewed and examined the patient and verified the su history and physical, reviewed labs and image studies and agree with resident findings and care plan. Subjective Patient was seen beside today. She reports that her abdominal pain is less sore. Her last BM was in the middle of the night, which was diarrhea again. She states she still has not had a normal BM in months. She reports that she had some N/V last night that improved with Zofran. She also had some trouble with sleeping overnight and was given melatonin which helped. She still c/o MUÑOZ but continues to only want to take Tylenol for the pain. Review of Systems Review of Systems: All systems reviewed & are unremarkable except as noted in HPI & below Physical Exam Constitutional: WD/WN, vitals as above Respiratory: normal respiratory effort, lungs clear to auscultation Cardiovascular: RRR, no murmur, no edema Gastrointestinal (Abdomen): Inspection/Auscultation: abdomen normal to inspection and normal bowel sounds Percussion/Palpation: + abdomen tender (diffuse ) Musculoskeletal: no cyanosis or clubbing, extremities motor strength 5/5 Skin: no rashes, warm and dry Results & Data Results & Data ([facility]) Vital Signs (Past 12 Hours) Vital Signs Temp Pulse Pulse Resp BP Pulse Ox O2 Del Method 03/19/22 04:25 100 H 03/19/22 03:17 36.7 C 97 H 18 104/71 92 Room Air 03/18/22 23:58 37.0 C 100 H 20 135/84 93 Room Air 03/18/22 20:08 36.9 C 99 H 18 130/97 96 Room Air Resident Activity Tracking Resident Involvement: Resident Care Provided Care Provided: Adult Hospital Medicine
[2022-03-19 08:11] LABS: Basophils # (auto) 0.03 K/uL (0-0.2); Basophils % (auto) 0.4 %; Eosinophils # (auto) 0.46 K/uL (0-0.50); Eosinophils % (auto) 6.6 %; Hematocrit (blood only) 29.1 % (34.1-44.9); Hemoglobin 9.6 g/dl (12.0-16.0); Immature Granulocytes # (auto) 0.03 K/uL (0.00-0.02); Immature Granulocytes % (auto) 0.4 %; Lymphocytes # (auto) 0.98 K/uL (1.2-3.4); Lymphocytes % (auto) 14.1 %; Mean Corpuscular Hemoglobin 30.3 pg (25.0-34.0); Mean Corpuscular Volume 91.8 fL (80.0-100.0); Mean Platelet Volume 9.7 fL (9.4-12.3); Monocytes # (auto) 0.54 K/uL (0.24-0.82); Monocytes % (auto) 7.8 %; Neutrophils # (auto) 4.91 K/uL (1.4-6.5); Neutrophils % (auto) 70.7 %; Platelet Count 237 K/uL (130-400); RDW Coefficient of Variation 12.2 % (11.5-14.5); RDW Standard Deviation 40.9 fL (36.4-46.3); Red Blood Count 3.17 M/uL (3.93-5.22); White Blood Count 6.95 K/ul (4.8-10.8)
[2022-03-19 08:47] LABS: BUN Creatinine Ratio 10.9 (10-20); Calcium 8.1 mg/dl (8.5-10.1); Creatinine Clr Calc Pharmacy 66.1 ml/min; Est GFR (African American) 108.5 ml/min; Est GFR (Non-African American) 93.6 ml/min; Potassium 3.5 mmol/L (3.5-5.1)
[2022-03-19] MEDS: METOPROLOL SUCC 25MG EXT REL TAB PO SCH ×2 (09:12→19:50)
[2022-03-19] MEDS: HEPARIN SOD 5,000 UNIT/0.5 ML VIAL SQ SCH ×2 (09:12→19:49)
[2022-03-19] MEDS: PANTOprazole 40 MG in SYRINGE 0 ML IV SCH (11:24)
[2022-03-19] MEDS: ACETAMINOPHEN 1,000 MG/100 ML VIAL IV PRN ×2 (12:19→19:29)
[2022-03-19] MEDS ORDERED: MELATONIN 3 MG TAB PO PRN (12:29)
[2022-03-19] MEDS: ONDANSETRON INJ 2 MG/ML 2 ML VIAL IV PRN ×2 (15:59→23:14)
[2022-03-20] MEDS: metroNIDAZOLE 500 MG/100 ML BAG IV SCH ×3 (06:45→21:47)
--- NOTE | 2022-03-20 06:50 | Hospitalist Progress Note ---
Date of Service March 20, 2022 Assessment & Plan (1) Pancolitis: (2) Diarrhea: (3) Rectal bleeding: (4) Hypokalemia: Plan 03/20: as below. Patient doing well today. Continuing with IV abx, full liquids diet, and prn zofran for nausea. #Sepsis in the setting of pancolitis with colon perforation #Pancolitis - 3 months of chronic nonbloody diarrhea w/ acute, diffuse abdominal cramping, n/v, BRBPR at home on 03/14 and then on 03/15 morning. - WBC 12, lactate 2.3, ESR 30, CRP normal - CT A/P on 03/15: Moderate diffuse thickening of the colonic wall consistent with a pancolitis. There is extraluminal gas of the descending colon consistent with a contained perforation. Therefore, ischemic colitis would be the diagnosis of exclusion. - Neg for c dif as outpatient 12/28 - C diff and Stool studies negative on 03/15. - Will continue on cefepime and Flagyl for perforation. - On Imodium 2mg TID prn for Diarrhea. Given two doses so far. Last dose on 03/18. Has not had an episode of diarrhea since then. Though patient states that she has not had a normal BM recently. - GI - CT re-eval in 3 weeks, then possibly colonoscopy in 4-6 weeks. - iron studies an iron of 23 and a ferritin of 271. - Transglutaminase IgA testing pending. - stop prolia - Will continue on full liquids today and plan to continue advancing diet as needed. - To consider switching to oral abx in am - patient anxious about having side effects from oral abx - consider inpatient monitoring for 24 hrs after switching Headache - Most likely 2/2 not eating, dehydration, and should improve once patient starts to eat - Acetaminophen IV 1,000mg Q8H prn - Tramadol 25mg PO ordered once at 03/17, Though pt refused due to worry that it would upset her stomach. - Patient does not want to try any other medications for her MUÑOZ at this time and rather try acetaminophen. - Patient has been having trouble with sleeping. Given a dose of melatonin on 03/18 which helped with her sleeping. - melatonin 3mg prn for trouble with sleeping. #GIB -possibly sec to ischemic colitis -Patient c/o 2 episodes of blood on her stool. -no further bleeding and h/h staying stable #Mitral valve prolapse s/p MV replacement - s/p MV replacement with annuloplasty ring and tricuspid valve annuloplasty in November - Complicated by brief atrial fibrillation in cardiogenic shock requiring ECMO and nitrous oxide for support. - No longer on rate/rhythm control or AC for a fib. 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 - Doing well per recent cardiology note 02/18 - Continue metoprolol, have converted back to PO now that patient is advancing diet. #Osteoporosis - Prolia injections q6 months. - Will D/C Prolia at this time per recommendations from GI. #GERD (gastroesophageal reflux disease) - Continue PPI, switch lansoprazole to Protonix per hospital formulary, ordered IV due to previously NPO, Will consider switching back to PO tomorrow. - Isolated hx of duodenal ulcer at 9 years old, no surgery, no recurrent issues. #Anxiety -Patient most likely has some undiagnosed anxiety that may be stemming from MVP surgery. -Outpatient workup and consider SSRI. Fluids: LR @ 60 Nutrition: full liquid -->advancing diet as tolerated Code status: full code Dispo: PCU/tele Thank you for allowing me to participate in the care of your patient. -Dr. Ganesh Jane PGY1 Admission and Anticipated Discharge Date Admission Date: March 15, 2022 Supervising Physician Co-Signing Physician Notes Resident Physician Supervision Note: I independently interviewed and examined the patient and verified the su history and physical, reviewed labs and image studies and agree with resident findings and care plan. Subjective Patient was seen beside this AM. She is tolerating her full liquid diet. She continues to have nausea that is well controlled with Zofran. She has not had a BM recently and has received one dose of imodium on 03/18. Review of Systems Review of Systems: All systems reviewed & are unremarkable except as noted in HPI & below Physical Exam Constitutional: WD/WN, vitals as above Respiratory: normal respiratory effort, lungs clear to auscultation Cardiovascular: RRR, no murmur, no edema Gastrointestinal (Abdomen): normal bowel sounds, soft, nontender, no hepatosplenomegaly Musculoskeletal: no cyanosis or clubbing, extremities motor strength 5/5 Skin: no rashes, warm and dry Results & Data Results & Data ([facility]) Vital Signs (Past 12 Hours) Vital Signs Temp Pulse Pulse Resp BP Pulse Ox O2 Del Method 03/20/22 06:32 91 H 03/20/22 03:00 36.5 C 83 16 122/72 96 Room Air 03/19/22 23:00 36.7 C 81 17 121/82 96 Room Air 03/19/22 19:00 37.1 C 94 H 17 120/78 96 Room Air Resident Activity Tracking Resident Involvement: Resident Care Provided Care Provided: Adult Hospital Medicine
--- NOTE | 2022-03-20 07:04 | Surgery Progress Note ---
Date of Service March 20, 2022 Assessment & Plan (1) Pancolitis: Plan: We will continue full liquids today Limit Imodium Continue IV antibiotics Medications may be adding to her nausea She seems to be very stable and making some progress Admission and Anticipated Discharge Date Admission Date: March 15, 2022 Subjective Patient's vital signs are stable She did have some full liquids which she tolerated She has not had significant bowel movements-it appears she only received 1 dose of Imodium on 03/18/22-none since She does have nausea Review of Systems Review of Systems: All systems reviewed & are unremarkable except as noted in HPI & below Physical Exam Physical Exam: Patient is awake and alert she is in no distress Her abdomen is soft with minimal tenderness Her extremities are warm Results & Data ([facility]) Vital Signs (Past 12 Hours) Vital Signs Temp Pulse Pulse Resp BP Pulse Ox O2 Del Method 03/20/22 06:32 91 H 03/20/22 03:00 36.5 C 83 16 122/72 96 Room Air 03/19/22 23:00 36.7 C 81 17 121/82 96 Room Air PG Care Time/CCT Total # of Minutes Spent Total Time Spent with Patient: Total time spent is greater than 50% in coordination of care (as documented) at patient's floor/unit and/or counseling patient: Coding Level of Care Code None Diagnoses Pancolitis K51.00
[2022-03-20 07:08] LABS: Hematocrit (blood only) 29.9 % (34.1-44.9); Hemoglobin 9.9 g/dl (12.0-16.0); Mean Corpuscular Hemoglobin 29.8 pg (25.0-34.0); Mean Corpuscular Hgb Conc 33.1 g/dL (32.0-36.0); Mean Corpuscular Volume 90.1 fL (80.0-100.0); Mean Platelet Volume 9.3 fL (9.4-12.3); Platelet Count 262 K/uL (130-400); RDW Coefficient of Variation 11.9 % (11.5-14.5); RDW Standard Deviation 38.4 fL (36.4-46.3); Red Blood Count 3.32 M/uL (3.93-5.22); White Blood Count 6.23 K/ul (4.8-10.8)
[2022-03-20 07:32] LABS: Albumin Globulin Ratio 1.1 (0.9-2); Albumin Level 2.8 gm/dl (3.4-5.0); BUN Creatinine Ratio 13.2 (10-20); Bilirubin,Total 0.7 mg/dl (0.2-1.0); Creatinine Clr Calc Pharmacy 62.2 ml/min; Est GFR (African American) 106.4 ml/min; Est GFR (Non-African American) 91.8 ml/min; Globulin 2.5 gm/dl (2.5-4.0); Potassium 3.5 mmol/L (3.5-5.1); Total Protein 5.3 gm/dl (6.0-8.3)
[2022-03-20 07:34] LABS: Basophils # (auto) 0.08 K/uL (0-0.2); Basophils % (auto) 1.3 %; Eosinophils # (auto) 0.82 K/uL (0-0.50); Eosinophils % (auto) 13.2 %; Immature Granulocytes # (auto) 0.06 K/uL (0.00-0.02); Lymphocytes # (auto) 1.33 K/uL (1.2-3.4); Lymphocytes % (auto) 21.3 %; Monocytes % (auto) 9.6 %; Neutrophils # (auto) 3.34 K/uL (1.4-6.5); Neutrophils % (auto) 53.6 %
[2022-03-20] MEDS: CEFEPIME 2,000 MG in SYRINGE 0 ML IV SCH (10:49)
[2022-03-20] MEDS: METOPROLOL SUCC 25MG EXT REL TAB PO SCH ×2 (10:49→21:48)
[2022-03-20] MEDS: PANTOprazole 40 MG in SYRINGE 0 ML IV SCH (10:49)
[2022-03-20] MEDS: HEPARIN SOD 5,000 UNIT/0.5 ML VIAL SQ SCH ×2 (10:50→21:45)
[2022-03-20] MEDS ORDERED: METOPROLOL TARTRATE 1 MG/ML VIAL IV STA (15:01)
--- NOTE | 2022-03-20 15:09 | Communication Note ---
Date of Service: March 20, 2022 called by nursing for patient transitioning to atrial tachycardia. patient reported strong heart beat. no shortness of breath or chest pain On the monitor - HR of 134 - narrow complex. comfortable in bed. reviewed last cardiology note - h/o perioperative a fib - was on amiodarone. d/lizzie later. EKG stat - SVT - 130s. systolic BP in 110s. no fever. RR 18. attempted vagal maneuver - no change discussed with patient about adenosine - received 6mg dose followed 3 min by 12 mg dose. converted to sinus rhythm. She is already on metroplol succinate 12.5mgs bid cardio consult added for further recommendation. spoke to Dr. Ashley - will add metoprolol tartarate 12.5mgs bid and if tolerates - switch to 25mg bid succinate total critical care time spent 45 min
[2022-03-20] MEDS ORDERED: ADENOSINE IV SOLN 3 MG/ML 2 ML VIAL IV STA (15:20)
[2022-03-20] MEDS ORDERED: ADENOSINE IV SOLN 3 MG/ML 2 ML VIAL IV ONE (15:23)
[2022-03-20] MEDS: METOPROLOL TARTRATE 25 MG TAB PO SCH (17:08)
[2022-03-21] MEDS: CEFEPIME 2,000 MG in SYRINGE 0 ML IV SCH ×2 (02:30→13:15)
[2022-03-21] MEDS: metroNIDAZOLE 500 MG/100 ML BAG IV SCH ×2 (05:30→13:10)
--- NOTE | 2022-03-21 07:01 | Hospitalist Progress Note ---
Date of Service March 21, 2022 Assessment & Plan (1) Pancolitis: (2) Diarrhea: (3) Rectal bleeding: (4) Hypokalemia: Plan #Sepsis in the setting of pancolitis with colon perforation #Pancolitis - 3 months of chronic nonbloody diarrhea w/ acute, diffuse abdominal cramping, n/v, BRBPR at home on 03/14 and then on 03/15 morning. - WBC 12, lactate 2.3, ESR 30, CRP normal - CT A/P on 03/15: Moderate diffuse thickening of the colonic wall consistent with a pancolitis. There is extraluminal gas of the descending colon consistent with a contained perforation. Therefore, ischemic colitis would be the diagnosis of exclusion. - Neg for c dif as outpatient 12/28 - C diff and Stool studies negative on 03/15. - Was on cefepime and Flagyl for perforation. Will switch to oral abx. Started PO Flagyl 500mg TID and Cefdinir 300mg BID on 03/21. Will need to continue on abx until CT scan. - On Imodium 2mg TID prn for Diarrhea. Given two doses so far. Last dose on 03/18. Has not had an episode of diarrhea since then. Though patient states that she has not had a normal BM recently. - GI - CT re-eval in 3 weeks, then possibly colonoscopy in 4-6 weeks. - iron studies an iron of 23 and a ferritin of 271. - Transglutaminase IgA testing pending. - stop Prolia - Will continue on full liquids today and plan to continue advancing diet. -GI and surgery signed off at this time. -03/21 update: will see how patient does with transitioning to oral abx and advancing diet. Most likely can be D/C tomorrow. #SVT -Patient was found to be in SVT with HR of 134 on 03/20 without any SOB or CP. Needed adenosine which converted her to sinus rhythm. -No other issues post adenosine -Cardiology consulted and recommend to increase metoprolol to 25mg BID -ECHO showed EF 55-60, mild concentric LVH, mild MR, and myxomatous Mitral valve s/p annuloplasty ring. -No other changes needed at this time. Will continue to monitor on tele while admitted. -Should f/u with Dr. Merritt after discharge. -K repleted. #Headache - Most likely 2/2 not eating, dehydration, and should improve once patient starts to eat - Acetaminophen IV 1,000mg Q8H prn - Tramadol 25mg PO ordered once at 03/17, Though pt refused due to worry that it would upset her stomach. - Patient does not want to try any other medications for her MUÑOZ at this time and rather try acetaminophen. - Patient has been having trouble with sleeping. Given a dose of melatonin on 03/18 which helped with her sleeping. - melatonin 3mg prn for trouble with sleeping. #GIB -possibly sec to ischemic colitis -Patient c/o 2 episodes of blood on her stool. -no further bleeding and h/h staying stable -f/u CBC in one week after discharge. #Mitral valve prolapse s/p MV replacement - s/p MV replacement with annuloplasty ring and tricuspid valve annuloplasty in November - Complicated by brief atrial fibrillation in cardiogenic shock requiring ECMO and nitrous oxide for support. - No longer on rate/rhythm control or AC for a fib. 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 - Doing well per recent cardiology note 02/18 - Continue metoprolol, increased dose due to SVT as above. #Osteoporosis - Prolia injections q6 months. - Will D/C Prolia at this time per recommendations from GI. #GERD (gastroesophageal reflux disease) - Continue PPI, switch lansoprazole to Protonix per hospital formulary, ordered IV due to previously NPO, Will consider switching back to PO tomorrow. - Isolated hx of duodenal ulcer at 9 years old, no surgery, no recurrent issues. #Anxiety -Patient most likely has some undiagnosed anxiety that may be stemming from MVP surgery. -Outpatient workup and consider SSRI. Fluids: LR @ 60 Nutrition: full liquid -->advancing diet as tolerated Code status: full code Dispo: PCU/tele Thank you for allowing me to participate in the care of your patient. -Dr. Ganesh Jane PGY1 Admission and Anticipated Discharge Date Admission Date: March 15, 2022 Supervising Physician Co-Signing Physician Notes I personally examined the patient and verified all su points of history and exam, discussed case, and agree with decision making with Dr Buck White feels better than when she first came in. Still hurts some. Still some diarrhea. Extensive discussions on working diagnoses and plan. Vitals noted, in general she is awake and alert pleasantly anxious no distress. HEENT normocephalic atraumatic mucous membranes moist. Breathing unlabored no accessory muscle use good effort. Abdomen is soft nondistended minimal left- sided tenderness no guarding rebound or rigidity no masses organomegaly. Extremities without cyanosis or clubbing. Neuro without focal deficits. Colitis with contained perforationcontinue antibiotics, at this point tolerating p.o. well, appears to be safe to switch to p.o. antibiotics and close follow-up. Repeat CT in a few weeks, colonoscopy in about 4 to 6 weeks. As far as her subacute/chronic diarrhea, it sounds quite consistent with non-C. diff but still antibiotic associated diarrhea upsetting her normal gut floraparticularly given that she was on approximately 4 different courses of antibiotics over the roughly 6 weeks prior to the onset of her diarrhea. Otherwise as above Subjective Patient was seen bedside this AM. She continues to c/o some diarrhea this morning. ab pain is improving. No other issues or concerns at this time. Review of Systems Review of Systems: All systems reviewed & are unremarkable except as noted in HPI & below Physical Exam Constitutional: WD/WN, vitals as above comfortable; no acute distress Respiratory: normal respiratory effort, lungs clear to auscultation Cardiovascular: RRR, no murmur, no edema Gastrointestinal (Abdomen): Inspection/Auscultation: abdomen normal to inspection; abdomen not distended Percussion/Palpation: abdomen soft; abdomen not rigid and abdomen not firm Musculoskeletal: no cyanosis or clubbing, extremities motor strength 5/5 Skin: no rashes, warm and dry Psychiatric: A+Ox3, euthymic affect Results & Data Results & Data ([facility]) Vital Signs (Past 12 Hours) Vital Signs Temp Pulse Pulse Resp BP Pulse Ox O2 Del Method 03/21/22 05:20 36.9 C 90 18 122/78 94 Room Air 03/21/22 01:02 97 H 03/20/22 23:00 36.7 C 97 H 18 102/69 93 Room Air Resident Activity Tracking Resident Involvement: Resident Care Provided Care Provided: Adult Hospital Medicine
[2022-03-21] MEDS: HEPARIN SOD 5,000 UNIT/0.5 ML VIAL SQ SCH ×2 (07:55→20:40)
[2022-03-21] MEDS: METOPROLOL TARTRATE 25 MG TAB PO SCH ×2 (09:06→20:40)
[2022-03-21] MEDS: METOPROLOL SUCC 25MG EXT REL TAB PO SCH (09:06)
--- NOTE | 2022-03-21 09:09 | Gastroenterology Progress Note ---
Date of Service March 21, 2022 Assessment & Plan (1) Pancolitis: Plan: 66 year old female w/ abd pain, nausea/vomiting and diarrhea since course of Bactrim C.diff x 2 negative, stool culture negative, CT abd/pelvis w signs of pancolitis, and contained perforation in the descending colon area. Pain is improving, diarrhea improves with Imodium, however, does not want to rely on this. - Defer management of MUÑOZ and associated symptoms to primary service - Appreciate general surgery management of contained perforation - Continue IV antibiotics - Imodium prn diarrhea given negative c.diff x 2 - Can trial Questran once daily - OP CT to re-eval perforation in about 3 weeks' times - If resolved, will plan for colonoscopy eval in 4-6 week's Please recall GI as needed. Will sign off. Thank you for allowing us to participate in the care of this patient. Please call with any acute changes, questions or concerns. Please see addendum below with additional recommendation from my supervising physician. (2) Diarrhea: (3) Rectal bleeding: Admission and Anticipated Discharge Date Admission Date: March 15, 2022 Supervising Physician Co-Signing Physician Notes Late entry: Patient was seen and examined on 03/21 with BEATRIZ Nash whose note reflects our findings and plan. Subjective Pt was seen and evaluated, chart reviewed. Notes her pain is improving. Less severe when occurs. She took Imodium x 2. Does not want to rely on this snf. Review of Systems Review of Systems: All systems reviewed & are unremarkable except as noted in HPI & below Physical Exam Constitutional: WD/WN, vitals as above Respiratory: normal respiratory effort, lungs clear to auscultation Cardiovascular: Rate/Rhythm: + tachycardic Gastrointestinal (Abdomen): normal bowel sounds, soft, nontender, no hepatosplenomegaly Skin: no rashes, warm and dry Results & Data ([facility]) Vital Signs (Past 12 Hours) Vital Signs Temp Pulse Pulse Resp BP Pulse Ox O2 Del Method 03/21/22 07:22 36.8 C 93 H 17 123/77 95 Room Air 03/21/22 05:20 36.9 C 90 18 122/78 94 Room Air 03/21/22 01:02 97 H 03/20/22 23:00 36.7 C 97 H 18 102/69 93 Room Air Laboratory Results 03/21/22 Range/Units 08:24 Sodium Pending Potassium Pending Chloride Pending Carbon Dioxide Pending Anion Gap Pending BUN Pending Creatinine Pending Est Cr Clr Drug Dosing Pending Est GFR ( Amer) Pending Est GFR (Non-Af Amer) Pending BUN/Creatinine Ratio Pending Glucose Pending Calcium Pending Magnesium Pending
--- NOTE | 2022-03-21 09:32 | Surgery Progress Note ---
Date of Service March 21, 2022 Assessment & Plan (1) Pancolitis: Plan: We will continue full liquids Limit Imodium Continue IV antibiotics She seems to be very stable and making progress We will sign off for now, call with any questions or concerns. Admission and Anticipated Discharge Date Admission Date: March 15, 2022 Subjective Tolerating full liquids. Feeling a bit better. Minimal pain. Still has some diarrhea off Imodium. Physical Exam Constitutional: WD/WN, vitals as above comfortable; no acute distress Gastrointestinal (Abdomen): Inspection/Auscultation: abdomen normal to inspection; abdomen not distended Percussion/Palpation: abdomen soft; abdomen not rigid and abdomen not firm Skin: no rashes, warm and dry Psychiatric: A+Ox3, euthymic affect Results & Data ([facility]) Vital Signs (Past 12 Hours) Vital Signs Temp Pulse Pulse Resp BP Pulse Ox O2 Del Method 03/21/22 07:22 36.8 C 93 H 17 123/77 95 Room Air 03/21/22 05:20 36.9 C 90 18 122/78 94 Room Air 03/21/22 01:02 97 H 03/20/22 23:00 36.7 C 97 H 18 102/69 93 Room Air
[2022-03-21 09:37] LABS: BUN Creatinine Ratio 9.9 (10-20); Calcium 8.3 mg/dl (8.5-10.1); Creatinine Clr Calc Pharmacy 65.4 ml/min; Est GFR (African American) 103.6 ml/min; Est GFR (Non-African American) 89.4 ml/min; Magnesium 1.9 mg/dl (1.7-2.4); Potassium 3.2 mmol/L (3.5-5.1)
[2022-03-21] MEDS: PANTOprazole 40 MG in SYRINGE 0 ML IV SCH (13:09)
--- NOTE | 2022-03-21 14:25 | Electrocardiogram Report ---
Test Reason : Blood Pressure : / mmHG Vent. Rate : 131 BPM Atrial Rate : 136 BPM P-R Int : 000 ms QRS Dur : 096 ms QT Int : 340 ms P-R-T Axes : 000 001 175 degrees QTc Int : 502 ms Supraventricular tachycardia Low voltage QRS Nonspecific ST and T wave abnormality Abnormal ECG When compared with ECG of 16-MAR-2022 20:32, Supraventricular tachycardia has replaced Sinus rhythm Confirmed by Abbe Hayes ([id number]) on 03/21/2022 2:25:17 PM Referred By: REFERRED SELF Confirmed By:Abbe Hayes
--- NOTE | 2022-03-21 14:27 | Electrocardiogram Report ---
Test Reason : Blood Pressure : / mmHG Vent. Rate : 104 BPM Atrial Rate : 104 BPM P-R Int : 146 ms QRS Dur : 086 ms QT Int : 352 ms P-R-T Axes : 067 -09 -55 degrees QTc Int : 462 ms Sinus tachycardia Septal infarct , age undetermined Nonspecific ST and T wave abnormality Abnormal ECG When compared with ECG of 20-MAR-2022 15:10, Septal infarct is now Present Nonspecific T wave abnormality has replaced inverted T waves in Lateral leads Sinus rhythm has replaced Supraventricular tachycardia Confirmed by Abbe Hayes ([id number] on 03/21/2022 2:26:47 PM Referred By: REFERRED SELF Confirmed By:Abbe Hayes
--- NOTE | 2022-03-21 14:48 | XCELERA ---
[id number]
--- NOTE | 2022-03-21 14:49 | Cardiology Consultation ---
Date of Consultation March 21, 2022 Assessment & Plan (1) SVT (supraventricular tachycardia): (2) S/P mitral valve repair: (3) S/P tricuspid valve repair: (4) Mitral valve prolapse: (5) Hypokalemia: (6) Mitral regurgitation: Plan ASSESSMENT/PLAN: 1. SVT: Terminated with adenosine administration by hospitalist service on 03/20/2022. Has had similar symptoms for the past several years. Discussed the diagnosis. For now, increase metoprolol to 25 mg twice daily. Recommend that she follow-up upon discharge with her garde manger/bomb squad officer, Dr. Merritt. We discussed potential treatment strategies such as SVT ablation. Could also consider antiarrhythmic therapy for significant recurrence. Replete potassium, but will defer potassium repletion to hospitalist service. Echo ordered. 2. Mitral valve prolapse with regurgitation s/p MV repair: Echo ordered. She inquired auscultation findings and was concerned about the murmur. We discussed that murmur is common following valve surgery and expected some degree of mitral regurgitation remains. She was reassured. SBE prophylaxis for dental procedures. 3. Tricuspid regurgitation s/p repair: Echo ordered as above. 4. Hypokalemia: As per primary service. 5. Pancolitis: As per GI/surgery/primary hospitalist service. 6. Disposition: Cardiology will sign off at this time. Please call for recurrent arrhythmia or other cardiology concerns. Dr. Merritt's office was contacted to arrange discharge follow-up in the next 1 to 2 weeks to further discuss her arrhythmia. Upon her request, will send [place] [facility] [place]. Patient care communicated w ith primary hospitalist team, Dr. Jane. Today's visit was 78 minutes in duration, which includes reviewing of multiple records as noted above, reviewing of imaging/telemetry/ECG, chart review, face-t o-face time, counseling patient, coordinating care, and documentation. Thank you for allowing me to participate in the care of your patient. Please call for any other questions or concerns. Sincerely, Malcolm Hayes M.D. History of Present Illness Reason for Consultation: "atrial tachycardia" Requesting Physician: Dr. Amato Attending Physician: Kilo Daniel DO History of Present Illness Ms. Liu is a pleasant 66-year-old female with a history significant for mitral valve prolapse s/p mitral valve repair (40 mm annuloplasty ring), s/p tricuspid valve annuloplasty ring (30 mm), gastric ulcer, osteoporosis, anxiety, and GERD. Her primary garde manger is Dr. Merritt. She has had the following studies/procedures: 1. [place]iac [place] [facility] [place]. 2. Mitral and tricuspid annuloplasty rings 11[place]02/2021 [facility] [place] Mitral valve ring 40 mm; tricuspid valve ring 30 mm. Left atrial appendage ligation. Complicated postoperative course, requiring ECMO and nitrous oxide due to cardiogenic shock. She also had postoperative atrial fibrillation. She was admitted on 03/15/2022 with pancolitis and has been seen both by GI and surgery. There has been concern for contained perforation in the descending colon based on CT imaging. On presentation, she had been experiencing abdominal pain, diarrhea, and rectal bleeding. She apparently had been having diarrhea for approximately 3 months. She states that she has been on and off antibiotics throughout that time, including Bactrim. She also had been diagnosed with UTI in the past, prompting Bactrim. She is quite concerned that the antibiotics or her cardiac surgery in October 2021, could be somehow related to her presentation. She inquired about this several times. She also plans on calling her CT surgeon, Dr. Metzger, [place] [facility] [place] She asked if word can be sent to him in regards to her hospital stay. Her diarrhea has improved but still has diarrhea, small amounts, with eating. She admits that she has not been eating much overall. She still has some abdominal discomfort. No further vomiting. Hematochezia occurred approximately 1 week ago on presentation but has since resolved. Cardiology was consulted given tachy arrhythmia on 03/20/2022. She appeared to be in sinus on 03/20/2022 and at approximately 1:43 PM, developed what appears to be SVT. As per hospitalist service, she received adenosine according to records at 3:42 PM, she received adenosine. When reviewing telemetry, she appeared to convert to sinus rhythm. She received another dose of adenosine at 3:45 PM according to records. On telemetry, P waves were noted however there was no ventricular beat for several seconds, and she remained in sinus tachycardia. She admits that she was symptomatic with palpitations. This is not new for her. She began experiencing palpitations in approximately 2016 described as a racing sensation, typically when she needed to eat something. Episodes could last several hours but she never required cardioversion as they would spontaneously resolve. She does not recall ever being diagnosed with a specific arrhythmia as it typically occurred outside of a hospital/office setting. This is her first such episode of palpitations since her surgery in October 2021. She had been experiencing a few episodes per year up until that point. She denies chest pain, shortness of breath, syncope, edema, melena, hematuria. Her biggest concern remains her antibiotic use, and if there is any relation to her presentation and her previous cardiac surgery. Review of systems: As above. Review of systems otherwise negative/unremarkable. Family history: Father had mitral valve prolapse, and underwent mitral valve repair and then replacement. Social history: She quit smoking at approximately 28 years of age after intermittently smoking. Occasional alcohol. No drugs. She lives alone. . 3 children, who live nearby. 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 She was alone in her hospital room. Allergies Allergy/AdvReac Type Severity Reaction Status Date / Time latex Allergy Intermediate Hives-ON Verified 03/15/22 12:46 OCC WITH GLOVES, BLOWING BALLOONS amoxicillin [From Augmentin] Allergy Unknown Rash Verified 03/15/22 12:46 clavulanic acid Allergy Unknown Rash Verified 03/15/22 12:46 [From Augmentin] nitrofurantoin Allergy Unknown Rash, Verified 03/15/22 12:46 [From Macrobid] nausea hazelnut AdvReac Intermediate ASTHMATIC Verified 03/15/22 12:46 SYMPTOMS prochlorperazine AdvReac Unknown Unconscious Unverified 03/14/22 13:06 [From Compazine] DRIED FRUITS AdvReac Intermediate ASTHMATIC Uncoded 03/15/22 12:46 SYMPTOMS Home Medications Medication Instructions Recorded Confirmed Type azelastine 137 mcg (0.1 %) nasal 2 spray intranasal DAILY PRN 08/28/20 03/15/22 History spray aerosol Allergy Symptoms fluticasone propionate 50 2 spray intranasal DAILY PRN nasal 03/08/21 03/15/22 Rx mcg/actuation nasal congestion #15.8 mL spray,suspension aspirin 81 mg chewable tablet 81 mg PO DAILY 12/15/21 03/15/22 History metoprolol succinate 25 mg 12.5 mg PO BID #90 tabs 12/20/21 03/15/22 Rx tablet,extended release 24 hr lansoprazole 15 mg capsule,delayed 15 mg PO DAILY #30 caps 02/08/22 03/15/22 Rx release triamterene 37.5 1 tab PO DAILY #90 tabs 03/14/22 03/15/22 Rx mg-hydrochlorothiazide 25 mg tablet (Maxzide-25mg) denosumab 60 mg/mL subcutaneous 0 mg subcut .Q6MOS 03/15/22 03/15/22 History syringe (Prolia) Patient History Medical History Adnexal cyst Left side- per ROAD SUPERVISOR u/s 08/10/20- "lesion stable to mildly decreased in size" Anxiety Dysfunction of eustachian tube GERD (gastroesophageal reflux disease) Heart palpitations 2017-F/U DR MERRITT Mitral regurgitation Mitral valve prolapse DR. GHAZAL MERRITT Osteoporosis Sensorineural hearing loss (SNHL) of left ear with unrestricted hearing of right ear Stomach ulcer Urinary tract infection HX-"OVERACTIVE BLADDER" Surgical History History of cardiac cath NO STENTS-2016 [facility] History of colonoscopy 2014 History of dilation and curettage History of esophagogastroduodenoscopy (EGD) History of tooth extraction S/P left atrial appendage ligation S/P mitral valve repair S/P tricuspid valve repair Status post fine needle aspiration (~2000) breast Family History Brother Family hx colonic polyps Aneurysm Father Heart disease Hyperlipidemia Myocardial infarction Hypertension Sister Hyperlipidemia Breast cancer, Onset Age: 36 Hypertension Mother Osteoporosis Family history of reaction to anesthesia SLOW TO WAKE UP Denies family history of Ovarian cancer Prostate cancer Colorectal cancer Social History Smoking Status: Never smoker Tobacco Type: Cigarettes Age Started Using Tobacco: 17; Age Quit Using Tobacco: 28; packs per day: 0.5; Second Hand Exposure: Yes (SPOUSE USED TO SMOKE); Hx Alcohol Use: Yes Alcohol type: wine Alcohol Intake Frequency: Monthly or Less Hx Substance Use: No Preferred Language: Croatian Communication Ability: Effective Visual Impairment: No Limitations Hearing Ability: Normal General Studies Program Chair Required: No Beliefs That Will Affect Care: None marital status: Current Living Situation: Alone Current Living Situation Comment: SON current occupational status: employed 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 Alert and oriented. HEENT: Anicteric sclera. Neck: No JVD. No bruits. Normal carotid upstrokes bilaterally. Cardiac: PMI was nondisplaced. No ventricular heave. Regular. Normal S1-S2. 2/6 holosystolic murmur best heard at the apex. No rubs or gallops. Pulmonary: Clear to auscultation bilaterally without wheezes, rales, or rhonchi. Abdomen: Soft, nondistended, with normoactive bowel sounds. No bruits noted. Mild tenderness lower abdomen. Extremities: 2+ radial pulses bilaterally. 2+ posterior tibialis pulses bilaterally. No edema or cyanosis. Psychiatric: Affect appears appropriate. Results & Data ([facility]) Vital Signs (Past 12 Hours) Vital Signs Temp Pulse Resp BP Pulse Ox O2 Del Method 03/21/22 11:19 36.8 C 92 H 19 134/94 95 Room Air 03/21/22 07:22 36.8 C 93 H 17 123/77 95 Room Air 03/21/22 05:20 36.9 C 90 18 122/78 94 Room Air Laboratory Results Laboratory Results - last 24 hr 03/21/22 08:24 Sodium 140 Potassium 3.2 L Chloride 107 Carbon Dioxide 30 Anion Gap 3 BUN 7 Creatinine 0.71 Est Cr Clr Drug Dosing 65.4 Est GFR ( Amer) 103.6 Est GFR (Non-Af Amer) 89.4 BUN/Creatinine Ratio 9.9 L Glucose 142 H Calcium 8.3 L Magnesium 1.9 Diagnostic Findings [facility] [place], including operative note from October 2021 and other hospital records from [facility] [place]. Echo 03/21/2022: 1. Normal left ventricular size and systolic function. EF 55-60%. No regional wall motion abnormalities. Mild concentric left ventricular hypertrophy. 2. Myxomatous mitral valve s/p annuloplasty ring. Mild mitral regurgitation. 3. Compared to prior study on 06/17/2021, mitral valve annuloplasty ring is now present. Mitral regurgitation is now less significant. Telemetry personally reviewed on 03/21/2022: SVT began on 03/20/2022 at 1343, which converted to sinus tachycardia at 1543 on 03/20/2022 (reportedly after adenosine). While in sinus, there was another pause noted with P waves that were nonconducting at 1546 (presumably from second dose of adenosine). Has remained in what appears to be sinus rhythm since. ECGs personally reviewed: ECG 03/15/2022 at 8:12 AM: Sinus tachycardia at [address]/T wave abnormality. ECG 03/16/2022 at 2026: Sinus tachycardia [address]/T wave abnormality. ECG 03/16/2022 at 2032: Probable Sinus tachycardia [address]/T wave abnormality. ECG 03/20/2022 at 1510: SVT [address]/T wave abnormality. ECG 03/20/2022 at 1550: Sinus tachycardia [address]/T wave abnormality. Chart reviewed. Outpatient cardiology records reviewed. CT abdomen/pelvis 03/15/2022: Moderate diffuse thickening of the colonic wall consistent with pancolitis. Extraluminal gas of the descending colon consistent with contained perforation per radiology. Trace ascites. Chest x-ray 03/15/2022 personally reviewed: No infiltrate or pleural effusion noted on personal evaluation. Sternotomy wires noted. Radiology reports no acute abnormalities. Medications Administered Current Inpatient Medications Aspirin (Aspirin 81 Mg Ectab) 81 mg PO DAILY ARNALDO Stop: 04/15/22 08:59 Azelastine HCl (Azelastine Hcl 0.1% Nasal 200 Sprays/27,400 Mcg Btl) 2 sprays RADHA DAILY PRN PRN Reason: Allergy Symptoms Stop: 04/14/22 16:14 Cefdinir (Cefdinir 300 Mg Cap) 300 mg PO BID ARNALDO Stop: 03/31/22 20:59 Fluticasone Propionate (Fluticasone Propionate Na Spr 16 Gm Btl) 2 sprays NA DAILY PRN PRN Reason: nasal congestion Stop: 04/14/22 16:14 Last Admin: 03/19/22 17:00 Dose: 2 sprays Heparin Sodium (Porcine) (Heparin Sod 5,000 Unit/0.5 Ml Vial) 5,000 units SQ Q12 ARNALDO Stop: 04/14/22 20:59 Last Admin: 03/21/22 07:55 Dose: 5,000 units Pantoprazole Sodium 40 mg/ (Syringe) 10 mls @ 5 mls/min IV DAILY@1100 [facility] Stop: 04/15/22 10:59 Last Admin: 03/21/22 13:09 Dose: 5 mls/min Acetaminophen (Ofirmev) 1,000 mg in 100 mls @ 400 mls/hr IV Q8H PRN PRN Reason: Pain or Fever Stop: 03/22/22 08:50 Last Infusion: 03/19/22 19:45 Dose: Infused Loperamide HCl (Loperamide Hcl 2 Mg Cap) 2 mg PO TID PRN PRN Reason: Diarrhea Stop: 04/16/22 12:02 Last Admin: 03/18/22 12:00 Dose: 2 mg Melatonin (Melatonin 3 Mg Tab) 3 mg PO HS PRN PRN Reason: Sleep Stop: 04/18/22 12:28 Metoprolol Tartrate (Metoprolol Tartrate 25 Mg Tab) 25 mg PO BID [facility] Stop: 04/20/22 20:59 Metronidazole (Metronidazole 500 Mg Tab) 500 mg PO TID [facility] Stop: 03/31/22 20:59 Ondansetron HCl (Ondansetron Inj 2 Mg/Ml 2 Ml Vial) 4 mg IV Q6H PRN PRN Reason: Nausea Stop: 04/14/22 16:14 Last Admin: 03/19/22 23:14 Dose: 4 mg Sodium Chloride (Sodium Chloride 0.65% Na Soln 45 Ml ([place])) 2 sprays RADHA Q8H PRN PRN Reason: sinus/nasal symptoms Stop: 04/17/22 16:59 Triamterene/Hydrochlorothiazide (Triamterene/Hctz 37.5/25mg Tab) 1 tab PO DAILY [facility] Stop: 04/15/22 08:59 PG Care Time/CCT Total # of Minutes Spent Total Time Spent with Patient: Total time spent is greater than 50% in coordination of care (as documented) at patient's floor/unit and/or counseling patient: Coding Level of Care Code 36216 INT INP/OBS CARE 3/75MIN Diagnoses SVT (supraventricular tachycardia) I47.1 S/P mitral valve repair Z98.890 S/P tricuspid valve repair Z98.890 Mitral valve prolapse I34.1 Hypokalemia E87.6 Mitral regurgitation I34.0 Time Spent (min) 78
--- NOTE | 2022-03-21 18:51 | Billing Data ---
Date of Service March 21, 2022 Coding Level of Care Code 78851 SUB INP/OBS CARE MIN
--- NOTE | 2022-03-21 18:51 | Billing Data ---
Date of Service March 21, 2022 Coding Level of Care Code 39049 SUB INP/OBS CARE MIN
[2022-03-21] MEDS: CEFDINIR 300 MG CAP PO SCH (21:15)
[2022-03-21] MEDS: metroNIDAZOLE 500 MG TAB PO SCH (21:15)
[2022-03-22 07:19] LABS: Albumin Globulin Ratio 1.2 (0.9-2); Albumin Level 2.9 gm/dl (3.4-5.0); BUN Creatinine Ratio 13.2 (10-20); Bilirubin,Total 0.4 mg/dl (0.2-1.0); Calcium 8.1 mg/dl (8.5-10.1); Creatinine Clr Calc Pharmacy 68.3 ml/min; Est GFR (African American) 106.4 ml/min; Est GFR (Non-African American) 91.8 ml/min; Globulin 2.5 gm/dl (2.5-4.0); Potassium 3.4 mmol/L (3.5-5.1); Total Protein 5.4 gm/dl (6.0-8.3)
--- NOTE | 2022-03-22 07:20 | Hospitalist Progress Note ---
Date of Service March 22, 2022 Assessment & Plan (1) Pancolitis: (2) Diarrhea: (3) Rectal bleeding: (4) Hypokalemia: Plan #Sepsis in the setting of pancolitis with colon perforation #Pancolitis - 3 months of chronic nonbloody diarrhea w/ acute, diffuse abdominal cramping, n/v, BRBPR at home on 03/14 and then on 03/15 morning. - WBC 12, lactate 2.3, ESR 30, CRP normal - CT A/P on 03/15: Moderate diffuse thickening of the colonic wall consistent with a pancolitis. There is extraluminal gas of the descending colon consistent with a contained perforation. Therefore, ischemic colitis would be the diagnosis of exclusion. - Neg for c dif as outpatient 12/28 - C diff and Stool studies negative on 03/15. - Was on cefepime and Flagyl for perforation. Will switch to oral abx. Started PO Flagyl 500mg TID and Cefdinir 300mg BID on 03/21. Will need to continue on abx until CT scan. - On Imodium 2mg TID prn for Diarrhea. Given two doses so far. Last dose on 03/18. Has not had an episode of diarrhea since then. Though patient states that she has not had a normal BM recently. - GI - CT re-eval in 3 weeks, then possibly colonoscopy in 4-6 weeks. - iron studies an iron of 23 and a ferritin of 271. - Transglutaminase IgA testing pending. - stop Prolia - Will continue on full liquids today and plan to continue advancing diet. -GI and surgery signed off at this time. -03/21 update: will see how patient does with transitioning to oral abx and advancing diet. Most likely can be D/C tomorrow. #SVT -Patient was found to be in SVT with HR of 134 on 03/20 without any SOB or CP. Needed adenosine which converted her to sinus rhythm. -No other issues post adenosine -Cardiology consulted and recommend to increase metoprolol to 25mg BID -ECHO showed EF 55-60, mild concentric LVH, mild MR, and myxomatous Mitral valve s/p annuloplasty ring. -No other changes needed at this time. Will continue to monitor on tele while admitted. -Should f/u with Dr. Merritt after discharge. -K repleted. #Headache - Most likely 2/2 not eating, dehydration, and should improve once patient starts to eat - Acetaminophen IV 1,000mg Q8H prn - Tramadol 25mg PO ordered once at 03/17, Though pt refused due to worry that it would upset her stomach. - Patient does not want to try any other medications for her MUÑOZ at this time and rather try acetaminophen. - Patient has been having trouble with sleeping. Given a dose of melatonin on 03/18 which helped with her sleeping. - melatonin 3mg prn for trouble with sleeping. #GIB -possibly sec to ischemic colitis -Patient c/o 2 episodes of blood on her stool. -no further bleeding and h/h staying stable -f/u CBC in one week after discharge. #Mitral valve prolapse s/p MV replacement - s/p MV replacement with annuloplasty ring and tricuspid valve annuloplasty in November - Complicated by brief atrial fibrillation in cardiogenic shock requiring ECMO and nitrous oxide for support. - No longer on rate/rhythm control or AC for a fib. 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 - Doing well per recent cardiology note 02/18 - Continue metoprolol, increased dose due to SVT as above. #Osteoporosis - Prolia injections q6 months. - Will D/C Prolia at this time per recommendations from GI. #GERD (gastroesophageal reflux disease) - Continue PPI, switch lansoprazole to Protonix per hospital formulary, ordered IV due to previously NPO, Will consider switching back to PO tomorrow. - Isolated hx of duodenal ulcer at 9 years old, no surgery, no recurrent issues. #Anxiety -Patient most likely has some undiagnosed anxiety that may be stemming from MVP surgery. -Outpatient workup and consider SSRI. Fluids: LR @ 60 Nutrition: full liquid -->advancing diet as tolerated Code status: full code Dispo: PCU/tele Thank you for allowing me to participate in the care of your patient. -Dr. Ganesh Jane PGY1 Admission and Anticipated Discharge Date Admission Date: March 15, 2022 Results & Data Results & Data ([facility]) Vital Signs (Past 12 Hours) Vital Signs Temp Pulse Resp BP Pulse Ox O2 Del Method 03/22/22 07:11 37 C 95 H 16 122/84 93 Room Air 03/22/22 03:20 36.8 C 98 H 18 115/78 92 Room Air 03/22/22 03:07 36.8 C 98 H 18 99/72 L 92 Room Air 03/21/22 23:11 36.8 C 91 H 18 129/82 94 Room Air 03/21/22 19:24 37.1 C 94 H 18 119/83 95 Room Air
[2022-03-22] MEDS: metroNIDAZOLE 500 MG TAB PO SCH ×2 (08:00→13:45)
[2022-03-22] MEDS: CEFDINIR 300 MG CAP PO SCH (08:00)
[2022-03-22] MEDS: HEPARIN SOD 5,000 UNIT/0.5 ML VIAL SQ SCH (08:01)
[2022-03-22] MEDS: METOPROLOL TARTRATE 25 MG TAB PO SCH (08:01)
[2022-03-22] MEDS ORDERED: PANTOprazole 40 MG TAB PO SCH (09:00)
--- NOTE | 2022-03-22 11:00 | Discharge Summary ---
Date of Service March 22, 2022 Admission HPI Per Admitting Provider Aline Liu is a 66-year-old female with past medical history significant for MVP s/p repair in November, post-op a fib (no longer on tx), and 3 months of diarrhea who is presenting today with onset of acute abdominal pain and rectal bleeding overnight. Patient has been dealing with chronic diarrhea and abdominal bloating for the past 3 months after coming off Bactrim in December for UTI and antibiotics during mitral valve repair in November. She was testes for c diff in December, was negative then. Her symptoms have persistent now into March, reportig 3-4 episodes of diarrhea most days, but sometimes has a day without any. Last night around 2 in the morning, patient woke up with severe abdominal cramping throughout her lower abdomen with profuse, bloody bowel movements throughout the night. She has also been nauseated and vomiting several times from the pain. No recent fever/chills, melena, hematemesis. No history of c dif. Had a duodenal ulcer at 9 years old, no surgery required, attributed to "Stress", no recurrent history of PUD. On presentation, patient has been tachycardic to [id number], otherwise vital signs within normal limits. Labs notable for WBC of 14 with left shift, potassium 2.8, lactate 3.3 with AG 17. Creatinine 1.08, baseline <0.90. T bili minimally elevated at 1.1. UA with 2030 epithelial cells, 4+ bacteria, 1+ protein, ketones, blood. CT A/P shows moderate diffuse thickening of the colonic wall consistent with pancolitis, with extraluminal gas of the descending colon consistent with contained perforation, making ischemic colitis diagnosis of exclusion. There is trace ascites, no evidence of bowel obstruction. Interval development of multiple compression deformities within the lower thoracic and lumbar spine, age-indeterminate but likely chronic Admission Exam Per Admitting Provider General: awake, alert, no apparent distress Head: Normocephalic, atraumatic ENT: PERRL, EOMI, no pharyngeal exudate, mucous membranes moist Chest: Clear to auscultation, on room air, no adventitious breath sounds Cardiac: Regular rate and rhythm, no murmur, no JVD, normal peripheral pulses, good capillary refill Abdominal: mildly TTP with deep palpation; no rebound, or guarding, not very tender with light touch; NABS x 4 quadrants, soft Extremities: Normal inspection, no peripheral edema or erythema, calfs nontender to palpation Psych: Normal mood and affect Neuro: AAO x 3, strength intact bilaterally and rated 5/5, no motor deficits, speech is clear, no peripheral sensory deficits Skin: no rash or erythema Principal Diagnosis Pancolitis with contained colon perforation Discharge Exam Constitutional: WD/WN, vitals as above comfortable; no acute distress Respiratory: normal respiratory effort, lungs clear to auscultation Cardiovascular: RRR, no murmur, no edema Gastrointestinal (Abdomen): Inspection/Auscultation: abdomen normal to inspe ction; abdomen not distended Percussion/Palpation: abdomen soft; abdomen not rigid and abdomen not firm Musculoskeletal: no cyanosis or clubbing, extremities motor strength 5/5 Skin: no rashes, warm and dry Psychiatric: A+Ox3, euthymic affect Discharge Data Allergies Allergy/AdvReac Type Severity Reaction Status Date / Time latex Allergy Intermediate Hives-ON Verified 03/15/22 12:46 OCC WITH GLOVES, BLOWING BALLOONS amoxicillin [From Augmentin] Allergy Unknown Rash Verified 03/15/22 12:46 clavulanic acid Allergy Unknown Rash Verified 03/15/22 12:46 [From Augmentin] nitrofurantoin Allergy Unknown Rash, Verified 03/15/22 12:46 [From Macrobid] nausea hazelnut AdvReac Intermediate ASTHMATIC Verified 03/15/22 12:46 SYMPTOMS prochlorperazine AdvReac Unknown Unconscious Unverified 03/14/22 13:06 [From Compazine] DRIED FRUITS AdvReac Intermediate ASTHMATIC Uncoded 03/15/22 12:46 SYMPTOMS Consultations 03/15/22 11:42 ED Decision to Admit Stat 03/15/22 14:19 Consult Gastroenterology Routine Consult General Surgery Routine 03/20/22 15:01 Consult Cardiology Routine Procedures Performed Abdomen/Pelvis CT 03/15/22 08:[address] WITH IV CONTRAST CT DOSE: 277.57 mGycm HISTORY: Vomiting. Generalized abdominal pain TECHNIQUE: Multiaxial CT images of the abdomen and pelvis were performed following the use of intravenous contrast. A dose lowering technique was utilized adhering to the principles of ALARA. COMPARISON STUDY: Abdomen and pelvis CT 10/02/2021. FINDINGS: Groundglass densities at the lung bases favor mild dependent change. There are post sternotomy changes. Eoco-xs-gjqhghdo compression deformities seen throughout the lumbar spine and T11 level which are new from the prior study. These are technically age indeterminate but likely chronic. Surgical clips seen within the right inguinal region. The liver, gallbladder, pancreas, and adrenal glands are unremarkable. There are few subcentimeter hypodense lesions within the kidneys. These are to be too small to characterize but statistically represent cysts. No hydronephrosis. The main portal vein is patent. Normal caliber abdominal aorta. No retroperitoneal lymphadenopathy. There is a left circumaortic renal vein. The bladder, uterus, bilateral adnexa are unremarkable. There is trace ascites noted. There is diffuse moderate colonic wall thickening most pronounced within the descending colon. There is extrapleural gas at the descending colon consistent with a contained perforation. No loculated fluid collections at this time to suggest an abscess. No dilated loops of bowel to suggest an obstruction. IMPRESSION: 1. Moderate diffuse thickening of the colonic wall consistent with a pancolitis. There is extraluminal gas of the descending colon consistent with a contained perforation. Therefore, ischemic colitis would be the diagnosis of exclusion. Urgent surgical consultation recommended. 2. Trace ascites. 3. No evidence for bowel obstruction. 4. Interval development of multiple compression deformities within the lower thoracic and lumbar spine. These are age-indeterminate but likely chronic. ACT 112: Negative or not required by law. Electronically signed by: Cameron Gonzalez M.D. 03/15/2022 11:04 AM Chest X-Ray 03/15/22 08:23 XR chest 1V portable CLINICAL HISTORY: chest pain, SOB TECHNIQUE: Single frontal radiograph of the chest was obtained. Comparison: Comparison is made to chest radiograph 03/07/2022 FINDINGS: Median sternotomy wires are unchanged. The cardiomediastinal silhouette is stable. Valvular prosthesis is seen. The lungs are clear. No evidence of pleural effusion or pneumothorax. IMPRESSION: No acute abnormalities and in particular no evidence of pneumonia. ACT 112: Negative or not required by law. Electronically signed by: Juarez Granger M.D. 03/15/2022 9:17 AM Ordered Studies 03/15/22 08:23 CT abd pelvis IV con only Stat Hospital Course (1) Pancolitis: (2) Diarrhea: (3) Rectal bleeding: (4) Hypokalemia: Plan #Sepsis in the setting of pancolitis with colon perforation #Pancolitis - 3 months of chronic nonbloody diarrhea w/ acute, diffuse abdominal cramping, n/v, BRBPR at home on 03/14 and then on 03/15 morning. - WBC 12, lactate 2.3, ESR 30, CRP normal on admission. - CT A/P on 03/15: Moderate diffuse thickening of the colonic wall consistent with a pancolitis. There is extraluminal gas of the descending colon consistent with a contained perforation. Therefore, ischemic colitis would be the diagnosis of exclusion. - Neg for c dif as outpatient 12/28 - C diff and Stool studies negative on 03/15. - Was on cefepime and Flagyl for perforation. Switched to oral Flagyl 500mg TID and Cefdinir 300mg BID on 03/21. - On Imodium 2mg TID prn for Diarrhea. Given two doses so far. Last dose on 03/18. Can continue prn as an outpatient. - GI consulted: - CT re-eval in 3 weeks, then possibly colonoscopy in 4-6 weeks. Continue oral axb until CT. - iron studies an iron of 23 and a ferritin of 271. - Transglutaminase IgA testing pending. - Stop Prolia - Patient's was stable at time of discharge. Able to tolerate full diet and tolerating oral axb. - F/u in [address], colonoscopy possibly in 4-6 weeks. Continue oral abx until CT results. #SVT -Patient was found to be in SVT with HR of 134 on 03/20 without any SOB or CP. Needed adenosine which converted her to sinus rhythm. -No other issues post adenosine -Cardiology consulted and recommend to increase metoprolol to 25mg BID -ECHO showed EF 55-60, mild concentric LVH, mild MR, and myxomatous Mitral valve s/p annuloplasty ring. -No other changes needed at this time. -Should f/u with Dr. Merritt after discharge. #Headache - Most likely 2/2 not eating, dehydration, and should improve once patient starts to eat - Acetaminophen IV 1,000mg Q8H prn - Tramadol 25mg PO ordered once at 03/17, Though pt refused due to worry that it would upset her stomach. - Patient does not want to try any other medications for her MUÑOZ at this time and rather try acetaminophen. - Patient has been having trouble with sleeping. Given a dose of melatonin on 03/18 which helped with her sleeping. - melatonin 3mg prn for trouble with sleeping. - No more MUÑOZ after advancing her diet. #GIB -possibly sec to ischemic colitis -Patient c/o 2 episodes of blood on her stool. -no further bleeding and h/h staying stable -f/u CBC in one week after discharge. #Mitral valve prolapse s/p MV replacement - s/p MV replacement with annuloplasty ring and tricuspid valve annuloplasty in November - Complicated by brief atrial fibrillation in cardiogenic shock requiring ECMO and nitrous oxide for support. - No longer on rate/rhythm control or AC for a fib. 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 - Doing well per recent cardiology note 02/18 - Continue metoprolol, increased dose due to SVT as above. #Osteoporosis - Prolia injections q6 months. - Will D/C Prolia at this time per recommendations from GI. - Should f/u with rheumatology for continued care. #GERD (gastroesophageal reflux disease) - Continue PPI, switch lansoprazole to Protonix per hospital formulary, ordered IV due to previously NPO, Will consider switching back to PO tomorrow. - Isolated hx of duodenal ulcer at 9 years old, no surgery, no recurrent issues. #Anxiety -Patient most likely has some undiagnosed anxiety that may be stemming from MVP surgery. -Outpatient workup and consider SSRI. Total Time Total Time Spent Total Time Spent (In Minutes): Greater than 30 Discharge Plan Discharge Items Patient Disposition: Home - Self-Care Reason For Visit: ICHEMIC COLITIS W/ CONTAINED PERFORATION Discharge Diagnosis: Pancolitis with contained colon perforation Condition on Discharge: Good Activity: Resume your previous activity Non-emergency contact: Primary Care Provider and [employer] Call non-emergency contact if: you have any medication questions, your pain is unusual for you and your temperature is above 101.5 Follow-up/Referrals: Chelsea Gonzalez MD [Primary Care Provider] - 03/31/22 10:20 am () Diet: Heart Healthy Addtl Attending Provider Instructions: You were admitted to the hospital for pancolitis with contained colon perforation . You were treated with bowel rest, antibiotics, and Imodium. A discharge summary will be sent to your primary care physician to ensure continuity of care. Please bring this discharge summary with you to your next office appointment so that your provider can review it at that time. Follow-up appointments: * Make a follow-up appointment with your PCP within the next week. It is very important that you follow up with them shortly after discharge from the hospital. * Make a follow-up appointment with Gastroenterology in 4-6 weeks for colonoscopy evaluation and to review CT scans. Their office can be reached at [phone]. * Gastroenterology requests that have a CT in 3-4 weeks time. They will arrange follow up CT for you. If you do not hear from them in a week to schedule CT. Please call their office at [phone]. * Keep all your follow-up appointments as already scheduled. If you cannot make an appointment, notify your provider. Medications: Your medication list has been reviewed and reconciled upon discharge to ensure accuracy and continuity of care. An updated list of all your medications is included with your hospital discharge paperwork. Please review this list closely, and make note of any changes. * We sent a new medication called metronidazole to your pharmacy. Take metronidazole (500mg) 1 tab three times a day until you follow up with gastroenterology. * We sent a new medication called cefdinir to your pharmacy. Take cefdinir (300mg) 1 tab twice a day until you follow up with gastroenterology. * We changed the dosage of your metoprolol and sent it your pharmacy. Take metoprolol (25mg) 1 tab twice a day. * If you have any issues filling these prescriptions, please call [phone] and ask to leave a message for Dr. Jane. * Take your medications as instructed; do not skip a dose of your medicines. Make sure all of your doctors know every medicine you are taking (including twma-lmj-bzsynrq medicines, vitamins, and supplements). Call your primary care provider before taking any new medicines (including over- the-counter medicines, vitamins, and supplements), because some of these may interact with your current medications, or may make your symptoms worse. Tell your primary care provider if you cannot afford your medications. CONTACT YOUR PRIMARY CARE PROVIDER if you experience any of the following: * Worsening of symptoms * Fever, chills, or fatigue * Difficulty following your treatment plan, or difficulty taking medications CALL 911 OR GO TO THE EMERGENCY DEPARTMENT if you experience any of the following: * Sudden, severe abdominal pain or nausea/vomiting * Severe chest pain, or chest pain that radiates (moves) to your jaw or arm * Sudden, severe shortness of breath or difficulty breathing Thank you for allowing us to participate in your care. Pending Studies at Discharge: No Stand-Alone Forms: My [facility], Smoking Cessation Medications and DC Order Prescriptions: New metronidazole 500 mg Tablet 500 mg PO TID 30 Days Qty: 90 0RF cefdinir 300 mg Capsule 300 mg PO BID 30 Days Qty: 60 0RF metoprolol tartrate 25 mg Tablet 25 mg PO BID 30 Days Qty: 60 0RF Continued triamterene-hydrochlorothiazid [Maxzide-25mg] 37.5-25 mg tablet 1 tab PO DAILY Qty: 90 3RF lansoprazole 15 mg capsule,delayed release(DR/EC) 15 mg PO DAILY Qty: 30 2RF aspirin 81 mg tablet,chewable 81 mg PO DAILY fluticasone propionate 50 mcg/actuation spray,suspension 2 spray intranasal DAILY PRN (Reason: nasal congestion) Qty: 15.8 2RF Rx Instructions: administer into each nostril Prolia 60 mg/mL Syringe 0 mg SUBCUT .Q6MOS azelastine 137 mcg (0.1 %) aerosol,spray 2 spray intranasal DAILY PRN (Reason: Allergy Symptoms) Discontinued metoprolol succinate 25 mg tablet extended release 24 hr 12.5 mg PO BID Qty: 90 3RF Discharge Orders: Discharge Order (Routine); Ordered 03/22/22 Ordered By: Ganesh Jane Admission Data Admit Date/Time: 03/15/22 11:48 Attending Provider: Kilo Daniel Admit Provider: Georges Rios Primary Care Provider: Chelsea Gonzalez Other Providers: Villa Galan ; Saul Alves ; Georges Rios ; Antoine Merritt ; Norah Amato Other Interventions: Discharge Summary Assessment (RN) Last Done: 03/22/22 13:27 Supervising Physician Co-Signing Physician Notes I personally examined the patient and verified all su points of history and exam, discussed case, and agree with decision making with Dr Jane Eating okay. Some intermittent rumbling in her stomach, as well as some nausea periodically, but overall doing well and if she feels like she can go home. Extensive discussions. Answered all questions to the best my ability. Vitals noted, in general she is awake and alert pleasantly anxious no distress. HEENT normocephalic atraumatic mucous membranes moist. Breathing unlabored no accessory muscle use good effort. Neuro without focal deficits. Exam otherwise as above Colitis with contained perforationcontinue antibiotics, at this point tolerating p.o. well, including p.o. antibiotics. Repeat CT scan in a few weeks, colonoscopy in 4-6 weeks. Suspect chronic diarrhea preceding all of this was GI mariya upset from multiple courses of antibiotics. Otherwise as above Resident Activity Tracking Resident Involvement: Resident Care Provided Care Provided: Adult Hospital Medicine
--- NOTE | 2022-03-22 18:45 | Billing Data ---
Date of Service March 22, 2022 Coding Level of Care Code HOSP INP/OBS DISCH >30 MIN
== END 2022-03-22 18:45 | disposition home or self-care (01) | DRG 871 ==
LOC: ED 07:45 → EDINP 11:48 → SUATTDRO 11:48 → 2E 16:15